=== PATIENT | male | born 1960 | race Caucasian/White ===

== ENCOUNTER → 2021-06-05 09:53 | Outpatient (CLI) | payer OTHER, MEDICAID, SELFPAY ==
[2021-06-05 11:25] LABS: Vitamin B12 > 1000 pg/mL (239-931)
== END ==
PROVIDERS: PCP Physician Assistant; Referring Provider Physician Assistant; Visit Provider Physician Assistant
DX: D51.9 Vitamin B12 deficiency anemia, unspecified (principal)
CPT/HCPCS: 36415; 82607

== ENCOUNTER → 2021-07-03 08:54 | Outpatient (CLI) | payer OTHER, MEDICAID, SELFPAY ==
[2021-07-03 10:20] LABS: Vitamin B12 986 pg/mL (239-931)
== END ==
PROVIDERS: PCP Physician Assistant; Referring Provider Physician Assistant; Visit Provider Physician Assistant
DX: D51.9 Vitamin B12 deficiency anemia, unspecified (principal)
CPT/HCPCS: 36415; 82607

== ENCOUNTER → 2021-09-02 10:31 | Outpatient (CLI) | payer OTHER, MEDICAID, SELFPAY ==
--- NOTE | 2021-09-02 10:33 | DI.RAD.S_ITS ---
PROCEDURE: XR CHEST 2V INDICATIONS: persistent cough x3 wk, slight weakness, eval for pneumonia TECHNIQUE: 2 views of the chest were acquired. COMPARISON: None. FINDINGS: Surgical changes and devices: None. Lungs and pleura: Lungs are clear. No pleural effusions or pneumothorax. Mediastinum: Mediastinal contours are normal. Heart size is normal. Bones and chest wall: No suspicious bony abnormalities. Soft tissues appear unremarkable. IMPRESSION: No acute cardiopulmonary disease. Dictated by: Shaila Cardoso M.D. on 09/02/2021 at 11:18 Approved by: Shaila Cardoso M.D. on 09/02/2021 at 11:18
== END ==
PROVIDERS: PCP Physician Assistant; Referring Provider Student in an Organized Health Care Education/Training Program; Visit Provider Student in an Organized Health Care Education/Training Program
DX: R05.3 Chronic cough (principal)
CPT/HCPCS: 71046

== ENCOUNTER → 2021-09-06 11:04 | Outpatient (CLI) | payer OTHER, MEDICAID, SELFPAY ==
[2021-09-06 14:41] LABS: Vitamin B12 986 pg/mL (239-931)
[2021-09-14 17:17] LABS: Percent Free Testosterone 1.75 % (1.50-4.20); Testosterone Free 11.59 ng/dL (5.00-21.00); Testosterone Total 662.2 ng/dL (264.0-916.0)
== END ==
PROVIDERS: Family Provider Physician Assistant; PCP Physician Assistant; Referring Provider Physician Assistant; Visit Provider Physician Assistant
DX: R53.83 Other fatigue (principal); D51.9 Vitamin B12 deficiency anemia, unspecified
CPT/HCPCS: 36415; 82607; 84402; 84403

== ENCOUNTER → 2021-09-16 08:06 | Outpatient (CLI) | payer OTHER, MEDICAID, SELFPAY ==
[2021-09-16 09:03] LABS: Add Manual Diff / Slide Review NO; Basophils Absolute Auto 100 /uL (0-100); Basophils Percent Auto 1.2 % (0-2); Eosinophils Absolute Auto 400 /uL (0-450); Eosinophils Percent Auto 7.9 % (2-4); Hematocrit 40.8 % (41-53); Hemoglobin 14.3 g/dL (13.5-17.5); Lymphocytes Absolute Auto 1700 /uL (1100-4500); Lymphocytes Percent Auto 31.9 % (25-40); Mean Corpuscular Hemoglobin 31.6 PG (26-34); Mean Corpuscular Volume 90.3 fL (80-100); Monocytes Absolute Auto 600 /uL (0-900); Monocytes Percent Auto 10.8 % (3-14); Neutrophils Absolute Auto 2600 /uL (1500-7000); Neutrophils Percent Auto 48.2 % (50-75); Platelet Count 294 X10^3/uL (150-400); Red Blood Cell Count 4.51 X10^6/uL (4.5-5.9); Red Cell Distribution Width 12.7 % (11.6-14.8); White Blood Cell Count 5.4 X10^3/uL (4.5-11.0)
[2021-09-16 09:33] LABS: Alanine Aminotransferase 19 IU/L (<50); Albumin 4.3 g/dL (3.5-5.0); Albumin Globulin Ratio 1.5 (1.0-2.8); Alkaline Phosphatase 62 U/L (38-126); Aspartate Aminotransferase 24 IU/L (17-59); BUN Creatinine Ratio 26.8 (6-22); Bilirubin Total 0.8 mg/dL (0.2-1.3); Blood Urea Nitrogen 22 mg/dL (9-20); Calcium 9.4 mg/dL (8.4-10.2); Carbon Dioxide 29 mmol/L (22-32); Chloride 103 mmol/L (98-107); Cholesterol 196 mg/dL (140-199); Estimated Glomerular Filt Rate > 60 mL/min (>60); Globulin 2.8 g/dL (1.7-4.1); Glucose 102 mg/dL (80-110); HDL Cholesterol 52 mg/dL (40-60); HEMOLYSIS < 15 (0-50); LDL Cholesterol Calculated 123 mg/dL (<100); Magnesium 2.2 mg/dL (1.6-2.3); Sodium 137 mmol/L (137-145); Total Protein 7.1 g/dL (6.3-8.2); Triglycerides 107 mg/dL (35-150)
[2021-09-16 09:42] LABS: Potassium 5.4 mmol/L (3.4-5.1)
[2021-09-16 10:38] LABS: TSH w/ Reflex to FT4 2.19 uIU/mL (0.47-4.68)
[2021-09-16 10:40] LABS: Folate > 20.0 ng/mL (2.76-20.0); Vitamin B12 914 pg/mL (239-931)
== END ==
PROVIDERS: Family Provider Physician Assistant; PCP Family Medicine; Referring Provider Family Medicine; Visit Provider Family Medicine
DX: D51.9 Vitamin B12 deficiency anemia, unspecified (principal); F41.8 Other specified anxiety disorders; Z13.220 Encounter for screening for lipoid disorders; R53.82 Chronic fatigue, unspecified
CPT/HCPCS: 36415; 80053; 80061; 82607; 82746; 83735; 84443; 85025

== ENCOUNTER 2021-11-21 09:45 | Outpatient (RCR) | payer OTHER, MEDICAID, SELFPAY ==
--- NOTE | 2021-09-05 17:36 | PT.OIE ---
Current Diagnoses Low back pain, unspecified (09/05/21) Visit Care Team Role Provider Type Katy Miller PA-C Attending Provider Non-Staff Family Provider Primary Care Provider Referring Provider Specialty: Medical Address: [address] [place] [address], [id number] Email: Physical Therapy Initial Evaluation PT-OP-A Visit Information Start: 08/30/21 20:11 Freq: Status: Active Protocol: Document 09/05/21 08:09 LRN (Rec: 09/05/21 12:06 LRN [id number]) Out-Patient Physical Therapy Visit Information Visit Information Visit Type Initial Evaluation Visit Start Time 08:15 Visit Stop Time 09:06 Total Visit Minutes 51 Visit Number 1 Evaluation Information Evaluation Date 09/05/21 PT-OP-B Current Condition Start: 08/30/21 20:11 Freq: Status: Active Protocol: Document 09/05/21 08:09 LRN (Rec: 09/05/21 12:06 LRN [id number]) Current Condition History of Current Condition Onset Date Few weeks ago. Current Complaints Pn primarily in L LB>buttock> lateral leg into big toe, little in umbilicus History of Current Condition Frequent flared up episodes of back pain that worsens for ~ 1 week. Currently in a stable place in his back. Decades of history of back pain. Always looking to try and improve. Walk/hike daily but very fragile. If turn too fast can have a lot of problems for a week. Must be careful how he sits, moves, bend over, etc. Gets numbness in the legs and into the feet when hurts self. Hopes to be able to strengthen muscle groups to stabilize core. Laser surgery to remove 2 portions of disc and remove bone spurs in the lumbar spine somewhere in [facility] for lumbar region ~ 6yrs ago and restored ability to walk. Accupuncture helped to relax for the hour, Tramadol was very helpful. Prior Treatments and Tests Has had physical therapy and variable treatments. Just came from [facility] and just had EStim and massage . Like the EStim. After surgery in [facility] had therapy ex's, and ES, massage, heat. Developmental History Developmental History Kids age 27, 23 & two 4 yr olds. Couldn't carry first 2 kids. 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 Treatment Goals Patient/Caregiver Goals Learn how to take care of the body and strengthen the core. Make him more resilient to situations and help him to be able to do more with his 4 yr old. Would love to do gardening. 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 Sometimes must ask for help to lift heavy objects and heavy objects putting away above head. Current Functional Impairments (Reported) Functional Limitations- ADL's Difficulty bending over, must be careful picking up children . Can't run Personal Factors Other Personal Factors That May Effect Has 4 yr old twins. Therapy/Recovery Decade long history of back pain and surgeries. PT-OP-C Subjective Start: 08/30/21 20:11 Freq: Status: Active Protocol: Document 09/05/21 08:09 LRN (Rec: 09/05/21 12:06 LRN [id number]) Patient Questionnaires Oswestry Low Back Index Oswestry Score 24 Oswestry Impairment 20 to 39% Impaired (Score 20- 39) OP-PT Pain Assessment Pain Assessment Grid Paper Pain Assessment Grid Completed Yes Location L LB & LE Pain Location Details L LB>buttock, radiating laterally into LLE into toe & sometimes umbilicus Intensity 8 Scale Used Numeric (0 - 10) Description Radiating Description- Other Pain range: present 2-5, when hurt 4-8. Frequency Constant Pain Aggravating Factors Activity Pain Alleviating Factors Cold,Medication,Exercise, Visual Imagery,Meditation Other Pain Alleviating Factors Walking, anti-inflammatory, meloxicam, ms relaxors not helpful, Tramadol PT-OP-G Mobility & Gait Start: 08/30/21 20:11 Freq: Status: Active Protocol: Document 09/05/21 08:09 LRN (Rec: 09/05/21 12:06 LRN [id number]) OP Gait Assessment Gait Gait Assistance Required: Independent Able to Maintain Weight Bearing Status Yes During Gait Assistive Devices Assistive Device None Comments Gait Comments Trendelenburg lean to the R. PT-OP-J Posture/Palpation/Skin Start: 08/30/21 20:11 Freq: Status: Active Protocol: Document 09/05/21 08:09 LRN (Rec: 09/05/21 12:06 LRN [id number]) Posture Evaluation Position Standing L-Spine Posture Increased Lordosis Shoulder Posture (L) Elevated Pelvis Posture Anteriorly Tilted Comments Posture Comments L leg a little atrophy, L lower paraspinals mild atrophy . L foot slightly ER'd Palpation Assessment Location Low Back Palpation Location Decreased tone at L lower paraspinals. PT-OP-K Range of Motion Start: 08/30/21 20:11 Freq: Status: Active Protocol: Document 09/05/21 08:09 LRN (Rec: 09/05/21 12:06 LRN [id number]) Lumbar Spine Range of Motion Lumbar Spine Active Degrees Testing Position Standing Flexion 80 Extension 5 Rotation Left 10 Rotation Right 10 Lateral Flexion Left 10 Lateral Flexion Right 10 ROM Limitations Pain Comments FB: 80 deg's with 60's hip flexion BB: 5 deg's with 5 deg's hip extension. Increased LLE pain with repetitive forward bend. Hip Goniometric Range of Motion Hip Right Passive Testing Position Supine Straight Leg Raise 85 Internal Rotation 20 External Rotation 30 Left Passive Testing Position Supine Straight Leg Raise 60 Internal Rotation 0 External Rotation 65 PT-OP-L Special Tests Start: 08/30/21 20:11 Freq: Status: Active Protocol: Document 09/05/21 08:09 LRN (Rec: 09/05/21 12:06 LRN [id number]) Special Tests Lumbar Spine Special Tests [place] Test Results + bilaterally Straight Leg Raise Test Results 85 R, 60 L Standing Flexion Test Results + Comments LLB/LLE pain Vertical Spine Loading Test Results - Comments No pain, pt went into extension PT-OP-M Strength Start: 08/30/21 20:11 Freq: Status: Active Protocol: Document 09/05/21 08:09 LRN (Rec: 09/05/21 12:06 LRN [id number]) Trunk Strength Trunk Manual Muscle Testing Core Stabilization Lacks stability with hip flex and AB/AD Hip Strength Hip Manual Muscle Testing Right Flexion (L2) 5 Normal Extension (S1) 4 Good Abduction 5 Normal Adduction 5 Normal External Rotation 5 Normal Internal Rotation 3 Fair Left Flexion (L2) 2+ Poor+ Extension (S1) 3- Fair- Abduction 4+ Good+ Adduction 2 Poor External Rotation 3 Fair Internal Rotation 3+ Fair+ PT-OP-Q Treatments Start: 08/30/21 20:11 Freq: Status: Active Protocol: Document 09/05/21 08:09 LRN (Rec: 09/05/21 12:06 LRN [id number]) Self-Care/Home Management Treatment Education Other Education Discussed results of evaluation, discussed at length goals, and plan of care (POC). Pt agreeable to goals and POC. Activities Self-Care/Home Management Activities Verbal review of some of pt's current home program. PT-OP-T Assessment and Plan Start: 08/30/21 20:11 Freq: Status: Active Protocol: Document 09/05/21 08:09 LRN (Rec: 09/05/21 12:06 LRN [id number]) Physical Therapy Assessment Rehab Potential Rehabilitation Potential Good Evaluation Complexity Number of Personal Factors/Comorbidities 1-2 Number of Body Systems Impaired 4 or More Clinical Presentation at Evaluation Evolving Impairments Impairments Activity Tolerance,Functional Mobility,Gait,Pain,Posture,ROM ,Soft Tissue Mobility,Strength Goals Three Impairment Strength Short Term Goal (STG) Lift a little more weight STG Duration 10/20/21 Sample Weaver Goal (LTG) Improve core strength. LTG Duration 12/06/21 Two Impairment Decreased mobility due to back L hip/LE pain. Impairment Pt requires ~ 1 week of recovery when he flares up his back. Pt has L LB/buttock pain and sometimes LE/foot pain when reaching outward to do activities. Short Term Goal (STG) Improve pt ability to be more resilient to mobility situations (less recovery time when causing a flare up) STG Duration 10/20/21 Sample Weaver Goal (LTG) Pt will be able to have greater tolerance to reaching away from body and therefore able to do more with his 4 yr olds. LTG Duration 12/06/21 One Impairment Lacks appropriage HEP Short Term Goal (STG) Pt educated in Proper body mechanics for daily activities and possibly be able to help with gardening. STG Duration 09/13/21 Group Home Goal (LTG) Pt will be educated in a self care HEP of core/hip mobility and strengthening exercises. 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 The pt is quite limited in trunk and hip mobility as well as strength in his L LE, possibly causing his Trendelenburg type gait. The pt will benefit from skilled physical therapy for pt education, therapeutic ex, manual therapy and gait training. Physical Therapy Plan Frequency and Duration Frequency of Treatment 2x/Week Plan of Care Start Date 09/05/21 Plan of Care End Date 12/06/21 Therapeutic Interventions Therapeutic Interventions Aquatic Therapy,Home Exercise Program,Joint Mobilizations, Manual Therapy,Patient/ Caregiver Education,Self-Care/ Home Management,Soft Tissue Mobilization,Taping, Therapeutic Activities, Therapeutic Exercises Modalities Cold Pack/Ice Massage,Electric Stimulation,Hot Packs, Traction- Mechanical, Ultrasound Next Visit Focus/Plan Next Note Type Treatment Note Next Visit Plan Assess Prone press ups and manual traction. Focus on decreasing soft tissue muscle guarding and pain, improving fascial mobility & improving lumbar/L hip mobility and for hip/core/pelvic stabilization. Pt education will be focused on proper transfers, proper gait, self care and home exercises.
--- NOTE | 2021-09-05 17:36 | PT.OPPOC ---
Physical, Occupational & Speech Therapy At [facility] Current Diagnoses Low back pain, unspecified (09/05/21) Visit Care Team Role Provider Type Katy Miller PA-C Attending Provider Non-Staff Family Provider Primary Care Provider Referring Provider Specialty: Medical Address: [address] [place] [address], [id number] Email: Plan Of Care PT-OP-T Assessment and Plan Start: 08/30/21 20:11 Freq: Status: Active Protocol: Document 09/05/21 08:09 LRN (Rec: 09/05/21 12:06 LRN [id number]) Physical Therapy Assessment Rehab Potential Rehabilitation Potential Good Evaluation Complexity Number of Personal Factors/Comorbidities 1-2 Number of Body Systems Impaired 4 or More Clinical Presentation at Evaluation Evolving Impairments Impairments Activity Tolerance,Functional Mobility,Gait,Pain,Posture,ROM ,Soft Tissue Mobility,Strength Goals Three Impairment Strength Short Term Goal (STG) Lift a little more weight STG Duration 10/20/21 Halfway Goal (LTG) Improve core strength. LTG Duration 12/06/21 Two Impairment Decreased mobility due to back L hip/LE pain. Impairment Pt requires ~ 1 week of recovery when he flares up his back. Pt has L LB/buttock pain and sometimes LE/foot pain when reaching outward to do activities. Short Term Goal (STG) Improve pt ability to be more resilient to mobility situations (less recovery time when causing a flare up) STG Duration 10/20/21 Halfway Goal (LTG) Pt will be able to have greater tolerance to reaching away from body and therefore able to do more with his 4 yr olds. LTG Duration 12/06/21 One Impairment Lacks appropriage HEP Short Term Goal (STG) Pt educated in Proper body mechanics for daily activities and possibly be able to help with gardening. STG Duration 09/13/21 Halfway Goal (LTG) Pt will be educated in a self care HEP of core/hip mobility and strengthening exercises. 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 The pt is quite limited in trunk and hip mobility as well as strength in his L LE, possibly causing his Trendelenburg type gait. The pt will benefit from skilled physical therapy for pt education, therapeutic ex, manual therapy and gait training. Physical Therapy Plan Frequency and Duration Frequency of Treatment 2x/Week Plan of Care Start Date 09/05/21 Plan of Care End Date 12/06/21 Therapeutic Interventions Therapeutic Interventions Aquatic Therapy,Home Exercise Program,Joint Mobilizations, Manual Therapy,Patient/ Caregiver Education,Self-Care/ Home Management,Soft Tissue Mobilization,Taping, Therapeutic Activities, Therapeutic Exercises Modalities Cold Pack/Ice Massage,Electric Stimulation,Hot Packs, Traction- Mechanical, Ultrasound Next Visit Focus/Plan Next Note Type Treatment Note Next Visit Plan Assess Prone press ups and manual traction. Focus on decreasing soft tissue muscle guarding and pain, improving fascial mobility & improving lumbar/L hip mobility and for hip/core/pelvic stabilization. Pt education will be focused on proper transfers, proper gait, self care and home exercises. Plan of Care Dates Plan of Care Start Date 09/05/21 Plan of Care End Date 12/06/21 Electronically Signed by: Vy Valentine, PT 09/06/21 4625 If you are in agreement with this Plan of Care, please return a signed and dated copy. I have reviewed this Plan of Care and certify that the skilled therapy services above are required to meet the patient?s needs. Physician Signature Date Printed Name and Credentials Clinical Instructor Signature Printed Name and Credentials
--- NOTE | 2021-09-09 15:23 | PT.OTN ---
Current Diagnoses Low back pain, unspecified (09/09/21) Physical Therapy Treatment Note PT-OP-A Visit Information Start: 08/30/21 20:11 Freq: Status: Active Protocol: Document 09/09/21 14:36 NBM (Rec: 09/09/21 18:34 NBM [id number]) Out-Patient Physical Therapy Visit Information Visit Information Visit Type Treatment Note Visit Start Time 14:35 Visit Stop Time 15:23 Total Visit Minutes 48 Visit Number 2 Number of ADMINISTRATIVE TECHNICIAN Visits 1 PT-OP-B Current Condition Start: 08/30/21 20:11 Freq: Status: Active Protocol: Document 09/05/21 08:09 LRN (Rec: 09/05/21 12:06 LRN [id number]) Current Condition History of Current Condition Onset Date Few weeks ago. Current Complaints Pn primarily in L LB>buttock> lateral leg into big toe, little in umbilicus History of Current Condition Frequent flared up episodes of back pain that worsens for ~ 1 week. Currently in a stable place in his back. Decades of history of back pain. Always looking to try and improve. Walk/hike daily but very fragile. If turn too fast can have a lot of problems for a week. Must be careful how he sits, moves, bend over, etc. Gets numbness in the legs and into the feet when hurts self. Hopes to be able to strengthen muscle groups to stabilize core. Laser surgery to remove 2 portions of disc and remove bone spurs in the lumbar spine somewhere in [facility] for lumbar region ~ 6yrs ago and restored ability to walk. Accupuncture helped to relax for the hour, Tramadol was very helpful. Prior Treatments and Tests Has had physical therapy and variable treatments. Just came from [facility] and just had EStim and massage . Like the EStim. After surgery in [facility] had therapy ex's, and ES, massage, heat. Developmental History Developmental History Kids age 27, 23 & two 4 yr olds. Couldn't carry first 2 kids. 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 Treatment Goals Patient/Caregiver Goals Learn how to take care of the body and strengthen the core. Make him more resilient to situations and help him to be able to do more with his 4 yr old. Would love to do gardening. 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 Sometimes must ask for help to lift heavy objects and heavy objects putting away above head. Current Functional Impairments (Reported) Functional Limitations- ADL's Difficulty bending over, must be careful picking up children . Can't run Personal Factors Other Personal Factors That May Effect Has 4 yr old twins. Therapy/Recovery Decade long history of back pain and surgeries. PT-OP-C Subjective Start: 08/30/21 20:11 Freq: Status: Active Protocol: Document 09/09/21 14:36 NBM (Rec: 09/09/21 18:34 NBM [id number]) OP-PT Subjective Patient Comments Patient Comments Pt reports his Left-sided low back pain flared up yesterday hiking quickly uphill and he arrives w/ pain and stiffness in his back and L hip. He states the pain is difficult to describe in words or numbers as he has learned to live w/ it for years. He used to have a home stretching program but hasn't since moving in w/ sister. due to space. PT-OP-G Mobility & Gait Start: 08/30/21 20:11 Freq: Status: Active Protocol: Document 09/05/21 08:09 LRN (Rec: 09/05/21 12:06 LRN [id number]) OP Gait Assessment Gait Gait Assistance Required: Independent Able to Maintain Weight Bearing Status Yes During Gait Assistive Devices Assistive Device None Comments Gait Comments Trendelenburg lean to the R. PT-OP-J Posture/Palpation/Skin Start: 08/30/21 20:11 Freq: Status: Active Protocol: Document 09/05/21 08:09 LRN (Rec: 09/05/21 12:06 LRN [id number]) Posture Evaluation Position Standing L-Spine Posture Increased Lordosis Shoulder Posture (L) Elevated Pelvis Posture Anteriorly Tilted Comments Posture Comments L leg a little atrophy, L lower paraspinals mild atrophy . L foot slightly ER'd Palpation Assessment Location Low Back Palpation Location Decreased tone at L lower paraspinals. PT-OP-K Range of Motion Start: 08/30/21 20:11 Freq: Status: Active Protocol: Document 09/05/21 08:09 LRN (Rec: 09/05/21 12:06 LRN [id number]) Lumbar Spine Range of Motion Lumbar Spine Active Degrees Testing Position Standing Flexion 80 Extension 5 Rotation Left 10 Rotation Right 10 Lateral Flexion Left 10 Lateral Flexion Right 10 ROM Limitations Pain Comments FB: 80 deg's with 60's hip flexion BB: 5 deg's with 5 deg's hip extension. Increased LLE pain with repetitive forward bend. Hip Goniometric Range of Motion Hip Right Passive Testing Position Supine Straight Leg Raise 85 Internal Rotation 20 External Rotation 30 Left Passive Testing Position Supine Straight Leg Raise 60 Internal Rotation 0 External Rotation 65 PT-OP-L Special Tests Start: 08/30/21 20:11 Freq: Status: Active Protocol: Document 09/05/21 08:09 LRN (Rec: 09/05/21 12:06 LRN [id number]) Special Tests Lumbar Spine Special Tests [place] Test Results + bilaterally Straight Leg Raise Test Results 85 R, 60 L Standing Flexion Test Results + Comments LLB/LLE pain Vertical Spine Loading Test Results - Comments No pain, pt went into extension PT-OP-M Strength Start: 08/30/21 20:11 Freq: Status: Active Protocol: Document 09/05/21 08:09 LRN (Rec: 09/05/21 12:06 LRN [id number]) Trunk Strength Trunk Manual Muscle Testing Core Stabilization Lacks stability with hip flex and AB/AD Hip Strength Hip Manual Muscle Testing Right Flexion (L2) 5 Normal Extension (S1) 4 Good Abduction 5 Normal Adduction 5 Normal External Rotation 5 Normal Internal Rotation 3 Fair Left Flexion (L2) 2+ Poor+ Extension (S1) 3- Fair- Abduction 4+ Good+ Adduction 2 Poor External Rotation 3 Fair Internal Rotation 3+ Fair+ PT-OP-Q Treatments Start: 08/30/21 20:11 Freq: Status: Active Protocol: Document 09/09/21 14:36 NBM (Rec: 09/09/21 18:34 NBM [id number]) Cardio Equipment Bicycle (Upright) Duration (Minutes) 4 Resistance 5 Seat Position 8 Other dc'd d/t discomfort in L glute - try Seat Position 9 Therapeutic Exercises Supine Exercises LTR Supine Exercise Name Lower trunk rotation Side bilateral Equipment Used Green TBall Reps/Minutes x10 ea IT Band stretch Side bilateral Equipment Used w/ strap Reps/Minutes 2 x 60 ea Calf stretch Supine Exercise Name added to HEP Side bilateral Equipment Used w/strap Reps/Minutes 2 x 60 ea HS Stretch Supine Exercise Name added to HEP Side bilateral Equipment Used w/ strap Reps/Minutes 2 x 60 ea Piriformis Stretch Supine Exercise Name Figure 4 stretch - added to HEP Side bilateral Reps/Minutes 2 x 60 ea Comments long towel instead of hands to avoid thoracic/cervical flexion SKTC Supine Exercise Name added to HEP Side bilateral Reps/Minutes 2 x 60 ea Prone Exercises Press-up Reps/Minutes x3 Comments vc for form and to avoid push- up; dc'd due to LBP discomfort Sidelying Exercises Open Book Stretch Side bilateral Reps/Minutes x10 ea Comments hold in open for a few breaths Manual Therapy Treatment Soft Tissue Mobilization Hip Body Location L Glutes, L Piriformis Mobilization Type Cross-Friction,Rolling, Sustained Pressure,Trigger Point Release Intensity/Depth Moderate Body Position Prone Comments w/pillow support under LE Low Back Body Location L QL Mobilization Type Rolling,Sustained Pressure Intensity/Depth Moderate Body Position Prone Comments w/pillow support under LE Self-Care/Home Management Treatment Education Patient Education Body Mechanics,Home Exercise Program,Pain Management Other Education Discussed lying 90/90 w/ legs on chair to manage LBP. Educated on proper body mechanics with daily activities - HO given. HEP initiated: SKTC, Figure 4, HS, Calf, Open Book - HO given PT-OP-R Modalities Start: 08/30/21 20:11 Freq: Status: Active Protocol: Document 09/09/21 14:36 NBM (Rec: 09/09/21 18:37 [facility] [id number]) Hot Pack/Cold Pack Treatment Cold Pack Location Lumbar and L glute Patient Position Prone Treatment Duration (minutes) 10 Patient Tolerance Good Comments lumbar cold pack PT-OP-T Assessment and Plan Start: 08/30/21 20:11 Freq: Status: Active Protocol: Document 09/09/21 14:36 NBM (Rec: 09/09/21 18:34 [facility] [id number]) Physical Therapy Assessment Goals Three Impairment Strength Short Term Goal (STG) Lift a little more weight STG Duration 10/20/21 Mcfp Goal (LTG) Improve core strength. LTG Duration 12/06/21 Two Impairment Decreased mobility due to back L hip/LE pain. Impairment Pt requires ~ 1 week of recovery when he flares up his back. Pt has L LB/buttock pain and sometimes LE/foot pain when reaching outward to do activities. Short Term Goal (STG) Improve pt ability to be more resilient to mobility situations (less recovery time when causing a flare up) STG Duration 10/20/21 Mcfp Goal (LTG) Pt will be able to have greater tolerance to reaching away from body and therefore able to do more with his 4 yr olds. LTG Duration 12/06/21 One Impairment Lacks appropriage HEP Short Term Goal (STG) Pt educated in Proper body mechanics for daily activities and possibly be able to help with gardening. STG Duration 09/13/21 Line Service Person Goal (LTG) Pt will be educated in a self care HEP of core/hip mobility and strengthening exercises. LTG Duration 12/06/21 Assessment Summary Assessment Pt presents w/ left-sided low back pain flare-up since yesterday w/ associated L hip pain. Treatment focus today on improving fascial mobility and lumbar/L hip mobility - HO given for HEP and performing daily activities w/ improved body mechanics. Pt unable to tolerate upright bicycle due to L glute discomfort or prone press-ups due to low back discomfort. Pt tolerated manual therapy and reported decreased pain end of session. Pt will benefit from continued skilled therapeutic intervention. Physical Therapy Plan Next Visit Focus/Plan Next Note Type Treatment Note Next Visit Plan Review HEP (add IT band stretch). Upright bicycle as tolerated. Reassess Prone press ups. Consider initiation of supine/quadruped core stabilization exercises and QL doorway stretch. Progress POC . POC: Manual traction. Focus on decreasing soft tissue muscle guarding and pain, improving fascial mobility & improving lumbar/L hip mobility and for hip/core/ pelvic stabilization. Pt education will be focused on proper transfers, proper gait, self care and home exercises.
--- NOTE | 2021-09-18 07:29 | PT-OP ANOTE ---
Pt cancelled appt via voicemail and walked in on 09/17 to report to [place] insurance issues, he is working correct and update us if unableto attend next scheduled appt otherwise plans on attending.
--- NOTE | 2021-09-24 08:17 | PT.OTN ---
Current Diagnoses Low back pain, unspecified (09/24/21) Physical Therapy Treatment Note PT-OP-A Visit Information Start: 08/30/21 20:11 Freq: Status: Active Protocol: Document 09/24/21 07:33 SP (Rec: 09/24/21 08:18 SP [id number]) Out-Patient Physical Therapy Visit Information Visit Information Visit Type Treatment Note Visit Start Time 07:33 Visit Stop Time 08:17 Total Visit Minutes 44 Visit Number 4 Number of DANCE HISTORIAN Visits 1 Evaluation Information Evaluation Date 09/05/21 PT-OP-B Current Condition Start: 08/30/21 20:11 Freq: Status: Active Protocol: Document 09/05/21 08:09 LRN (Rec: 09/05/21 12:06 LRN [id number]) Current Condition History of Current Condition Onset Date Few weeks ago. Current Complaints Pn primarily in L LB>buttock> lateral leg into big toe, little in umbilicus History of Current Condition Frequent flared up episodes of back pain that worsens for ~ 1 week. Currently in a stable place in his back. Decades of history of back pain. Always looking to try and improve. Walk/hike daily but very fragile. If turn too fast can have a lot of problems for a week. Must be careful how he sits, moves, bend over, etc. Gets numbness in the legs and into the feet when hurts self. Hopes to be able to strengthen muscle groups to stabilize core. Laser surgery to remove 2 portions of disc and remove bone spurs in the lumbar spine somewhere in [facility] for lumbar region ~ 6yrs ago and restored ability to walk. Accupuncture helped to relax for the hour, Tramadol was very helpful. Prior Treatments and Tests Has had physical therapy and variable treatments. Just came from [facility] and just had EStim and massage . Like the EStim. After surgery in [facility] had therapy ex's, and ES, massage, heat. Developmental History Developmental History Kids age 27, 23 & two 4 yr olds. Couldn't carry first 2 kids. 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 Treatment Goals Patient/Caregiver Goals Learn how to take care of the body and strengthen the core. Make him more resilient to situations and help him to be able to do more with his 4 yr old. Would love to do gardening. 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 Sometimes must ask for help to lift heavy objects and heavy objects putting away above head. Current Functional Impairments (Reported) Functional Limitations- ADL's Difficulty bending over, must be careful picking up children . Can't run Personal Factors Other Personal Factors That May Effect Has 4 yr old twins. Therapy/Recovery Decade long history of back pain and surgeries. 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 PT-OP-G Mobility & Gait Start: 08/30/21 20:11 Freq: Status: Active Protocol: Document 09/05/21 08:09 LRN (Rec: 09/05/21 12:06 LRN [id number]) OP Gait Assessment Gait Gait Assistance Required: Independent Able to Maintain Weight Bearing Status Yes During Gait Assistive Devices Assistive Device None Comments Gait Comments Trendelenburg lean to the R. PT-OP-J Posture/Palpation/Skin Start: 08/30/21 20:11 Freq: Status: Active Protocol: Document 09/05/21 08:09 LRN (Rec: 09/05/21 12:06 LRN [id number]) Posture Evaluation Position Standing L-Spine Posture Increased Lordosis Shoulder Posture (L) Elevated Pelvis Posture Anteriorly Tilted Comments Posture Comments L leg a little atrophy, L lower paraspinals mild atrophy . L foot slightly ER'd Palpation Assessment Location Low Back Palpation Location Decreased tone at L lower paraspinals. PT-OP-K Range of Motion Start: 08/30/21 20:11 Freq: Status: Active Protocol: Document 09/05/21 08:09 LRN (Rec: 09/05/21 12:06 LRN [id number]) Lumbar Spine Range of Motion Lumbar Spine Active Degrees Testing Position Standing Flexion 80 Extension 5 Rotation Left 10 Rotation Right 10 Lateral Flexion Left 10 Lateral Flexion Right 10 ROM Limitations Pain Comments FB: 80 deg's with 60's hip flexion BB: 5 deg's with 5 deg's hip extension. Increased LLE pain with repetitive forward bend. Hip Goniometric Range of Motion Hip Right Passive Testing Position Supine Straight Leg Raise 85 Internal Rotation 20 External Rotation 30 Left Passive Testing Position Supine Straight Leg Raise 60 Internal Rotation 0 External Rotation 65 PT-OP-L Special Tests Start: 08/30/21 20:11 Freq: Status: Active Protocol: Document 09/05/21 08:09 LRN (Rec: 09/05/21 12:06 LRN [id number]) Special Tests Lumbar Spine Special Tests [place] Test Results + bilaterally Straight Leg Raise Test Results 85 R, 60 L Standing Flexion Test Results + Comments LLB/LLE pain Vertical Spine Loading Test Results - Comments No pain, pt went into extension PT-OP-M Strength Start: 08/30/21 20:11 Freq: Status: Active Protocol: Document 09/05/21 08:09 LRN (Rec: 09/05/21 12:06 LRN [id number]) Trunk Strength Trunk Manual Muscle Testing Core Stabilization Lacks stability with hip flex and AB/AD Hip Strength Hip Manual Muscle Testing Right Flexion (L2) 5 Normal Extension (S1) 4 Good Abduction 5 Normal Adduction 5 Normal External Rotation 5 Normal Internal Rotation 3 Fair Left Flexion (L2) 2+ Poor+ Extension (S1) 3- Fair- Abduction 4+ Good+ Adduction 2 Poor External Rotation 3 Fair Internal Rotation 3+ Fair+ PT-OP-Q Treatments Start: 08/30/21 20:11 Freq: Status: Active Protocol: Document 09/24/21 07:33 SP (Rec: 09/24/21 08:18 SP [id number]) Cardio Equipment Bicycle (Upright) Duration (Minutes) 6 Resistance 10 Seat Position 10 Therapeutic Exercises Supine Exercises Iliopsoas stretch Supine Exercise Name HEP reviewed: Iliopsoas stretch Side bilateral Reps/Minutes 60 x 2 each LTR Supine Exercise Name HEP reviewed : Lower trunk rotation Side bilateral Equipment Used Green TBall Reps/Minutes x10 ea HS Stretch Supine Exercise Name HEP REviewed: Hamstring/LE neural stretch Side bilateral Equipment Used w/ strap Reps/Minutes 2 x 60 ea Sitting Exercises self STMs Sitting Exercise Name rolling pin: quad, HS, calf, ITB; ball wall: gluts, ES Comments added to HEP with good feedback response Other Exercises Quadruped Other Exercise Name cat camel, UE/LE Ext- added HEP Side bilateral Reps/Minutes 5 reps Comments g Manual Therapy Treatment Soft Tissue Mobilization iliopsoas Body Location L>R Mobilization Type Sustained Pressure Intensity/Depth Moderate Body Position Hooklying Comments Manual with breath Self-Care/Home Management Treatment Education Patient Education Home Exercise Program,Posture Other Education Initiated self STMs ball wall, rolling pin, quadruped UE/ LE ext, cat camel. PT-OP-R Modalities Start: 08/30/21 20:11 Freq: Status: Active Protocol: Document 09/09/21 14:36 NBM (Rec: 09/09/21 18:37 NBM [id number]) Hot Pack/Cold Pack Treatment Cold Pack Location Lumbar and L glute Patient Position Prone Treatment Duration (minutes) 10 Patient Tolerance Good Comments lumbar cold pack PT-OP-T Assessment and Plan Start: 08/30/21 20:11 Freq: Status: Active Protocol: Document 09/24/21 07:33 SP (Rec: 09/24/21 08:18 SP [id number]) Physical Therapy Assessment Goals Three Impairment Strength Short Term Goal (STG) Lift a little more weight STG Duration 10/20/21 Correction Goal (LTG) Improve core strength. LTG Duration 12/06/21 Two Impairment Decreased mobility due to back L hip/LE pain. Impairment Pt requires ~ 1 week of recovery when he flares up his back. Pt has L LB/buttock pain and sometimes LE/foot pain when reaching outward to do activities. Short Term Goal (STG) Improve pt ability to be more resilient to mobility situations (less recovery time when causing a flare up) STG Duration 10/20/21 Correction Goal (LTG) Pt will be able to have greater tolerance to reaching away from body and therefore able to do more with his 4 yr olds. LTG Duration 12/06/21 One Impairment Lacks appropriage HEP Short Term Goal (STG) Pt educated in Proper body mechanics for daily activities and possibly be able to help with gardening. STG Duration 09/13/21 (09/13/21: MET GOAL) Water Plumber Goal (LTG) Pt will be educated in a self care HEP of core/hip mobility and strengthening exercises. (09/13/21: HEP: hip mobility ex's) 09/24/21: Initiated self STMs ball wall, rolling pin, quadruped UE/ LE ext, cat camel. LTG Duration 12/06/21 (09/24/21: Progressed ) Assessment Summary Assessment Pt responded well to manual over iliopsoas, noted releasing into LB and RLE, has never felt before. Instruduced self STMs LE w/ rolling pin and racquetball on wall to LB, glut region for decrease tightness with good feedback response. Intiated cat camel, limited end range/ encouraged increase ROM, core UE/ LE ext with cues for neutral pelvis and only lift range can stabilize and space between BLEs for increase hip abd fac [id number]. Physical Therapy Plan Frequency and Duration Frequency of Treatment 2x/Week Plan of Care Start Date 09/05/21 Plan of Care End Date 12/06/21 Therapeutic Interventions Therapeutic Interventions Aquatic Therapy,Home Exercise Program,Joint Mobilizations, Manual Therapy,Patient/ Caregiver Education,Self-Care/ Home Management,Soft Tissue Mobilization,Taping, Therapeutic Activities, Therapeutic Exercises Modalities Cold Pack/Ice Massage,Electric Stimulation,Hot Packs, Traction- Mechanical, Ultrasound Next Visit Focus/Plan Next Note Type Treatment Note Next Visit Plan Review HEP added bird dog/self stms, Next: add IT band stretch, bug, doorway ql stretch. Pt education on proper gait, self care and home exercises. Start core strengthening. Progress POC. POC: Manual traction. Focus on decreasing soft tissue muscle guarding and pain, improving fascial mobility & improving lumbar/L hip mobility and for hip/core/ pelvic stabilization.
--- NOTE | 2021-09-27 09:45 | PT.OTN ---
Current Diagnoses Low back pain, unspecified (09/27/21) Physical Therapy Treatment Note PT-OP-A Visit Information Start: 08/30/21 20:11 Freq: Status: Active Protocol: Document 09/27/21 09:00 SP (Rec: 09/27/21 09:48 SP [id number]) Out-Patient Physical Therapy Visit Information Visit Information Visit Type Treatment Note Visit Start Time 09:00 Visit Stop Time 09:45 Total Visit Minutes 45 Visit Number 5 Number of CLAY MINE CUTTING MACHINE OPERATOR Visits 2 Evaluation Information Evaluation Date 09/05/21 PT-OP-B Current Condition Start: 08/30/21 20:11 Freq: Status: Active Protocol: Document 09/05/21 08:09 LRN (Rec: 09/05/21 12:06 LRN [id number]) Current Condition History of Current Condition Onset Date Few weeks ago. Current Complaints Pn primarily in L LB>buttock> lateral leg into big toe, little in umbilicus History of Current Condition Frequent flared up episodes of back pain that worsens for ~ 1 week. Currently in a stable place in his back. Decades of history of back pain. Always looking to try and improve. Walk/hike daily but very fragile. If turn too fast can have a lot of problems for a week. Must be careful how he sits, moves, bend over, etc. Gets numbness in the legs and into the feet when hurts self. Hopes to be able to strengthen muscle groups to stabilize core. Laser surgery to remove 2 portions of disc and remove bone spurs in the lumbar spine somewhere in [facility] for lumbar region ~ 6yrs ago and restored ability to walk. Accupuncture helped to relax for the hour, Tramadol was very helpful. Prior Treatments and Tests Has had physical therapy and variable treatments. Just came from [facility] and just had EStim and massage . Like the EStim. After surgery in [facility] had therapy ex's, and ES, massage, heat. Developmental History Developmental History Kids age 27, 23 & two 4 yr olds. Couldn't carry first 2 kids. 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 Treatment Goals Patient/Caregiver Goals Learn how to take care of the body and strengthen the core. Make him more resilient to situations and help him to be able to do more with his 4 yr old. Would love to do gardening. 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 Sometimes must ask for help to lift heavy objects and heavy objects putting away above head. Current Functional Impairments (Reported) Functional Limitations- ADL's Difficulty bending over, must be careful picking up children . Can't run Personal Factors Other Personal Factors That May Effect Has 4 yr old twins. Therapy/Recovery Decade long history of back pain and surgeries. PT-OP-C Subjective Start: 08/30/21 20:11 Freq: Status: Active Protocol: Document 09/27/21 09:00 SP (Rec: 09/27/21 09:48 SP [id number]) OP-PT Subjective Patient Comments Patient Comments Pt reports pretty good after last tx, LB not aggrevated upon arrival always there just stiffness today. I hike daily, 9 miles on , 5 miles Thu, 3 miles Th, no pack . PT-OP-G Mobility & Gait Start: 08/30/21 20:11 Freq: Status: Active Protocol: Document 09/05/21 08:09 LRN (Rec: 09/05/21 12:06 LRN [id number]) OP Gait Assessment Gait Gait Assistance Required: Independent Able to Maintain Weight Bearing Status Yes During Gait Assistive Devices Assistive Device None Comments Gait Comments Trendelenburg lean to the R. PT-OP-J Posture/Palpation/Skin Start: 08/30/21 20:11 Freq: Status: Active Protocol: Document 09/05/21 08:09 LRN (Rec: 09/05/21 12:06 LRN [id number]) Posture Evaluation Position Standing L-Spine Posture Increased Lordosis Shoulder Posture (L) Elevated Pelvis Posture Anteriorly Tilted Comments Posture Comments L leg a little atrophy, L lower paraspinals mild atrophy . L foot slightly ER'd Palpation Assessment Location Low Back Palpation Location Decreased tone at L lower paraspinals. PT-OP-K Range of Motion Start: 08/30/21 20:11 Freq: Status: Active Protocol: Document 09/05/21 08:09 LRN (Rec: 09/05/21 12:06 LRN [id number]) Lumbar Spine Range of Motion Lumbar Spine Active Degrees Testing Position Standing Flexion 80 Extension 5 Rotation Left 10 Rotation Right 10 Lateral Flexion Left 10 Lateral Flexion Right 10 ROM Limitations Pain Comments FB: 80 deg's with 60's hip flexion BB: 5 deg's with 5 deg's hip extension. Increased LLE pain with repetitive forward bend. Hip Goniometric Range of Motion Hip Right Passive Testing Position Supine Straight Leg Raise 85 Internal Rotation 20 External Rotation 30 Left Passive Testing Position Supine Straight Leg Raise 60 Internal Rotation 0 External Rotation 65 PT-OP-L Special Tests Start: 08/30/21 20:11 Freq: Status: Active Protocol: Document 09/05/21 08:09 LRN (Rec: 09/05/21 12:06 LRN [id number]) Special Tests Lumbar Spine Special Tests [place] Test Results + bilaterally Straight Leg Raise Test Results 85 R, 60 L Standing Flexion Test Results + Comments LLB/LLE pain Vertical Spine Loading Test Results - Comments No pain, pt went into extension PT-OP-M Strength Start: 08/30/21 20:11 Freq: Status: Active Protocol: Document 09/05/21 08:09 LRN (Rec: 09/05/21 12:06 LRN [id number]) Trunk Strength Trunk Manual Muscle Testing Core Stabilization Lacks stability with hip flex and AB/AD Hip Strength Hip Manual Muscle Testing Right Flexion (L2) 5 Normal Extension (S1) 4 Good Abduction 5 Normal Adduction 5 Normal External Rotation 5 Normal Internal Rotation 3 Fair Left Flexion (L2) 2+ Poor+ Extension (S1) 3- Fair- Abduction 4+ Good+ Adduction 2 Poor External Rotation 3 Fair Internal Rotation 3+ Fair+ PT-OP-Q Treatments Start: 08/30/21 20:11 Freq: Status: Active Protocol: Document 09/27/21 09:00 SP (Rec: 09/27/21 09:48 SP [id number]) Cardio Equipment Bicycle (Upright) Duration (Minutes) 6 Resistance 10 Seat Position 10 Other 83PRMs, 3.12 miles Gym Equipment Therapeutic Ball pelvic tilts Exercise Details f/b/ lateral Ball Size/Color 65cm Body Position Sitting Reps/Duration 4 min Comments cued chest lift, forward posturing over pelvis, challenging L lateral WB into ball with reported weakness ( next tx 75cm tball) FF, HABD ROM/Stretch Ball Size/Color 65cm Body Position Supine Reps/Duration 4 min Comments cued bridge neutral pelvis core fac stability w/ FF and pec stretch HABD ROM Therapeutic Exercises Supine Exercises HS Stretch Supine Exercise Name HEP REviewed: Hamstring/LE neural stretch Side bilateral Equipment Used w/ strap Reps/Minutes 2 x 60 ea Standing Exercises D2 flexion Standing Exercise Name Trial in PT Side bilateral Resistance 4.5 # black med ball Reps/Minutes x10 each direction Comments cued posturing and wt close to body and full into ext w/ rotation chops Standing Exercise Name Trialed in PT Side bilateral Resistance TB #3 Reps/Minutes x15 each side Comments cued for set up and proper form: full ext into rotate opp knee flexion Other Exercises 1/2 knee hip flexor stretch Other Exercise Name trial in PT Side left Equipment Used contact table, pillow under L knee Reps/Minutes 20s x2 Comments cued neutral pelvis, lean forward into R front LE- ant hip stretch Manual Therapy Treatment Soft Tissue Mobilization iliopsoas Body Location L Mobilization Type Sustained Pressure Intensity/Depth Moderate Body Position Hooklying Comments Manual with breath, good LB releases reported Hip Body Location L Glutes, L Piriformis Mobilization Type Cross-Friction,Rolling, Sustained Pressure,Trigger Point Release Intensity/Depth Moderate Body Position Prone Comments w/pillow support under LE Low Back Body Location L QL Mobilization Type Rolling,Sustained Pressure Intensity/Depth Moderate Body Position Prone Comments w/pillow support under LE PT-OP-R Modalities Start: 08/30/21 20:11 Freq: Status: Active Protocol: Document 09/09/21 14:36 NBM (Rec: 09/09/21 18:37 NBM [id number]) Hot Pack/Cold Pack Treatment Cold Pack Location Lumbar and L glute Patient Position Prone Treatment Duration (minutes) 10 Patient Tolerance Good Comments lumbar cold pack PT-OP-T Assessment and Plan Start: 08/30/21 20:11 Freq: Status: Active Protocol: Document 09/27/21 09:00 SP (Rec: 09/27/21 09:48 SP [id number]) Physical Therapy Assessment Goals Three Impairment Strength Short Term Goal (STG) Lift a little more weight STG Duration 10/20/21 Collar Stay Fuser Tender Goal (LTG) Improve core strength. LTG Duration 12/06/21 Two Impairment Decreased mobility due to back L hip/LE pain. Impairment Pt requires ~ 1 week of recovery when he flares up his back. Pt has L LB/buttock pain and sometimes LE/foot pain when reaching outward to do activities. Short Term Goal (STG) Improve pt ability to be more resilient to mobility situations (less recovery time when causing a flare up) STG Duration 10/20/21 Collar Stay Fuser Tender Goal (LTG) Pt will be able to have greater tolerance to reaching away from body and therefore able to do more with his 4 yr olds. LTG Duration 12/06/21 One Impairment Lacks appropriage HEP Short Term Goal (STG) Pt educated in Proper body mechanics for daily activities and possibly be able to help with gardening. STG Duration 09/13/21 (09/13/21: MET GOAL) Collar Stay Fuser Tender Goal (LTG) Pt will be educated in a self care HEP of core/hip mobility and strengthening exercises. (09/13/21: HEP: hip mobility ex's) 09/24/21: Initiated self STMs ball wall, rolling pin, quadruped UE/ LE ext, cat camel. LTG Duration 12/06/21 (09/24/21: Progressed ) Assessment Summary Assessment Pt responded well to manual, mario psoas. End tx shown 1/2 kneel hip flexor stretch ( recheck next tx). Pt wanted to progress more active standing . Intiated chops with mod cuing for trunk alignment, challenged and caused irritation LB and improved post manual psoas release. Physical Therapy Plan Frequency and Duration Frequency of Treatment 2x/Week Plan of Care Start Date 09/05/21 Plan of Care End Date 12/06/21 Therapeutic Interventions Therapeutic Interventions Aquatic Therapy,Home Exercise Program,Joint Mobilizations, Manual Therapy,Patient/ Caregiver Education,Self-Care/ Home Management,Soft Tissue Mobilization,Taping, Therapeutic Activities, Therapeutic Exercises Modalities Cold Pack/Ice Massage,Electric Stimulation,Hot Packs, Traction- Mechanical, Ultrasound Next Visit Focus/Plan Next Note Type Treatment Note Next Visit Plan Review HEP added bird dog/self stms, Next: next tx modify med ball trunk rotation/ TB and STS with resistance, functional strengthening, add IT band stretch, bug, doorway ql stretch. Pt education on proper gait, self care and home exercises. Start core strengthening. Progress POC. POC: Manual traction. Focus on decreasing soft tissue muscle guarding and pain, improving fascial mobility & improving lumbar/L hip mobility and for hip/core/ pelvic stabilization.
--- NOTE | 2021-10-02 09:45 | PT.OTN ---
Current Diagnoses Low back pain, unspecified (10/02/21) Physical Therapy Treatment Note PT-OP-A Visit Information Start: 08/30/21 20:11 Freq: Status: Active Protocol: Document 10/02/21 09:04 SP (Rec: 10/02/21 09:53 SP [id number]) Out-Patient Physical Therapy Visit Information Visit Information Visit Type Treatment Note Visit Start Time 09:04 Visit Stop Time 09:45 Total Visit Minutes 41 Visit Number 6 Number of CAT SCAN TECHNOLOGIST Visits 3 Evaluation Information Evaluation Date 09/05/21 PT-OP-B Current Condition Start: 08/30/21 20:11 Freq: Status: Active Protocol: Document 09/05/21 08:09 LRN (Rec: 09/05/21 12:06 LRN [id number]) Current Condition History of Current Condition Onset Date Few weeks ago. Current Complaints Pn primarily in L LB>buttock> lateral leg into big toe, little in umbilicus History of Current Condition Frequent flared up episodes of back pain that worsens for ~ 1 week. Currently in a stable place in his back. Decades of history of back pain. Always looking to try and improve. Walk/hike daily but very fragile. If turn too fast can have a lot of problems for a week. Must be careful how he sits, moves, bend over, etc. Gets numbness in the legs and into the feet when hurts self. Hopes to be able to strengthen muscle groups to stabilize core. Laser surgery to remove 2 portions of disc and remove bone spurs in the lumbar spine somewhere in [facility] for lumbar region ~ 6yrs ago and restored ability to walk. Accupuncture helped to relax for the hour, Tramadol was very helpful. Prior Treatments and Tests Has had physical therapy and variable treatments. Just came from [facility] and just had EStim and massage . Like the EStim. After surgery in [facility] had therapy ex's, and ES, massage, heat. Developmental History Developmental History Kids age 27, 23 & two 4 yr olds. Couldn't carry first 2 kids. 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 Treatment Goals Patient/Caregiver Goals Learn how to take care of the body and strengthen the core. Make him more resilient to situations and help him to be able to do more with his 4 yr old. Would love to do gardening. 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 Sometimes must ask for help to lift heavy objects and heavy objects putting away above head. Current Functional Impairments (Reported) Functional Limitations- ADL's Difficulty bending over, must be careful picking up children . Can't run Personal Factors Other Personal Factors That May Effect Has 4 yr old twins. Therapy/Recovery Decade long history of back pain and surgeries. PT-OP-C Subjective Start: 08/30/21 20:11 Freq: Status: Active Protocol: Document 10/02/21 09:04 SP (Rec: 10/02/21 09:53 SP [id number]) OP-PT Subjective Patient Comments Patient Comments Pt reports did some play with kids, used their scooters standing on 1 LE and with single leg propel exacerbated anterior L hip. Also lifting them up on playground equipment (4y/o twins) and does irritate back. PT-OP-G Mobility & Gait Start: 08/30/21 20:11 Freq: Status: Active Protocol: Document 09/05/21 08:09 LRN (Rec: 09/05/21 12:06 LRN [id number]) OP Gait Assessment Gait Gait Assistance Required: Independent Able to Maintain Weight Bearing Status Yes During Gait Assistive Devices Assistive Device None Comments Gait Comments Trendelenburg lean to the R. PT-OP-J Posture/Palpation/Skin Start: 08/30/21 20:11 Freq: Status: Active Protocol: Document 09/05/21 08:09 LRN (Rec: 09/05/21 12:06 LRN [id number]) Posture Evaluation Position Standing L-Spine Posture Increased Lordosis Shoulder Posture (L) Elevated Pelvis Posture Anteriorly Tilted Comments Posture Comments L leg a little atrophy, L lower paraspinals mild atrophy . L foot slightly ER'd Palpation Assessment Location Low Back Palpation Location Decreased tone at L lower paraspinals. PT-OP-K Range of Motion Start: 08/30/21 20:11 Freq: Status: Active Protocol: Document 09/05/21 08:09 LRN (Rec: 09/05/21 12:06 LRN [id number]) Lumbar Spine Range of Motion Lumbar Spine Active Degrees Testing Position Standing Flexion 80 Extension 5 Rotation Left 10 Rotation Right 10 Lateral Flexion Left 10 Lateral Flexion Right 10 ROM Limitations Pain Comments FB: 80 deg's with 60's hip flexion BB: 5 deg's with 5 deg's hip extension. Increased LLE pain with repetitive forward bend. Hip Goniometric Range of Motion Hip Right Passive Testing Position Supine Straight Leg Raise 85 Internal Rotation 20 External Rotation 30 Left Passive Testing Position Supine Straight Leg Raise 60 Internal Rotation 0 External Rotation 65 PT-OP-L Special Tests Start: 08/30/21 20:11 Freq: Status: Active Protocol: Document 09/05/21 08:09 LRN (Rec: 09/05/21 12:06 LRN [id number]) Special Tests Lumbar Spine Special Tests [place] Test Results + bilaterally Straight Leg Raise Test Results 85 R, 60 L Standing Flexion Test Results + Comments LLB/LLE pain Vertical Spine Loading Test Results - Comments No pain, pt went into extension PT-OP-M Strength Start: 08/30/21 20:11 Freq: Status: Active Protocol: Document 09/05/21 08:09 LRN (Rec: 09/05/21 12:06 LRN [id number]) Trunk Strength Trunk Manual Muscle Testing Core Stabilization Lacks stability with hip flex and AB/AD Hip Strength Hip Manual Muscle Testing Right Flexion (L2) 5 Normal Extension (S1) 4 Good Abduction 5 Normal Adduction 5 Normal External Rotation 5 Normal Internal Rotation 3 Fair Left Flexion (L2) 2+ Poor+ Extension (S1) 3- Fair- Abduction 4+ Good+ Adduction 2 Poor External Rotation 3 Fair Internal Rotation 3+ Fair+ PT-OP-Q Treatments Start: 08/30/21 20:11 Freq: Status: Active Protocol: Document 10/02/21 09:04 SP (Rec: 10/02/21 09:53 SP [id number]) Therapeutic Exercises Supine Exercises HS Stretch Supine Exercise Name HEP REviewed: Hamstring/LE neural stretch Side bilateral Equipment Used w/ strap Reps/Minutes 2 x 60 ea Piriformis Stretch Supine Exercise Name Figure 4 stretch - added to HEP Side bilateral Reps/Minutes 2 x 60 ea Comments long towel instead of hands to avoid thoracic/cervical flexion Standing Exercises downward dog Standing Exercise Name added toHEP: HS and calf stretch Reps/Minutes 30 x2 Comments good feedback to toe raises Standing Exercise Name added to HEP Equipment Used back to wall Comments active calf stretch/ ROM LS rotation stretch Standing Exercise Name reviewed rotation Side bilateral Reps/Minutes 5 reps x15 sec hold Comments good form painfree and for use ontrials when back tightens up trunk wt shift rotation Standing Exercise Name LS rotation w/ wt shift for mechanics lifting boxes moving Resistance 10# in basket then med ball Equipment Used added to HEP Reps/Minutes 2x5 Comments lifting off floor and turn to place, Gym med ball chops Standing Exercise Name added to HEP Side bilateral Resistance 10 # med ball Reps/Minutes x5 each side Comments cued for set up and proper form: full ext into rotate opp knee flexion Other Exercises 1/2 knee hip flexor stretch Other Exercise Name recheck next tx Side left Equipment Used contact table, pillow under L knee Reps/Minutes 20s x2 Comments cued neutral pelvis, lean forward into R front LE- ant hip stretch Quadruped Other Exercise Name cat camel, UE/LE Ext- added HEP Side bilateral Reps/Minutes 5 reps Comments g Self-Care/Home Management Treatment Education Patient Education Body Mechanics,Home Exercise Program,Posture Other Education Ed Mechanics lifting 10# in box off floor assimulate moving, picking up kids, gardening. added toe raises, down dog stretch- posterior chain stretching, med ball LS rotation PT-OP-R Modalities Start: 08/30/21 20:11 Freq: Status: Active Protocol: Document 09/09/21 14:36 NBM (Rec: 09/09/21 18:37 NBM [id number]) Hot Pack/Cold Pack Treatment Cold Pack Location Lumbar and L glute Patient Position Prone Treatment Duration (minutes) 10 Patient Tolerance Good Comments lumbar cold pack PT-OP-T Assessment and Plan Start: 08/30/21 20:11 Freq: Status: Active Protocol: Document 10/02/21 09:04 SP (Rec: 10/02/21 09:53 SP [id number]) Physical Therapy Assessment Goals Three Impairment Strength Short Term Goal (STG) Lift a little more weight STG Duration 10/20/21 Assisted Goal (LTG) Improve core strength. LTG Duration 12/06/21 Two Impairment Decreased mobility due to back L hip/LE pain. Impairment Pt requires ~ 1 week of recovery when he flares up his back. Pt has L LB/buttock pain and sometimes LE/foot pain when reaching outward to do activities. Short Term Goal (STG) Improve pt ability to be more resilient to mobility situations (less recovery time when causing a flare up) 10/02/21: progressing: states getting more resilent with recovery, better self aware of core fac to support LBP. STG Duration 10/20/21 progressin10/02/21 Assisted Goal (LTG) Pt will be able to have greater tolerance to reaching away from body and therefore able to do more with his 4 yr olds. 10/02/21: progressing: getting better is focused on positioning pulling out water hose and reaching in car to give core support. LTG Duration 12/06/21 progressin10/02/21 One Impairment Lacks appropriage HEP Short Term Goal (STG) Pt educated in Proper body mechanics for daily activities and possibly be able to help with gardening. STG Duration 09/13/21 (09/13/21: MET GOAL) Assisted Goal (LTG) Pt will be educated in a self care HEP of core/hip mobility and strengthening exercises. (09/13/21: HEP: hip mobility ex's) 09/24/21: Initiated self STMs ball wall, rolling pin, quadruped UE/ LE ext, cat camel. 10/02/21: added downward dog, toe raises back to wall, LS rotation. LTG Duration 12/06/21 (10/02/21: Progressed) Assessment Summary Assessment Pt rseponded well to manual, stretching anterior and posterior chain and core functional strengthening to improve functional mobility. He reports does well but sometimes does something and takes time to come back from. IMproved chops and LS rotation this tx with core stability/ flexibility with just weakness in UEs with end range OH. 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 Physical Therapy Plan Frequency and Duration Frequency of Treatment 2x/Week Plan of Care Start Date 09/05/21 Plan of Care End Date 12/06/21 Therapeutic Interventions Therapeutic Interventions Aquatic Therapy,Home Exercise Program,Joint Mobilizations, Manual Therapy,Patient/ Caregiver Education,Self-Care/ Home Management,Soft Tissue Mobilization,Taping, Therapeutic Activities, Therapeutic Exercises Modalities Cold Pack/Ice Massage,Electric Stimulation,Hot Packs, Traction- Mechanical, Ultrasound Next Visit Focus/Plan Next Note Type Treatment Note Next Visit Plan Review down dog, DF strengthening, hip flexor stretching with functional core and L hip strengthenging. Next: next tx add bug, doorway ITB and QL stretch. Pt education on proper gait, self care and home exercises. Start core strengthening. Progress POC. POC: Manual traction. Focus on decreasing soft tissue muscle guarding and pain, improving fascial mobility & improving lumbar/L hip mobility and for hip/core/ pelvic stabilization.
--- NOTE | 2021-10-08 09:00 | PT.OTN ---
Current Diagnoses Low back pain, unspecified (10/08/21) Physical Therapy Treatment Note PT-OP-A Visit Information Start: 08/30/21 20:11 Freq: Status: Active Protocol: Document 10/08/21 08:19 SP (Rec: 10/08/21 09:04 SP [id number]) Out-Patient Physical Therapy Visit Information Visit Information Visit Type Treatment Note Visit Start Time 08:19 Visit Stop Time 09:00 Total Visit Minutes 41 Visit Number 7 Number of BRAIN SURGEON Visits 4 Evaluation Information Evaluation Date 09/05/21 PT-OP-B Current Condition Start: 08/30/21 20:11 Freq: Status: Active Protocol: Document 09/05/21 08:09 LRN (Rec: 09/05/21 12:06 LRN [id number]) Current Condition History of Current Condition Onset Date Few weeks ago. Current Complaints Pn primarily in L LB>buttock> lateral leg into big toe, little in umbilicus History of Current Condition Frequent flared up episodes of back pain that worsens for ~ 1 week. Currently in a stable place in his back. Decades of history of back pain. Always looking to try and improve. Walk/hike daily but very fragile. If turn too fast can have a lot of problems for a week. Must be careful how he sits, moves, bend over, etc. Gets numbness in the legs and into the feet when hurts self. Hopes to be able to strengthen muscle groups to stabilize core. Laser surgery to remove 2 portions of disc and remove bone spurs in the lumbar spine somewhere in [facility] for lumbar region ~ 6yrs ago and restored ability to walk. Accupuncture helped to relax for the hour, Tramadol was very helpful. Prior Treatments and Tests Has had physical therapy and variable treatments. Just came from [facility] and just had EStim and massage . Like the EStim. After surgery in [facility] had therapy ex's, and ES, massage, heat. Developmental History Developmental History Kids age 27, 23 & two 4 yr olds. Couldn't carry first 2 kids. 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 Treatment Goals Patient/Caregiver Goals Learn how to take care of the body and strengthen the core. Make him more resilient to situations and help him to be able to do more with his 4 yr old. Would love to do gardening. 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 Sometimes must ask for help to lift heavy objects and heavy objects putting away above head. Current Functional Impairments (Reported) Functional Limitations- ADL's Difficulty bending over, must be careful picking up children . Can't run Personal Factors Other Personal Factors That May Effect Has 4 yr old twins. Therapy/Recovery Decade long history of back pain and surgeries. PT-OP-C Subjective Start: 08/30/21 20:11 Freq: Status: Active Protocol: Document 10/08/21 08:19 SP (Rec: 10/08/21 09:04 SP [id number]) OP-PT Subjective Patient Comments Patient Comments Pt stated hiking daily low end trails about 3 miles about 1. 25 hrs. Compliant with HEP with what his younger kids will allow him without jumping on him due to in transition space moving. Was at older son 't wedding recently wearing tuxedo shoes and stood about 8 hrs, was painful in LB/ stiffness and couldn't dance, wasn't as bad as anticipated though. PT-OP-G Mobility & Gait Start: 08/30/21 20:11 Freq: Status: Active Protocol: Document 09/05/21 08:09 LRN (Rec: 09/05/21 12:06 LRN [id number]) OP Gait Assessment Gait Gait Assistance Required: Independent Able to Maintain Weight Bearing Status Yes During Gait Assistive Devices Assistive Device None Comments Gait Comments Trendelenburg lean to the R. PT-OP-J Posture/Palpation/Skin Start: 08/30/21 20:11 Freq: Status: Active Protocol: Document 09/05/21 08:09 LRN (Rec: 09/05/21 12:06 LRN [id number]) Posture Evaluation Position Standing L-Spine Posture Increased Lordosis Shoulder Posture (L) Elevated Pelvis Posture Anteriorly Tilted Comments Posture Comments L leg a little atrophy, L lower paraspinals mild atrophy . L foot slightly ER'd Palpation Assessment Location Low Back Palpation Location Decreased tone at L lower paraspinals. PT-OP-K Range of Motion Start: 08/30/21 20:11 Freq: Status: Active Protocol: Document 09/05/21 08:09 LRN (Rec: 09/05/21 12:06 LRN [id number]) Lumbar Spine Range of Motion Lumbar Spine Active Degrees Testing Position Standing Flexion 80 Extension 5 Rotation Left 10 Rotation Right 10 Lateral Flexion Left 10 Lateral Flexion Right 10 ROM Limitations Pain Comments FB: 80 deg's with 60's hip flexion BB: 5 deg's with 5 deg's hip extension. Increased LLE pain with repetitive forward bend. Hip Goniometric Range of Motion Hip Right Passive Testing Position Supine Straight Leg Raise 85 Internal Rotation 20 External Rotation 30 Left Passive Testing Position Supine Straight Leg Raise 60 Internal Rotation 0 External Rotation 65 PT-OP-L Special Tests Start: 08/30/21 20:11 Freq: Status: Active Protocol: Document 09/05/21 08:09 LRN (Rec: 09/05/21 12:06 LRN [id number]) Special Tests Lumbar Spine Special Tests [place] Test Results + bilaterally Straight Leg Raise Test Results 85 R, 60 L Standing Flexion Test Results + Comments LLB/LLE pain Vertical Spine Loading Test Results - Comments No pain, pt went into extension PT-OP-M Strength Start: 08/30/21 20:11 Freq: Status: Active Protocol: Document 09/05/21 08:09 LRN (Rec: 09/05/21 12:06 LRN [id number]) Trunk Strength Trunk Manual Muscle Testing Core Stabilization Lacks stability with hip flex and AB/AD Hip Strength Hip Manual Muscle Testing Right Flexion (L2) 5 Normal Extension (S1) 4 Good Abduction 5 Normal Adduction 5 Normal External Rotation 5 Normal Internal Rotation 3 Fair Left Flexion (L2) 2+ Poor+ Extension (S1) 3- Fair- Abduction 4+ Good+ Adduction 2 Poor External Rotation 3 Fair Internal Rotation 3+ Fair+ PT-OP-Q Treatments Start: 08/30/21 20:11 Freq: Status: Active Protocol: Document 10/08/21 08:19 SP (Rec: 10/08/21 09:04 SP [id number]) Cardio Equipment Bicycle (Upright) Duration (Minutes) 6 Resistance 10 Seat Position 6 Other 86 PRMs, 3.09miles Therapeutic Exercises Supine Exercises LTR Supine Exercise Name HEP reviewed : Lower trunk rotation Side bilateral Equipment Used Green TBall Reps/Minutes x10 ea HS Stretch Supine Exercise Name HEP REviewed: Hamstring/LE neural stretch Side bilateral Resistance pillow under head Equipment Used grasp behind thigh Reps/Minutes 2 x 60 ea Piriformis Stretch Supine Exercise Name - reviewed HEP Side bilateral Reps/Minutes 2 x 60 ea Comments long towel instead of hands to avoid thoracic/cervical flexion SKTC Supine Exercise Name reviewed HEP Side bilateral Equipment Used pillow under head Reps/Minutes 2 x 60 ea Prone Exercises Press-up Reps/Minutes x3 Comments cued TA awareness, tolerant range for anterior trunk stretch Sidelying Exercises Open Book Stretch Sidelying Exercise Name Open book stretch Side bilateral Reps/Minutes x10 ea Comments hold in open for a few breaths Sitting Exercises self STMs Sitting Exercise Name HS, calf, glut, TS ext w/ foam roller; rolling Side bilateral Resistance foam roller and rolling pin Comments good performance post therapist demonstration Standing Exercises downward dog Standing Exercise Name reviewed HEP: HS and calf stretch Reps/Minutes 30 x2 Comments challenging today Other Exercises 1/2 knee hip flexor stretch Other Exercise Name hep reviewed Side left Equipment Used contact table, pillow under L knee Reps/Minutes 20s x2 Comments good feedback stretch- deminished L upper glut pain intially felt Quadruped Other Exercise Name cat camel, UE/LE Ext- reviewed HEP Side bilateral Reps/Minutes 5 reps Comments slow progress ROM tolerant stab Manual Therapy Treatment Soft Tissue Mobilization iliopsoas Body Location L Mobilization Type Sustained Pressure Intensity/Depth Moderate Body Position Hooklying Comments Manual with breath, good LB releases reported PT-OP-R Modalities Start: 08/30/21 20:11 Freq: Status: Active Protocol: Document 09/09/21 14:36 NBM (Rec: 09/09/21 18:37 NBM [id number]) Hot Pack/Cold Pack Treatment Cold Pack Location Lumbar and L glute Patient Position Prone Treatment Duration (minutes) 10 Patient Tolerance Good Comments lumbar cold pack PT-OP-T Assessment and Plan Start: 08/30/21 20:11 Freq: Status: Active Protocol: Document 10/08/21 08:19 SP (Rec: 10/08/21 09:04 SP [id number]) Physical Therapy Assessment Goals Three Impairment Strength Short Term Goal (STG) Lift a little more weight STG Duration 10/20/21 Paper Coating Supervisor Goal (LTG) Improve core strength. LTG Duration 12/06/21 Two Impairment Decreased mobility due to back L hip/LE pain. Impairment Pt requires ~ 1 week of recovery when he flares up his back. Pt has L LB/buttock pain and sometimes LE/foot pain when reaching outward to do activities. Short Term Goal (STG) Improve pt ability to be more resilient to mobility situations (less recovery time when causing a flare up) 10/02/21: progressing: states getting more resilent with recovery, better self aware of core fac to support LBP. STG Duration 10/20/21 progressin10/02/21 Paper Coating Supervisor Goal (LTG) Pt will be able to have greater tolerance to reaching away from body and therefore able to do more with his 4 yr olds. 10/02/21: progressing: getting better is focused on positioning pulling out water hose and reaching in car to give core support. LTG Duration 12/06/21 progressin10/02/21 One Impairment Lacks appropriage HEP Short Term Goal (STG) Pt educated in Proper body mechanics for daily activities and possibly be able to help with gardening. STG Duration 09/13/21 (09/13/21: MET GOAL) Penitentiary Goal (LTG) Pt will be educated in a self care HEP of core/hip mobility and strengthening exercises. (09/13/21: HEP: hip mobility ex's) 09/24/21: Initiated self STMs ball wall, rolling pin, quadruped UE/ LE ext, cat camel. 10/02/21: added downward dog, toe raises back to wall, LS rotation. LTG Duration 12/06/21 (10/02/21: Progressed) Assessment Summary Assessment Pt improved hip flexor mobility into trunk extension and lumbar tension reported when arrived post manual, stretching and initiated foam and rolling stick for self STM options. I feel more open now and able to stand more upright. Physical Therapy Plan Frequency and Duration Frequency of Treatment 2x/Week Plan of Care Start Date 09/05/21 Plan of Care End Date 12/06/21 Therapeutic Interventions Therapeutic Interventions Aquatic Therapy,Home Exercise Program,Joint Mobilizations, Manual Therapy,Patient/ Caregiver Education,Self-Care/ Home Management,Soft Tissue Mobilization,Taping, Therapeutic Activities, Therapeutic Exercises Modalities Cold Pack/Ice Massage,Electric Stimulation,Hot Packs, Traction- Mechanical, Ultrasound Next Visit Focus/Plan Next Note Type Treatment Note Next Visit Plan Review down dog, DF strengthening, hip flexor stretching with functional core and L hip strengthenging. Next: next tx add bug, doorway ITB and QL stretch. Pt education on proper gait, self care and home exercises. Start core strengthening. Progress POC. POC: Manual traction. Focus on decreasing soft tissue muscle guarding and pain, improving fascial mobility & improving lumbar/L hip mobility and for hip/core/ pelvic stabilization.
--- NOTE | 2021-10-14 15:31 | PT.OTN ---
Current Diagnoses Low back pain, unspecified (10/14/21) Physical Therapy Treatment Note PT-OP-A Visit Information Start: 08/30/21 20:11 Freq: Status: Active Protocol: Document 10/14/21 14:37 LRN (Rec: 10/14/21 15:20 LRN [id number]) Out-Patient Physical Therapy Visit Information Visit Information Visit Type Treatment Note Visit Start Time 14:37 Visit Stop Time 15:19 Total Visit Minutes 42 Visit Number 8 Evaluation Information Evaluation Date 09/05/21 PT-OP-B Current Condition Start: 08/30/21 20:11 Freq: Status: Active Protocol: Document 09/05/21 08:09 LRN (Rec: 09/05/21 12:06 LRN [id number]) Current Condition History of Current Condition Onset Date Few weeks ago. Current Complaints Pn primarily in L LB>buttock> lateral leg into big toe, little in umbilicus History of Current Condition Frequent flared up episodes of back pain that worsens for ~ 1 week. Currently in a stable place in his back. Decades of history of back pain. Always looking to try and improve. Walk/hike daily but very fragile. If turn too fast can have a lot of problems for a week. Must be careful how he sits, moves, bend over, etc. Gets numbness in the legs and into the feet when hurts self. Hopes to be able to strengthen muscle groups to stabilize core. Laser surgery to remove 2 portions of disc and remove bone spurs in the lumbar spine somewhere in [facility] for lumbar region ~ 6yrs ago and restored ability to walk. Accupuncture helped to relax for the hour, Tramadol was very helpful. Prior Treatments and Tests Has had physical therapy and variable treatments. Just came from [place] and just had EStim and massage . Like the EStim. After surgery in [facility] had therapy ex's, and ES, massage, heat. Developmental History Developmental History Kids age 27, 23 & two 4 yr olds. Couldn't carry first 2 kids. 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 Treatment Goals Patient/Caregiver Goals Learn how to take care of the body and strengthen the core. Make him more resilient to situations and help him to be able to do more with his 4 yr old. Would love to do gardening. 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 Sometimes must ask for help to lift heavy objects and heavy objects putting away above head. Current Functional Impairments (Reported) Functional Limitations- ADL's Difficulty bending over, must be careful picking up children . Can't run Personal Factors Other Personal Factors That May Effect Has 4 yr old twins. Therapy/Recovery Decade long history of back pain and surgeries. PT-OP-C Subjective Start: 08/30/21 20:11 Freq: Status: Active Protocol: Document 10/14/21 14:37 LRN (Rec: 10/14/21 15:20 LRN [id number]) OP-PT Subjective Patient Comments Patient Comments Went to son's wedding and stood in dress shoes ~8hrs and drove roundtrip 5 hrs, both equally bad. Doing well, must be careful lifting heavy boxes, usually has to remove 1 /2 box. States his activity level and endurance is good. Just strength is a problem. States able to walk up to [place] and back and tries not to put too much pressure on L leg. Was trying to teach kids to ride a bike and found he couldn't do it. States he starting to increase trunk mobility and needs strengthening. Pain/Tight L SIJ/Hip/LB. PT-OP-G Mobility & Gait Start: 08/30/21 20:11 Freq: Status: Active Protocol: Document 09/05/21 08:09 LRN (Rec: 09/05/21 12:06 LRN [id number]) OP Gait Assessment Gait Gait Assistance Required: Independent Able to Maintain Weight Bearing Status Yes During Gait Assistive Devices Assistive Device None Comments Gait Comments Trendelenburg lean to the R. PT-OP-J Posture/Palpation/Skin Start: 08/30/21 20:11 Freq: Status: Active Protocol: Document 09/05/21 08:09 LRN (Rec: 09/05/21 12:06 LRN [id number]) Posture Evaluation Position Standing L-Spine Posture Increased Lordosis Shoulder Posture (L) Elevated Pelvis Posture Anteriorly Tilted Comments Posture Comments L leg a little atrophy, L lower paraspinals mild atrophy . L foot slightly ER'd Palpation Assessment Location Low Back Palpation Location Decreased tone at L lower paraspinals. PT-OP-K Range of Motion Start: 08/30/21 20:11 Freq: Status: Active Protocol: Document 09/05/21 08:09 LRN (Rec: 09/05/21 12:06 LRN [id number]) Lumbar Spine Range of Motion Lumbar Spine Active Degrees Testing Position Standing Flexion 80 Extension 5 Rotation Left 10 Rotation Right 10 Lateral Flexion Left 10 Lateral Flexion Right 10 ROM Limitations Pain Comments FB: 80 deg's with 60's hip flexion BB: 5 deg's with 5 deg's hip extension. Increased LLE pain with repetitive forward bend. Hip Goniometric Range of Motion Hip Right Passive Testing Position Supine Straight Leg Raise 85 Internal Rotation 20 External Rotation 30 Left Passive Testing Position Supine Straight Leg Raise 60 Internal Rotation 0 External Rotation 65 PT-OP-L Special Tests Start: 08/30/21 20:11 Freq: Status: Active Protocol: Document 09/05/21 08:09 LRN (Rec: 09/05/21 12:06 LRN [id number]) Special Tests Lumbar Spine Special Tests [place] Test Results + bilaterally Straight Leg Raise Test Results 85 R, 60 L Standing Flexion Test Results + Comments LLB/LLE pain Vertical Spine Loading Test Results - Comments No pain, pt went into extension PT-OP-M Strength Start: 08/30/21 20:11 Freq: Status: Active Protocol: Document 09/05/21 08:09 LRN (Rec: 09/05/21 12:06 LRN [id number]) Trunk Strength Trunk Manual Muscle Testing Core Stabilization Lacks stability with hip flex and AB/AD Hip Strength Hip Manual Muscle Testing Right Flexion (L2) 5 Normal Extension (S1) 4 Good Abduction 5 Normal Adduction 5 Normal External Rotation 5 Normal Internal Rotation 3 Fair Left Flexion (L2) 2+ Poor+ Extension (S1) 3- Fair- Abduction 4+ Good+ Adduction 2 Poor External Rotation 3 Fair Internal Rotation 3+ Fair+ PT-OP-Q Treatments Start: 08/30/21 20:11 Freq: Status: Active Protocol: Document 10/14/21 14:37 LRN (Rec: 10/14/21 15:20 LRN [id number]) Cardio Equipment Bicycle (Upright) Duration (Minutes) 6 Resistance 4>6 Seat Position 10 Other 88>90 rpm Therapeutic Exercises Supine Exercises Bug Supine Exercise Name Bug: Arms towards ceiling: lift opp knee/drop opp hand Side bilateral Reps/Minutes 5x LTR Supine Exercise Name Lower trunk rotation - HEP Side bilateral Equipment Used Green TBall Reps/Minutes x10 ea Comments Cuing to not shift feet and equally stretch. HS Stretch Supine Exercise Name Hamstring/LE neural stretch - HEP Side bilateral Resistance pillow under head Equipment Used grasp behind thigh Reps/Minutes 2 x 60 ea Piriformis Stretch Supine Exercise Name Piriformis - HEP Side bilateral Reps/Minutes 2 x 60 ea Comments long towel instead of hands to avoid thoracic/cervical flexion SKTC Supine Exercise Name SKTC - HEP Side bilateral Equipment Used pillow under head Reps/Minutes 2 x 60 ea Sidelying Exercises Open Book Stretch Sidelying Exercise Name Open book stretch Side bilateral Reps/Minutes x10 ea Comments Cuing to not shift feet and equally stretch. Standing Exercises downward dog Standing Exercise Name reviewed HEP: HS and calf stretch Reps/Minutes 10 x5 Comments Much cuing needed for proper positioning; pt not able to hold 30 toe raises Standing Exercise Name Toe raises (DF) Equipment Used back to wall Reps/Minutes 10SH x 8 Comments active calf stretch/ ROM Other Exercises 1/2 knee hip flexor stretch Other Exercise Name 1/2 knee hip flexor stretch Side bilateral Equipment Used contact table, pillow under L knee Reps/Minutes 20s x2 Comments good feedback stretch- diminished L upper glut pain initially felt Quadruped Other Exercise Name cat camel, UE/LE Ext - HEP Side bilateral Reps/Minutes 10SH x 5 reps Comments slow progress ROM tolerant stab PT-OP-R Modalities Start: 08/30/21 20:11 Freq: Status: Active Protocol: Document 09/09/21 14:36 NBM (Rec: 09/09/21 18:37 NB [id number]) Hot Pack/Cold Pack Treatment Cold Pack Location Lumbar and L glute Patient Position Prone Treatment Duration (minutes) 10 Patient Tolerance Good Comments lumbar cold pack PT-OP-T Assessment and Plan Start: 08/30/21 20:11 Freq: Status: Active Protocol: Document 10/14/21 14:37 LRN (Rec: 10/14/21 15:20 LRN [id number]) Physical Therapy Assessment Goals Three Impairment Strength Short Term Goal (STG) Lift a little more weight STG Duration 10/20/21 Custodial Goal (LTG) Improve core strength. LTG Duration 12/06/21 Two Impairment Decreased mobility due to back L hip/LE pain. Impairment Pt requires ~ 1 week of recovery when he flares up his back. Pt has L LB/buttock pain and sometimes LE/foot pain when reaching outward to do activities. Short Term Goal (STG) Improve pt ability to be more resilient to mobility situations (less recovery time when causing a flare up) 10/02/21: progressing: states getting more resilent with recovery, better self aware of core fac to support LBP. STG Duration 10/20/21 progressin10/02/21 Custodial Goal (LTG) Pt will be able to have greater tolerance to reaching away from body and therefore able to do more with his 4 yr olds. 10/02/21: progressing: getting better is focused on positioning pulling out water hose and reaching in car to give core support. LTG Duration 12/06/21 progressin10/02/21 One Impairment Lacks appropriage HEP Short Term Goal (STG) Pt educated in Proper body mechanics for daily activities and possibly be able to help with gardening. STG Duration 09/13/21 (09/13/21: MET GOAL) Custodial Goal (LTG) Pt will be educated in a self care HEP of core/hip mobility and strengthening exercises. (09/13/21: HEP: hip mobility ex's) 09/24/21: Initiated self STMs ball wall, rolling pin, quadruped UE/ LE ext, cat camel. 10/02/21: added downward dog, toe raises back to wall, LS rotation. LTG Duration 12/06/21 (10/02/21: Progressed) Assessment Summary Assessment Pt shows fair stability with 4pt arm/opp leg lifts; he has increased rotation sway. Pt needed review of Down Dog and ankle DF strengthening. Fair tolerance to added treatment of core strengthening of Bug exercise. Physical Therapy Plan Frequency and Duration Frequency of Treatment 2x/Week Plan of Care Start Date 09/05/21 Plan of Care End Date 12/06/21 Next Visit Focus/Plan Next Note Type Treatment Note Next Visit Plan Re-review downward dog & DF strengthening, Continue hip flexor stretching with functional core and L hip strengthening. Next: Progress stab for bug ex for HEP; Next tx add doorway ITB and QL and manual Iliopsoas stretch. Pt education on proper gait, self care and home exercises. Progress core strengthening. Manual traction. POC: Focus on core/pelvic/hip stabilization and improve L hip mobility & fascial mobility lumbar/L hip. As needed, decrease soft tissue muscle guarding and pain.
--- NOTE | 2021-10-17 13:00 | PT.OTN ---
Current Diagnoses Low back pain, unspecified (10/17/21) Physical Therapy Treatment Note PT-OP-A Visit Information Start: 08/30/21 20:11 Freq: Status: Active Protocol: Document 10/17/21 12:18 SP (Rec: 10/17/21 13:01 SP [id number]) Out-Patient Physical Therapy Visit Information Visit Information Visit Type Treatment Note Visit Start Time 12:18 Visit Stop Time 13:00 Total Visit Minutes 42 Visit Number 9 Number of SEWER CONNECTOR Visits 1 PT-OP-B Current Condition Start: 08/30/21 20:11 Freq: Status: Active Protocol: Document 09/05/21 08:09 LRN (Rec: 09/05/21 12:06 LRN [id number]) Current Condition History of Current Condition Onset Date Few weeks ago. Current Complaints Pn primarily in L LB>buttock> lateral leg into big toe, little in umbilicus History of Current Condition Frequent flared up episodes of back pain that worsens for ~ 1 week. Currently in a stable place in his back. Decades of history of back pain. Always looking to try and improve. Walk/hike daily but very fragile. If turn too fast can have a lot of problems for a week. Must be careful how he sits, moves, bend over, etc. Gets numbness in the legs and into the feet when hurts self. Hopes to be able to strengthen muscle groups to stabilize core. Laser surgery to remove 2 portions of disc and remove bone spurs in the lumbar spine somewhere in [facility] for lumbar region ~ 6yrs ago and restored ability to walk. Accupuncture helped to relax for the hour, Tramadol was very helpful. Prior Treatments and Tests Has had physical therapy and variable treatments. Just came from [facility] and just had EStim and massage . Like the EStim. After surgery in [facility] had therapy ex's, and ES, massage, heat. Developmental History Developmental History Kids age 27, 23 & two 4 yr olds. Couldn't carry first 2 kids. 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 Treatment Goals Patient/Caregiver Goals Learn how to take care of the body and strengthen the core. Make him more resilient to situations and help him to be able to do more with his 4 yr old. Would love to do gardening. 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 Sometimes must ask for help to lift heavy objects and heavy objects putting away above head. Current Functional Impairments (Reported) Functional Limitations- ADL's Difficulty bending over, must be careful picking up children . Can't run Personal Factors Other Personal Factors That May Effect Has 4 yr old twins. Therapy/Recovery Decade long history of back pain and surgeries. PT-OP-C Subjective Start: 08/30/21 20:11 Freq: Status: Active Protocol: Document 10/17/21 12:18 SP (Rec: 10/17/21 13:01 SP [id number]) OP-PT Subjective Patient Comments Patient Comments Pt stated biked for 45 min and 1 hr hiking. He stated tried some of his sisters exercises she's doing and wondering if squats caused his R hip pain that extended down ITB never experienced but after did above activity and felt better . He stated his endurance is good and notices his HR is lower and not needing work as hard. PT-OP-G Mobility & Gait Start: 08/30/21 20:11 Freq: Status: Active Protocol: Document 09/05/21 08:09 LRN (Rec: 09/05/21 12:06 LRN [id number]) OP Gait Assessment Gait Gait Assistance Required: Independent Able to Maintain Weight Bearing Status Yes During Gait Assistive Devices Assistive Device None Comments Gait Comments Trendelenburg lean to the R. PT-OP-J Posture/Palpation/Skin Start: 08/30/21 20:11 Freq: Status: Active Protocol: Document 09/05/21 08:09 LRN (Rec: 09/05/21 12:06 LRN [id number]) Posture Evaluation Position Standing L-Spine Posture Increased Lordosis Shoulder Posture (L) Elevated Pelvis Posture Anteriorly Tilted Comments Posture Comments L leg a little atrophy, L lower paraspinals mild atrophy . L foot slightly ER'd Palpation Assessment Location Low Back Palpation Location Decreased tone at L lower paraspinals. PT-OP-K Range of Motion Start: 08/30/21 20:11 Freq: Status: Active Protocol: Document 09/05/21 08:09 LRN (Rec: 09/05/21 12:06 LRN [id number]) Lumbar Spine Range of Motion Lumbar Spine Active Degrees Testing Position Standing Flexion 80 Extension 5 Rotation Left 10 Rotation Right 10 Lateral Flexion Left 10 Lateral Flexion Right 10 ROM Limitations Pain Comments FB: 80 deg's with 60's hip flexion BB: 5 deg's with 5 deg's hip extension. Increased LLE pain with repetitive forward bend. Hip Goniometric Range of Motion Hip Right Passive Testing Position Supine Straight Leg Raise 85 Internal Rotation 20 External Rotation 30 Left Passive Testing Position Supine Straight Leg Raise 60 Internal Rotation 0 External Rotation 65 PT-OP-L Special Tests Start: 08/30/21 20:11 Freq: Status: Active Protocol: Document 09/05/21 08:09 LRN (Rec: 09/05/21 12:06 LRN [id number]) Special Tests Lumbar Spine Special Tests [place] Test Results + bilaterally Straight Leg Raise Test Results 85 R, 60 L Standing Flexion Test Results + Comments LLB/LLE pain Vertical Spine Loading Test Results - Comments No pain, pt went into extension PT-OP-M Strength Start: 08/30/21 20:11 Freq: Status: Active Protocol: Document 09/05/21 08:09 LRN (Rec: 09/05/21 12:06 LRN [id number]) Trunk Strength Trunk Manual Muscle Testing Core Stabilization Lacks stability with hip flex and AB/AD Hip Strength Hip Manual Muscle Testing Right Flexion (L2) 5 Normal Extension (S1) 4 Good Abduction 5 Normal Adduction 5 Normal External Rotation 5 Normal Internal Rotation 3 Fair Left Flexion (L2) 2+ Poor+ Extension (S1) 3- Fair- Abduction 4+ Good+ Adduction 2 Poor External Rotation 3 Fair Internal Rotation 3+ Fair+ PT-OP-Q Treatments Start: 08/30/21 20:11 Freq: Status: Active Protocol: Document 10/17/21 12:18 SP (Rec: 10/17/21 13:01 SP [id number]) Cardio Equipment Bicycle (Upright) Duration (Minutes) 7 Resistance 6 Seat Position 10 Other 90 rpm, 3.80 miles Therapeutic Exercises Supine Exercises Bug Supine Exercise Name Bug: UE/ LE ext Side bilateral Reps/Minutes 3x5 reps Comments cued slow pacing and tolerant range ext to allow no LB/ hip recruitment LTR Supine Exercise Name Lower trunk rotation - HEP Side bilateral Equipment Used Green TBall Reps/Minutes x10 ea Comments Cuing to not shift feet and equally stretch. Piriformis Stretch Supine Exercise Name Piriformis - HEP Side bilateral Reps/Minutes 2 x 60 ea Comments long towel instead of hands to avoid thoracic/cervical flexion Prone Exercises Plank Prone Exercise Name elbows off feet, reviewed self HEP started back up Resistance * Try orange ball under pelvis next tx. Reps/Minutes not timed, approx 20s Comments cued glut and PPT fac to allow pelvis support elevated alignment Standing Exercises downward dog Standing Exercise Name reviewed HEP: posterior chain flexibility: HS/calf Reps/Minutes 10 x5 Comments much cuing, discussed elevate buttocks to allow HS stretch, tight calf toe raises Standing Exercise Name Toe raises (DF)- back to wall and facing Equipment Used back to wall Reps/Minutes 10SH x 8 Comments active calf stretch/ ROM trunk wt shift rotation Standing Exercise Name reviewed rotation- concentric/ eccentric stretch Resistance cable 10# Equipment Used reviewed for gym application Reps/Minutes 2x5 Comments good feedback response Other Exercises child's pose Other Exercise Name viewed self stretch Reps/Minutes 30 stretch Comments good form, limited sitting onto heels demosrtrated. 1/2 knee hip flexor stretch Other Exercise Name 1/2 knee hip flexor stretch: same UE reach OH Side bilateral Equipment Used blue mat and step stool handle contact Reps/Minutes 20s x2 Comments good feedback stretch- diminished L upper glut pain initially felt Quadruped Other Exercise Name cat camel> UE/LE Ext - HEP Side bilateral Reps/Minutes 10SH x 5 reps Comments slow progress ROM tolerant stab w/ core fac Manual Therapy Treatment Soft Tissue Mobilization iliopsoas Body Location L Mobilization Type Sustained Pressure Intensity/Depth Moderate Body Position Hooklying Comments Manual with breath, good LB releases reported PT-OP-R Modalities Start: 08/30/21 20:11 Freq: Status: Active Protocol: Document 09/09/21 14:36 NBM (Rec: 09/09/21 18:37 NB [id number]) Hot Pack/Cold Pack Treatment Cold Pack Location Lumbar and L glute Patient Position Prone Treatment Duration (minutes) 10 Patient Tolerance Good Comments lumbar cold pack PT-OP-T Assessment and Plan Start: 08/30/21 20:11 Freq: Status: Active Protocol: Document 10/17/21 12:18 SP (Rec: 10/17/21 13:01 SP [id number]) Physical Therapy Assessment Goals Three Impairment Strength Short Term Goal (STG) Lift a little more weight STG Duration 10/20/21 Shelter Goal (LTG) Improve core strength. LTG Duration 10/21/22 Two Impairment Decreased mobility due to back L hip/LE pain. Impairment Pt requires ~ 1 week of recovery when he flares up his back. Pt has L LB/buttock pain and sometimes LE/foot pain when reaching outward to do activities. Short Term Goal (STG) Improve pt ability to be more resilient to mobility situations (less recovery time when causing a flare up) 10/02/21: progressing: states getting more resilent with recovery, better self aware of core fac to support LBP. STG Duration 10/20/21 progressin10/02/21 Shelter Goal (LTG) Pt will be able to have greater tolerance to reaching away from body and therefore able to do more with his 4 yr olds. 10/02/21: progressing: getting better is focused on positioning pulling out water hose and reaching in car to give core support. LTG Duration 12/06/21 progressin10/02/21 One Impairment Lacks appropriage HEP Short Term Goal (STG) Pt educated in Proper body mechanics for daily activities and possibly be able to help with gardening. STG Duration 09/13/21 (09/13/21: MET GOAL) Luster Repairer Goal (LTG) Pt will be educated in a self care HEP of core/hip mobility and strengthening exercises. (09/13/21: HEP: hip mobility ex's) 09/24/21: Initiated self STMs ball wall, rolling pin, quadruped UE/ LE ext, cat camel. 10/02/21: added downward dog, toe raises back to wall, LS rotation. LTG Duration 12/06/21 (10/02/21: Progressed) Assessment Summary Assessment Pt good feedback response to manual, decreases LB and hip pain/tension. Improved fair stability bird dog. Cues for trunk alignment during plank to allow spinal /TA support not over facilitation pain in LB. Pt responds well to activity hiking/biking for loosening up LB/ lateral LE. COmpliant with stretching. Physical Therapy Plan Frequency and Duration Frequency of Treatment 2x/Week Plan of Care Start Date 09/05/21 Plan of Care End Date 12/06/21 Therapeutic Interventions Therapeutic Interventions Aquatic Therapy,Home Exercise Program,Joint Mobilizations, Manual Therapy,Patient/ Caregiver Education,Self-Care/ Home Management,Soft Tissue Mobilization,Taping, Therapeutic Activities, Therapeutic Exercises Modalities Cold Pack/Ice Massage,Electric Stimulation,Hot Packs, Traction- Mechanical, Ultrasound Next Visit Focus/Plan Next Note Type Treatment Note Next Visit Plan Re-review downward dog & DF strengthening, Continue hip flexor stretching with functional core and L hip strengthening. Next: Next tx add doorway ITB and QL and manual Iliopsoas stretch. Pt education on proper gait, self care and home exercises. Progress core strengthening. Manual traction. POC: Focus on core/pelvic/hip stabilization and improve L hip mobility & fascial mobility lumbar/L hip. As needed, decrease soft tissue muscle guarding and pain.
--- NOTE | 2021-10-22 09:00 | PT.OTN ---
Current Diagnoses Low back pain, unspecified (10/22/21) Physical Therapy Treatment Note PT-OP-A Visit Information Start: 08/30/21 20:11 Freq: Status: Active Protocol: Document 10/22/21 08:16 SP (Rec: 10/22/21 09:04 SP [id number]) Out-Patient Physical Therapy Visit Information Visit Information Visit Type Treatment Note Visit Start Time 08:16 Visit Stop Time 09:00 Total Visit Minutes 44 Visit Number 10 Number of MANAGER BRAND Visits 2 Evaluation Information Evaluation Date 09/05/21 PT-OP-B Current Condition Start: 08/30/21 20:11 Freq: Status: Active Protocol: Document 09/05/21 08:09 LRN (Rec: 09/05/21 12:06 LRN [id number]) Current Condition History of Current Condition Onset Date Few weeks ago. Current Complaints Pn primarily in L LB>buttock> lateral leg into big toe, little in umbilicus History of Current Condition Frequent flared up episodes of back pain that worsens for ~ 1 week. Currently in a stable place in his back. Decades of history of back pain. Always looking to try and improve. Walk/hike daily but very fragile. If turn too fast can have a lot of problems for a week. Must be careful how he sits, moves, bend over, etc. Gets numbness in the legs and into the feet when hurts self. Hopes to be able to strengthen muscle groups to stabilize core. Laser surgery to remove 2 portions of disc and remove bone spurs in the lumbar spine somewhere in [facility] for lumbar region ~ 6yrs ago and restored ability to walk. Accupuncture helped to relax for the hour, Tramadol was very helpful. Prior Treatments and Tests Has had physical therapy and variable treatments. Just came from [facility] and just had EStim and massage . Like the EStim. After surgery in [facility] had therapy ex's, and ES, massage, heat. Developmental History Developmental History Kids age 27, 23 & two 4 yr olds. Couldn't carry first 2 kids. 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 Treatment Goals Patient/Caregiver Goals Learn how to take care of the body and strengthen the core. Make him more resilient to situations and help him to be able to do more with his 4 yr old. Would love to do gardening. 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 Sometimes must ask for help to lift heavy objects and heavy objects putting away above head. Current Functional Impairments (Reported) Functional Limitations- ADL's Difficulty bending over, must be careful picking up children . Can't run Personal Factors Other Personal Factors That May Effect Has 4 yr old twins. Therapy/Recovery Decade long history of back pain and surgeries. PT-OP-C Subjective Start: 08/30/21 20:11 Freq: Status: Active Protocol: Document 10/22/21 08:16 SP (Rec: 10/22/21 09:04 SP [id number]) OP-PT Subjective Patient Comments Patient Comments Pt reported busy with family in town this past weekend compliant with HEP, doing his hikes daily without issues. But Sat night sat in chair with trunk rotation about 1 hr talking to guests and again has pain, still has to position chairs to face people for more comfortable back support, states best if stands . Is still hard to reach bent over with arms stretched out help kids in car/ pick something off floor when still stand outside car. PT-OP-G Mobility & Gait Start: 08/30/21 20:11 Freq: Status: Active Protocol: Document 09/05/21 08:09 LRN (Rec: 09/05/21 12:06 LRN [id number]) OP Gait Assessment Gait Gait Assistance Required: Independent Able to Maintain Weight Bearing Status Yes During Gait Assistive Devices Assistive Device None Comments Gait Comments Trendelenburg lean to the R. PT-OP-J Posture/Palpation/Skin Start: 08/30/21 20:11 Freq: Status: Active Protocol: Document 09/05/21 08:09 LRN (Rec: 09/05/21 12:06 LRN [id number]) Posture Evaluation Position Standing L-Spine Posture Increased Lordosis Shoulder Posture (L) Elevated Pelvis Posture Anteriorly Tilted Comments Posture Comments L leg a little atrophy, L lower paraspinals mild atrophy . L foot slightly ER'd Palpation Assessment Location Low Back Palpation Location Decreased tone at L lower paraspinals. PT-OP-K Range of Motion Start: 08/30/21 20:11 Freq: Status: Active Protocol: Document 09/05/21 08:09 LRN (Rec: 09/05/21 12:06 LRN [id number]) Lumbar Spine Range of Motion Lumbar Spine Active Degrees Testing Position Standing Flexion 80 Extension 5 Rotation Left 10 Rotation Right 10 Lateral Flexion Left 10 Lateral Flexion Right 10 ROM Limitations Pain Comments FB: 80 deg's with 60's hip flexion BB: 5 deg's with 5 deg's hip extension. Increased LLE pain with repetitive forward bend. Hip Goniometric Range of Motion Hip Right Passive Testing Position Supine Straight Leg Raise 85 Internal Rotation 20 External Rotation 30 Left Passive Testing Position Supine Straight Leg Raise 60 Internal Rotation 0 External Rotation 65 PT-OP-L Special Tests Start: 08/30/21 20:11 Freq: Status: Active Protocol: Document 09/05/21 08:09 LRN (Rec: 09/05/21 12:06 LRN [id number]) Special Tests Lumbar Spine Special Tests [place] Test Results + bilaterally Straight Leg Raise Test Results 85 R, 60 L Standing Flexion Test Results + Comments LLB/LLE pain Vertical Spine Loading Test Results - Comments No pain, pt went into extension PT-OP-M Strength Start: 08/30/21 20:11 Freq: Status: Active Protocol: Document 09/05/21 08:09 LRN (Rec: 09/05/21 12:06 LRN [id number]) Trunk Strength Trunk Manual Muscle Testing Core Stabilization Lacks stability with hip flex and AB/AD Hip Strength Hip Manual Muscle Testing Right Flexion (L2) 5 Normal Extension (S1) 4 Good Abduction 5 Normal Adduction 5 Normal External Rotation 5 Normal Internal Rotation 3 Fair Left Flexion (L2) 2+ Poor+ Extension (S1) 3- Fair- Abduction 4+ Good+ Adduction 2 Poor External Rotation 3 Fair Internal Rotation 3+ Fair+ PT-OP-Q Treatments Start: 08/30/21 20:11 Freq: Status: Active Protocol: Document 10/22/21 08:16 SP (Rec: 10/22/21 09:04 SP [id number]) Cardio Equipment Bicycle (Upright) Duration (Minutes) 7 Resistance 7 Seat Position 10 Other 81-90 rpm, 4.10 miles Gym Equipment Therapeutic Ball prone LS ext Exercise Details Ts, Is, Ys- (try in future tx) . Ball Size/Color 65cm Body Position Prone bridge Ball Size/Color 55cm Body Position supine on table, lower legs over tball Reps/Duration 5 sec hold x10 Comments cued neutral LS, knee extension soft position, post chain fac with good core response, diminished hip flexor recruitment initial felt. Therapeutic Exercises Supine Exercises Bug Supine Exercise Name Bug: UE/ LE ext Side bilateral Reps/Minutes 3x5 reps Comments cued slow pacing and tolerant range ext to allow no LB/ hip recruitment LTR Supine Exercise Name Lower trunk rotation - HEP Side bilateral Equipment Used Green TBall Reps/Minutes x10 ea Comments Cuing to not shift feet and equally stretch. Piriformis Stretch Supine Exercise Name Piriformis - HEP Side bilateral Reps/Minutes 2 x 60 ea Comments long towel instead of hands to avoid thoracic/cervical flexion Manual Therapy Treatment Soft Tissue Mobilization iliopsoas Body Location L>R Mobilization Type Sustained Pressure,Trigger Point Release Intensity/Depth Moderate Body Position Hooklying Comments Manual with breath, good LB releases reported Hip Body Location L>R Glut Med, L>R Piriformis Mobilization Type Sustained Pressure,Trigger Point Release Intensity/Depth Moderate Body Position Sidelying Comments good feedback releases PT-OP-R Modalities Start: 08/30/21 20:11 Freq: Status: Active Protocol: Document 09/09/21 14:36 NBM (Rec: 09/09/21 18:37 NBM [id number]) Hot Pack/Cold Pack Treatment Cold Pack Location Lumbar and L glute Patient Position Prone Treatment Duration (minutes) 10 Patient Tolerance Good Comments lumbar cold pack PT-OP-T Assessment and Plan Start: 08/30/21 20:11 Freq: Status: Active Protocol: Document 10/22/21 08:16 SP (Rec: 10/22/21 09:04 SP [id number]) Physical Therapy Assessment Goals Three Impairment Strength Short Term Goal (STG) Lift a little more weight STG Duration 10/20/21 Sorting And Folding Supervisor Goal (LTG) Improve core strength. LTG Duration 12/06/21 Two Impairment Decreased mobility due to back L hip/LE pain. Impairment Pt requires ~ 1 week of recovery when he flares up his back. Pt has L LB/buttock pain and sometimes LE/foot pain when reaching outward to do activities. Short Term Goal (STG) Improve pt ability to be more resilient to mobility situations (less recovery time when causing a flare up) 10/02/21: progressing: states getting more resilent with recovery, better self aware of core fac to support LBP. 10/22/21: having pain when sit talking to someone in rotation , doesn't go a day without pain. Pain rotation giving cast iron pot to someone. STG Duration 10/20/21 progressin10/22/21 Correction Goal (LTG) Pt will be able to have greater tolerance to reaching away from body and therefore able to do more with his 4 yr olds. 10/02/21: progressing: getting better is focused on positioning pulling out water hose and reaching in car to give core support. 10/22/21: can lift/carry kids 45 -50# but only if close to body but reaching to buckle them in or pick something off floor does me in. LTG Duration 12/06/21 progressin10/22/21 One Impairment Lacks appropriage HEP Short Term Goal (STG) Pt educated in Proper body mechanics for daily activities and possibly be able to help with gardening. STG Duration 09/13/21 (09/13/21: MET GOAL) Sorting And Folding Supervisor Goal (LTG) Pt will be educated in a self care HEP of core/hip mobility and strengthening exercises. (09/13/21: HEP: hip mobility ex's) 09/24/21: Initiated self STMs ball wall, rolling pin, quadruped UE/ LE ext, cat camel. 10/02/21: added downward dog, toe raises back to wall, LS rotation. 10/14/21/reviewed 10/22/21: added bug, core trunk rotation wt ball. LTG Duration 12/06/21 (10/22/21: Progressed) Assessment Summary Assessment Pt improved LB and hip flexibility after manual iliopsoas, glut med, piriformis reported more mobility once in standing. Pt had good core fac with initiated core bridge and knee extension cued correction deminished hip flexor recruitment. Pt stated doing well with core rotation HEP at gym and stretching. Still limited in back pain with stationary sitting > standing and reaching away from body weighted and AROM in trunk flexed position to allow transfer/ hand off items and helps kids in back seat from standing outside car. Physical Therapy Plan Frequency and Duration Frequency of Treatment 2x/Week Plan of Care Start Date 09/05/21 Plan of Care End Date 12/06/21 Therapeutic Interventions Therapeutic Interventions Aquatic Therapy,Home Exercise Program,Joint Mobilizations, Manual Therapy,Patient/ Caregiver Education,Self-Care/ Home Management,Soft Tissue Mobilization,Taping, Therapeutic Activities, Therapeutic Exercises Modalities Cold Pack/Ice Massage,Electric Stimulation,Hot Packs, Traction- Mechanical, Ultrasound Next Visit Focus/Plan Next Note Type Treatment Note Next Visit Plan NExt tx: body mechanics car, lifting, add core press outs, review gym resisted rotation w / TA. Continue hip flexor stretching with functional core and L hip strengthening. Next tx add doorway ITB and QL and manual Iliopsoas stretch. Pt education on proper gait, self care and home exercises. Progress core strengthening . Manual traction. POC: Focus on core/pelvic/hip stabilization and improve L hip mobility & fascial mobility lumbar/L hip. As needed, decrease soft tissue muscle guarding and pain.
--- NOTE | 2021-10-29 09:00 | PT.OTN ---
Current Diagnoses Low back pain, unspecified (10/29/21) Physical Therapy Treatment Note PT-OP-A Visit Information Start: 08/30/21 20:11 Freq: Status: Active Protocol: Document 10/29/21 08:17 SP (Rec: 10/29/21 09:03 SP [id number]) Out-Patient Physical Therapy Visit Information Visit Information Visit Type Treatment Note Visit Start Time 08:17 Visit Stop Time 09:00 Total Visit Minutes 43 Visit Number 11 Number of SENIOR PRODUCT DEVELOPMENT SCIENTIST Visits 3 Evaluation Information Evaluation Date 09/05/21 PT-OP-B Current Condition Start: 08/30/21 20:11 Freq: Status: Active Protocol: Document 09/05/21 08:09 LRN (Rec: 09/05/21 12:06 LRN [id number]) Current Condition History of Current Condition Onset Date Few weeks ago. Current Complaints Pn primarily in L LB>buttock> lateral leg into big toe, little in umbilicus History of Current Condition Frequent flared up episodes of back pain that worsens for ~ 1 week. Currently in a stable place in his back. Decades of history of back pain. Always looking to try and improve. Walk/hike daily but very fragile. If turn too fast can have a lot of problems for a week. Must be careful how he sits, moves, bend over, etc. Gets numbness in the legs and into the feet when hurts self. Hopes to be able to strengthen muscle groups to stabilize core. Laser surgery to remove 2 portions of disc and remove bone spurs in the lumbar spine somewhere in [facility] for lumbar region ~ 6yrs ago and restored ability to walk. Accupuncture helped to relax for the hour, Tramadol was very helpful. Prior Treatments and Tests Has had physical therapy and variable treatments. Just came from [facility] and just had EStim and massage . Like the EStim. After surgery in [facility] had therapy ex's, and ES, massage, heat. Developmental History Developmental History Kids age 27, 23 & two 4 yr olds. Couldn't carry first 2 kids. 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 Treatment Goals Patient/Caregiver Goals Learn how to take care of the body and strengthen the core. Make him more resilient to situations and help him to be able to do more with his 4 yr old. Would love to do gardening. 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 Sometimes must ask for help to lift heavy objects and heavy objects putting away above head. Current Functional Impairments (Reported) Functional Limitations- ADL's Difficulty bending over, must be careful picking up children . Can't run Personal Factors Other Personal Factors That May Effect Has 4 yr old twins. Therapy/Recovery Decade long history of back pain and surgeries. PT-OP-C Subjective Start: 08/30/21 20:11 Freq: Status: Active Protocol: Document 10/29/21 08:17 SP (Rec: 10/29/21 09:03 SP [id number]) OP-PT Subjective Patient Comments Patient Comments Pt stated is able to moss picker daughter weighing about 46 #s and ableto carry her longer distances before back starts to hurt. His son climbs on him and when carrying him son leans back and causes discomfort in back still. He over the past week started incorporating some of fitness center exercises: planks, plus and back sore upon arrival. PT-OP-G Mobility & Gait Start: 08/30/21 20:11 Freq: Status: Active Protocol: Document 09/05/21 08:09 LRN (Rec: 09/05/21 12:06 LRN [id number]) OP Gait Assessment Gait Gait Assistance Required: Independent Able to Maintain Weight Bearing Status Yes During Gait Assistive Devices Assistive Device None Comments Gait Comments Trendelenburg lean to the R. PT-OP-J Posture/Palpation/Skin Start: 08/30/21 20:11 Freq: Status: Active Protocol: Document 09/05/21 08:09 LRN (Rec: 09/05/21 12:06 LRN [id number]) Posture Evaluation Position Standing L-Spine Posture Increased Lordosis Shoulder Posture (L) Elevated Pelvis Posture Anteriorly Tilted Comments Posture Comments L leg a little atrophy, L lower paraspinals mild atrophy . L foot slightly ER'd Palpation Assessment Location Low Back Palpation Location Decreased tone at L lower paraspinals. PT-OP-K Range of Motion Start: 08/30/21 20:11 Freq: Status: Active Protocol: Document 09/05/21 08:09 LRN (Rec: 09/05/21 12:06 LRN [id number]) Lumbar Spine Range of Motion Lumbar Spine Active Degrees Testing Position Standing Flexion 80 Extension 5 Rotation Left 10 Rotation Right 10 Lateral Flexion Left 10 Lateral Flexion Right 10 ROM Limitations Pain Comments FB: 80 deg's with 60's hip flexion BB: 5 deg's with 5 deg's hip extension. Increased LLE pain with repetitive forward bend. Hip Goniometric Range of Motion Hip Right Passive Testing Position Supine Straight Leg Raise 85 Internal Rotation 20 External Rotation 30 Left Passive Testing Position Supine Straight Leg Raise 60 Internal Rotation 0 External Rotation 65 PT-OP-L Special Tests Start: 08/30/21 20:11 Freq: Status: Active Protocol: Document 09/05/21 08:09 LRN (Rec: 09/05/21 12:06 LRN [id number]) Special Tests Lumbar Spine Special Tests [place] Test Results + bilaterally Straight Leg Raise Test Results 85 R, 60 L Standing Flexion Test Results + Comments LLB/LLE pain Vertical Spine Loading Test Results - Comments No pain, pt went into extension PT-OP-M Strength Start: 08/30/21 20:11 Freq: Status: Active Protocol: Document 09/05/21 08:09 LRN (Rec: 09/05/21 12:06 LRN [id number]) Trunk Strength Trunk Manual Muscle Testing Core Stabilization Lacks stability with hip flex and AB/AD Hip Strength Hip Manual Muscle Testing Right Flexion (L2) 5 Normal Extension (S1) 4 Good Abduction 5 Normal Adduction 5 Normal External Rotation 5 Normal Internal Rotation 3 Fair Left Flexion (L2) 2+ Poor+ Extension (S1) 3- Fair- Abduction 4+ Good+ Adduction 2 Poor External Rotation 3 Fair Internal Rotation 3+ Fair+ PT-OP-Q Treatments Start: 08/30/21 20:11 Freq: Status: Active Protocol: Document 10/29/21 08:17 SP (Rec: 10/29/21 09:03 SP [id number]) Cardio Equipment Bicycle (Upright) Duration (Minutes) 7 Resistance 7 Seat Position 10 Other 81-90 rpm, 4.10 miles Therapeutic Exercises Supine Exercises LTR Supine Exercise Name Lower trunk rotation long leg over opp straight leg stretch Side bilateral Equipment Used changed to long leg, arms out to side T Reps/Minutes 30 x3 Comments good low back and bicep stretching Prone Exercises scorpion LS rotation stretch Prone Exercise Name added to HEP: LE knee flexion/ LS Rot over opp straight leg Side bilateral Reps/Minutes 20s x3 Comments good feedback stretch: ES, QL, pec Tball Prone Exercise Name IN PT: no ball at home: trialed for future HEP Ts, Ys Side bilateral Resistance AROM Equipment Used feet into wall, 65cm Tball Reps/Minutes 2x5 reps each direction, rest between sets Comments cued knee extended, glut squeeze- good core fac/ anterior chain stretch Sitting Exercises self STMs Sitting Exercise Name added ball on wall: glut/ piriformis Side left Reps/Minutes 3 min Comments good feedback massage response Standing Exercises D2 flexion Standing Exercise Name improved performance Side bilateral Resistance 10# silver med ball Reps/Minutes x10 each direction Comments cued posturing and wt close to body and full into ext w/ rotation Other Exercises cable squat rows Other Exercise Name trailed for gym Resistance #20 Reps/Minutes x8 reps Comments cued hip hinge Self-Care/Home Management Treatment Education Patient Education Body Mechanics,Home Exercise Program,Posture Other Education added prone scorpion, supine LTR long leg lever, Trunk rotation: standing triangle vs windmill rotation stretches PT-OP-R Modalities Start: 08/30/21 20:11 Freq: Status: Active Protocol: Document 09/09/21 14:36 NBM (Rec: 09/09/21 18:37 NBM [id number]) Hot Pack/Cold Pack Treatment Cold Pack Location Lumbar and L glute Patient Position Prone Treatment Duration (minutes) 10 Patient Tolerance Good Comments lumbar cold pack PT-OP-T Assessment and Plan Start: 08/30/21 20:11 Freq: Status: Active Protocol: Document 10/29/21 08:17 SP (Rec: 10/29/21 09:03 SP [id number]) Physical Therapy Assessment Goals Three Impairment Strength Short Term Goal (STG) Lift a little more weight STG Duration 10/20/21 Mechanical Drawing Teacher Goal (LTG) Improve core strength. LTG Duration 12/06/21 Two Impairment Decreased mobility due to back L hip/LE pain. Impairment Pt requires ~ 1 week of recovery when he flares up his back. Pt has L LB/buttock pain and sometimes LE/foot pain when reaching outward to do activities. Short Term Goal (STG) Improve pt ability to be more resilient to mobility situations (less recovery time when causing a flare up) 10/02/21: progressing: states getting more resilent with recovery, better self aware of core fac to support LBP. 10/22/21: having pain when sit talking to someone in rotation , doesn't go a day without pain. Pain rotation giving cast iron pot to someone. STG Duration 10/20/21 progressin10/22/21 Custodial Goal (LTG) Pt will be able to have greater tolerance to reaching away from body and therefore able to do more with his 4 yr olds. 10/02/21: progressing: getting better is focused on positioning pulling out water hose and reaching in car to give core support. 10/22/21: can lift/carry kids 45 -50# but only if close to body but reaching to buckle them in or pick something off floor does me in. LTG Duration 12/06/21 progressin10/22/21 One Impairment Lacks appropriage HEP Short Term Goal (STG) Pt educated in Proper body mechanics for daily activities and possibly be able to help with gardening. STG Duration 09/13/21 (09/13/21: MET GOAL) Custodial Goal (LTG) Pt will be educated in a self care HEP of core/hip mobility and strengthening exercises. (09/13/21: HEP: hip mobility ex's) 09/24/21: Initiated self STMs ball wall, rolling pin, quadruped UE/ LE ext, cat camel. 10/02/21: added downward dog, toe raises back to wall, LS rotation. 10/14/21/reviewed 10/22/21: added bug, core trunk rotation wt ball. LTG Duration 12/06/21 (10/22/21: Progressed) Assessment Summary Assessment Pt responded well to LS rotation AROM and stretching this tx prone/supine/ standing , increased hip and anterior chain stretch into extension, cued TA as needed for no ES recruitment. Physical Therapy Plan Frequency and Duration Frequency of Treatment 2x/Week Plan of Care Start Date 09/05/21 Plan of Care End Date 12/06/21 Therapeutic Interventions Therapeutic Interventions Aquatic Therapy,Home Exercise Program,Joint Mobilizations, Manual Therapy,Patient/ Caregiver Education,Self-Care/ Home Management,Soft Tissue Mobilization,Taping, Therapeutic Activities, Therapeutic Exercises Modalities Cold Pack/Ice Massage,Electric Stimulation,Hot Packs, Traction- Mechanical, Ultrasound Next Visit Focus/Plan Next Note Type Treatment Note Next Visit Plan NExt tx: body mechanics car, lifting, update goals, recheck scorpion/ LTR stretches. Continue hip flexor stretching with functional core and L hip strengthening. Next tx add doorway ITB and QL and manual Iliopsoas stretch. Pt education on proper gait, self care and home exercises. Progress core strengthening. Manual traction. POC: Focus on core/pelvic/hip stabilization and improve L hip mobility & fascial mobility lumbar/L hip. As needed, decrease soft tissue muscle guarding and pain.
--- NOTE | 2021-11-01 09:05 | PT.OTN ---
Current Diagnoses Low back pain, unspecified (11/01/21) Physical Therapy Treatment Note PT-OP-A Visit Information Start: 08/30/21 20:11 Freq: Status: Active Protocol: Document 11/01/21 08:20 SP (Rec: 11/01/21 09:07 SP [id number]) Out-Patient Physical Therapy Visit Information Visit Information Visit Type Treatment Note Visit Note PN due, 13th visit, unable get into see PT/ only BUSINESS DEVELOPMENT MANAGER availability. Visit Start Time 08:20 Visit Stop Time 09:05 Total Visit Minutes 45 Visit Number 12 Number of BUSINESS DEVELOPMENT MANAGER Visits 4 Evaluation Information Evaluation Date 09/05/21 PT-OP-B Current Condition Start: 08/30/21 20:11 Freq: Status: Active Protocol: Document 09/05/21 08:09 LRN (Rec: 09/05/21 12:06 LRN [id number]) Current Condition History of Current Condition Onset Date Few weeks ago. Current Complaints Pn primarily in L LB>buttock> lateral leg into big toe, little in umbilicus History of Current Condition Frequent flared up episodes of back pain that worsens for ~ 1 week. Currently in a stable place in his back. Decades of history of back pain. Always looking to try and improve. Walk/hike daily but very fragile. If turn too fast can have a lot of problems for a week. Must be careful how he sits, moves, bend over, etc. Gets numbness in the legs and into the feet when hurts self. Hopes to be able to strengthen muscle groups to stabilize core. Laser surgery to remove 2 portions of disc and remove bone spurs in the lumbar spine somewhere in [facility] for lumbar region ~ 6yrs ago and restored ability to walk. Accupuncture helped to relax for the hour, Tramadol was very helpful. Prior Treatments and Tests Has had physical therapy and variable treatments. Just came from [place] and just had EStim and massage . Like the EStim. After surgery in [facility] had therapy ex's, and ES, massage, heat. Developmental History Developmental History Kids age 27, 23 & two 4 yr olds. Couldn't carry first 2 kids. 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 Treatment Goals Patient/Caregiver Goals Learn how to take care of the body and strengthen the core. Make him more resilient to situations and help him to be able to do more with his 4 yr old. Would love to do gardening. 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 Sometimes must ask for help to lift heavy objects and heavy objects putting away above head. Current Functional Impairments (Reported) Functional Limitations- ADL's Difficulty bending over, must be careful picking up children . Can't run Personal Factors Other Personal Factors That May Effect Has 4 yr old twins. Therapy/Recovery Decade long history of back pain and surgeries. PT-OP-C Subjective Start: 08/30/21 20:11 Freq: Status: Active Protocol: Document 11/01/21 08:20 SP (Rec: 11/01/21 09:07 SP [id number]) OP-PT Subjective Patient Comments Patient Comments Pt reported has to be so careful and focus on proper form/ alignment at gym especially with weights to support back so doesn't hurt self. He has been doing 2 workout/activities per day: hiking in [place] HR 140s and biking/aerobic notices doing so well that notices his heart rate is pretty good in 90s with effort. Feels hiking steep getting easier. PT-OP-G Mobility & Gait Start: 08/30/21 20:11 Freq: Status: Active Protocol: Document 09/05/21 08:09 LRN (Rec: 09/05/21 12:06 LRN [id number]) OP Gait Assessment Gait Gait Assistance Required: Independent Able to Maintain Weight Bearing Status Yes During Gait Assistive Devices Assistive Device None Comments Gait Comments Trendelenburg lean to the R. PT-OP-J Posture/Palpation/Skin Start: 08/30/21 20:11 Freq: Status: Active Protocol: Document 09/05/21 08:09 LRN (Rec: 09/05/21 12:06 LRN [id number]) Posture Evaluation Position Standing L-Spine Posture Increased Lordosis Shoulder Posture (L) Elevated Pelvis Posture Anteriorly Tilted Comments Posture Comments L leg a little atrophy, L lower paraspinals mild atrophy . L foot slightly ER'd Palpation Assessment Location Low Back Palpation Location Decreased tone at L lower paraspinals. PT-OP-K Range of Motion Start: 08/30/21 20:11 Freq: Status: Active Protocol: Document 09/05/21 08:09 LRN (Rec: 09/05/21 12:06 LRN [id number]) Lumbar Spine Range of Motion Lumbar Spine Active Degrees Testing Position Standing Flexion 80 Extension 5 Rotation Left 10 Rotation Right 10 Lateral Flexion Left 10 Lateral Flexion Right 10 ROM Limitations Pain Comments FB: 80 deg's with 60's hip flexion BB: 5 deg's with 5 deg's hip extension. Increased LLE pain with repetitive forward bend. Hip Goniometric Range of Motion Hip Right Passive Testing Position Supine Straight Leg Raise 85 Internal Rotation 20 External Rotation 30 Left Passive Testing Position Supine Straight Leg Raise 60 Internal Rotation 0 External Rotation 65 PT-OP-L Special Tests Start: 08/30/21 20:11 Freq: Status: Active Protocol: Document 09/05/21 08:09 LRN (Rec: 09/05/21 12:06 LRN [id number]) Special Tests Lumbar Spine Special Tests [place] Test Results + bilaterally Straight Leg Raise Test Results 85 R, 60 L Standing Flexion Test Results + Comments LLB/LLE pain Vertical Spine Loading Test Results - Comments No pain, pt went into extension PT-OP-M Strength Start: 08/30/21 20:11 Freq: Status: Active Protocol: Document 09/05/21 08:09 LRN (Rec: 09/05/21 12:06 LRN [id number]) Trunk Strength Trunk Manual Muscle Testing Core Stabilization Lacks stability with hip flex and AB/AD Hip Strength Hip Manual Muscle Testing Right Flexion (L2) 5 Normal Extension (S1) 4 Good Abduction 5 Normal Adduction 5 Normal External Rotation 5 Normal Internal Rotation 3 Fair Left Flexion (L2) 2+ Poor+ Extension (S1) 3- Fair- Abduction 4+ Good+ Adduction 2 Poor External Rotation 3 Fair Internal Rotation 3+ Fair+ PT-OP-Q Treatments Start: 08/30/21 20:11 Freq: Status: Active Protocol: Document 11/01/21 08:20 SP (Rec: 11/01/21 09:07 SP [id number]) Cardio Equipment Bicycle (Upright) Duration (Minutes) 6 Resistance 6 Seat Position 9 Other 3.5 miles, 93RPMs Therapeutic Exercises Supine Exercises Fig 4 stretch Supine Exercise Name added to HEP Side bilateral Comments limited more L than R, improved post manual Bug Supine Exercise Name Bug: UE/ LE ext Side bilateral Resistance AROM>#2 DB BUE/#2 leg wt BLEs (felt more strain L post hip/ SI) Reps/Minutes x10 AROM ok core/ tiring, x8 reps 2# small range weighted Comments cued slow pacing and tolerant range ext to allow no LB/ hip recruitment LTR Supine Exercise Name Lower trunk rotation long leg over opp straight leg stretch Side bilateral Equipment Used changed to long leg, arms out to side T Reps/Minutes 30 x3 Comments cued try keep shlds toward floor- more flex to R then L HS Stretch Supine Exercise Name Hamstring/LE neural stretch - HEP Side bilateral Resistance pillow under head Equipment Used grasp behind thigh Reps/Minutes 2 x 60 ea SKTC Supine Exercise Name SKTC w/ AP - HEP Side bilateral Equipment Used pillow under head Reps/Minutes 2 x 60 ea Manual Therapy Treatment Soft Tissue Mobilization iliopsoas Body Location L Mobilization Type Sustained Pressure,Trigger Point Release Intensity/Depth Moderate Body Position Hooklying Comments Manual with breath, good hip and LB releases reported Hip Body Location L>R Glut Med and Piriformis Mobilization Type Strumming,Sustained Pressure, Trigger Point Release Intensity/Depth Moderate Body Position Prone Comments prone STMs then contract relax B hip IR/ ER: good feedback releases and increase ROM, very limited L IR> ER, R IR/> ER, improved fig 4 ER post manual (didn't measure). Self-Care/Home Management Treatment Education Patient Education Home Exercise Program,Posture Other Education added fig 4. PT-OP-R Modalities Start: 08/30/21 20:11 Freq: Status: Active Protocol: Document 09/09/21 14:36 NBM (Rec: 09/09/21 18:37 NBM [id number]) Hot Pack/Cold Pack Treatment Cold Pack Location Lumbar and L glute Patient Position Prone Treatment Duration (minutes) 10 Patient Tolerance Good Comments lumbar cold pack PT-OP-T Assessment and Plan Start: 08/30/21 20:11 Freq: Status: Active Protocol: Document 11/01/21 08:20 SP (Rec: 11/01/21 09:07 SP [id number]) Physical Therapy Assessment Goals Three Impairment Strength Short Term Goal (STG) Lift a little more weight 11/01/21: progressing ability to lift 10-15# ball with rotations standing and added UEs 10# curls, 3# DB ABD self HEP. STG Duration 10/20/21 progressin11/01/21 Penitentiary Goal (LTG) Improve core strength. 11/01/21: progressing: is compliant with core HEP, able to lift daughter and son with less back discomfort. Noted hiking up inclines getting easier. But feels still need be cautious with reaching out away from body and gym exercises proper alignement due to R SI/ LB will tell him vulnerable. LTG Duration 12/06/21 progressing 11/01/21 Two Impairment Decreased mobility due to back L hip/LE pain. Impairment Pt requires ~ 1 week of recovery when he flares up his back. Pt has L LB/buttock pain and sometimes LE/foot pain when reaching outward to do activities. Short Term Goal (STG) Improve pt ability to be more resilient to mobility situations (less recovery time when causing a flare up) 10/02/21: progressing: states getting more resilent with recovery, better self aware of core fac to support LBP. 10/22/21: having pain when sit talking to someone in rotation , doesn't go a day without pain. Pain rotation giving cast iron pot to someone. STG Duration 10/20/21 progressin10/22/21 Licensed Acupuncturist Goal (LTG) Pt will be able to have greater tolerance to reaching away from body and therefore able to do more with his 4 yr olds. 10/02/21: progressing: getting better is focused on positioning pulling out water hose and reaching in car to give core support. 10/22/21: can lift/carry kids 45 -50# but only if close to body but reaching to buckle them in or pick something off floor does me in. LTG Duration 12/06/21 progressin10/22/21 One Impairment Lacks appropriage HEP Short Term Goal (STG) Pt educated in Proper body mechanics for daily activities and possibly be able to help with gardening. STG Duration 09/13/21 (09/13/21: MET GOAL) Licensed Acupuncturist Goal (LTG) Pt will be educated in a self care HEP of core/hip mobility and strengthening exercises. (09/13/21: HEP: hip mobility ex's) 09/24/21: Initiated self STMs ball wall, rolling pin, quadruped UE/ LE ext, cat camel. 10/02/21: added downward dog, toe raises back to wall, LS rotation. 10/14/21/reviewed 10/22/21: added bug, core trunk rotation wt ball. 10/29/21: added LTR long leg, prone scorpion LS rotation. 11/01/21: added Fig 4 LTG Duration 12/06/21 (11/01/21: Progressed) Assessment Summary Assessment Pt stated making slow progression gains in strength and increase activity level but still getting post L hip/ SI pain region that goes into LB and aware cautious wt/ reach out activity. Limited L> R IR>ER hip ROM that causes pain into L SI and LB. Improved ROM ER and IR with report suprised less pain with this ROM but still there. Physical Therapy Plan Frequency and Duration Frequency of Treatment 2x/Week Plan of Care Start Date 09/05/21 Plan of Care End Date 12/06/21 Therapeutic Interventions Therapeutic Interventions Aquatic Therapy,Home Exercise Program,Joint Mobilizations, Manual Therapy,Patient/ Caregiver Education,Self-Care/ Home Management,Soft Tissue Mobilization,Taping, Therapeutic Activities, Therapeutic Exercises Modalities Cold Pack/Ice Massage,Electric Stimulation,Hot Packs, Traction- Mechanical, Ultrasound Next Visit Focus/Plan Next Note Type Progress Note Next Visit Plan NExt tx: check hip IR/ ER ROM, manual contract relax assist releases, recheck body mechanics car, gym lifting. Continue hip flexor stretching with functional core and L hip strengthening. Next tx add doorway ITB and QL, continue manual Iliopsoas, add IR/ ER hip rotation stretches. Pt education on proper gait, self care and home exercises. Progress core strengthening. Manual traction. POC: Focus on core/pelvic/hip stabilization and improve L hip mobility & fascial mobility lumbar/L hip. As needed, decrease soft tissue muscle guarding and pain.
--- NOTE | 2021-11-04 15:06 | PT.OTN ---
Current Diagnoses Low back pain, unspecified (11/04/21) Physical Therapy Treatment Note PT-OP-A Visit Information Start: 08/30/21 20:11 Freq: Status: Active Protocol: Document 11/04/21 12:45 LRN (Rec: 11/04/21 14:38 LRN [id number]) Out-Patient Physical Therapy Visit Information Visit Information Visit Type Progress Note Visit Start Time 12:45 Visit Stop Time 14:36 Total Visit Minutes 51 Visit Number 13 Evaluation Information Evaluation Date 09/05/21 PT-OP-B Current Condition Start: 08/30/21 20:11 Freq: Status: Active Protocol: Document 09/05/21 08:09 LRN (Rec: 09/05/21 12:06 LRN [id number]) Current Condition History of Current Condition Onset Date Few weeks ago. Current Complaints Pn primarily in L LB>buttock> lateral leg into big toe, little in umbilicus History of Current Condition Frequent flared up episodes of back pain that worsens for ~ 1 week. Currently in a stable place in his back. Decades of history of back pain. Always looking to try and improve. Walk/hike daily but very fragile. If turn too fast can have a lot of problems for a week. Must be careful how he sits, moves, bend over, etc. Gets numbness in the legs and into the feet when hurts self. Hopes to be able to strengthen muscle groups to stabilize core. Laser surgery to remove 2 portions of disc and remove bone spurs in the lumbar spine somewhere in [facility] for lumbar region ~ 6yrs ago and restored ability to walk. Accupuncture helped to relax for the hour, Tramadol was very helpful. Prior Treatments and Tests Has had physical therapy and variable treatments. Just came from [place] and just had EStim and massage . Like the EStim. After surgery in [facility] had therapy ex's, and ES, massage, heat. Developmental History Developmental History Kids age 27, 23 & two 4 yr olds. Couldn't carry first 2 kids. 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 Treatment Goals Patient/Caregiver Goals Learn how to take care of the body and strengthen the core. Make him more resilient to situations and help him to be able to do more with his 4 yr old. Would love to do gardening. 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 Sometimes must ask for help to lift heavy objects and heavy objects putting away above head. Current Functional Impairments (Reported) Functional Limitations- ADL's Difficulty bending over, must be careful picking up children . Can't run Personal Factors Other Personal Factors That May Effect Has 4 yr old twins. Therapy/Recovery Decade long history of back pain and surgeries. PT-OP-C Subjective Start: 08/30/21 20:11 Freq: Status: Active Protocol: Document 11/04/21 12:45 LRN (Rec: 11/04/21 14:38 LRN [id number]) OP-PT Subjective Patient Comments Patient Comments Able to do a little more. Feels ROM better. Noticed carrying kids can do it longer and more easily. Opened his sister's garage that he has avoided and was able to do it without feeling he was endangered (normally felt in danger and would have to quit) . Doing light wgt balls and barbells with elbows in and can now do a plank. Feeling more stable and can do more with upper body. Feeling more resilent. Heaviest lift is 15# at gym doing small motions . Hand barbells are 10# each side for simple curls. Swinging arms out to side is 3 #. Kids weight 45-50#. PT-OP-G Mobility & Gait Start: 08/30/21 20:11 Freq: Status: Active Protocol: Document 09/05/21 08:09 LRN (Rec: 09/05/21 12:06 LRN [id number]) OP Gait Assessment Gait Gait Assistance Required: Independent Able to Maintain Weight Bearing Status Yes During Gait Assistive Devices Assistive Device None Comments Gait Comments Trendelenburg lean to the R. PT-OP-J Posture/Palpation/Skin Start: 08/30/21 20:11 Freq: Status: Active Protocol: Document 09/05/21 08:09 LRN (Rec: 09/05/21 12:06 LRN [id number]) Posture Evaluation Position Standing L-Spine Posture Increased Lordosis Shoulder Posture (L) Elevated Pelvis Posture Anteriorly Tilted Comments Posture Comments L leg a little atrophy, L lower paraspinals mild atrophy . L foot slightly ER'd Palpation Assessment Location Low Back Palpation Location Decreased tone at L lower paraspinals. PT-OP-K Range of Motion Start: 08/30/21 20:11 Freq: Status: Active Protocol: Document 11/04/21 12:45 LRN (Rec: 11/04/21 14:38 LRN [id number]) Hip Goniometric Range of Motion Hip Right Passive Hip ROM WFL No Testing Position Supine Straight Leg Raise 85 Internal Rotation 20 External Rotation 55 Left Passive Hip ROM WFL No Testing Position Supine Straight Leg Raise 65 External Rotation 65 Comments IR is -10 deg's PT-OP-L Special Tests Start: 08/30/21 20:11 Freq: Status: Active Protocol: Document 09/05/21 08:09 LRN (Rec: 09/05/21 12:06 LRN [id number]) Special Tests Lumbar Spine Special Tests [place] Test Results + bilaterally Straight Leg Raise Test Results 85 R, 60 L Standing Flexion Test Results + Comments LLB/LLE pain Vertical Spine Loading Test Results - Comments No pain, pt went into extension PT-OP-M Strength Start: 08/30/21 20:11 Freq: Status: Active Protocol: Document 11/04/21 12:45 LRN (Rec: 11/04/21 14:38 LRN [id number]) Hip Strength Hip Manual Muscle Testing Right Flexion (L2) 5 Normal Extension (S1) 3+ Fair+ Abduction 5 Normal Adduction 5 Normal External Rotation 5 Normal Internal Rotation 5 Normal Left Flexion (L2) 3 Fair Extension (S1) 3 Fair Abduction 5 Normal Adduction 3+ Fair+ External Rotation 3 Fair Internal Rotation 5 Normal PT-OP-Q Treatments Start: 08/30/21 20:11 Freq: Status: Active Protocol: Document 11/04/21 12:45 LRN (Rec: 11/04/21 14:38 LRN [id number]) Cardio Equipment Bicycle (Upright) Duration (Minutes) 7 Resistance 6 Seat Position 9 Other 4.3 miles, 87 RPMs Therapeutic Exercises Supine Exercises SLR Supine Exercise Name SLR Comments Hip flex and trunk flex strength measured. Fig 4 stretch Supine Exercise Name Fig 4 (added to HEP) Side bilateral Reps/Minutes 2x L, 1x R Comments limited more L than R, improved post manual. Hip ER ROM taken LTR Supine Exercise Name Lower trunk rotation long leg over opp straight leg stretch Side bilateral Equipment Used changed to long leg, arms out to side T Reps/Minutes 30 x3 Comments cued try keep shlds toward floor- more flex to R then L Piriformis Stretch Supine Exercise Name Piriformis - HEP Side bilateral Reps/Minutes 2 x 60 ea Comments Used hands to pull knee up to chest, hip IR ROM taken Prone Exercises Hip Ext Prone Exercise Name Hip Ext Side bilateral Reps/Minutes 10x Comments MMT taken. L weaker than R. scorpion LS rotation stretch Prone Exercise Name added to HEP: LE knee flexion/ LS Rot over opp straight leg Side bilateral Reps/Minutes 20s x1 Comments good feedback stretch: ES, QL, pec Plank Prone Exercise Name elbows/feet, reviewed self HEP started back up Reps/Minutes 57 Comments cued glut and PPT fac to allow pelvis support elevated alignment Sidelying Exercises Hip AB/AD Sidelying Exercise Name Hip AB/AD Side bilateral Reps/Minutes 1x each Comments MMT taken Sitting Exercises Hip ER Sitting Exercise Name Hip ER active strengthening - ankle over knee Side left Reps/Minutes 10x Comments MMT taken Hip IR Sitting Exercise Name Hip IR AROM/stretch Comments MMT taken Hip flex strengthening Sitting Exercise Name L lift & march Reps/Minutes 3' Comments Cuing for trunk control & L hip staying in neutral. MMT Hip flex taken Hip ER strengthening Sitting Exercise Name Crossing ankle over knee with good posture, with & w/o assist Side left Reps/Minutes 10x Comments Pt poor awareness of core stability w/movement of ex, needing cuing. MMT Other Exercises child's pose Other Exercise Name viewed self stretch Reps/Minutes 30 stretch Comments good form, limited sitting onto heels demosrtrated. 1/2 knee hip flexor stretch Other Exercise Name 1/2 knee hip flexor stretch: same UE reach OH Side bilateral Equipment Used blue mat and step stool handle contact Reps/Minutes 20s x2 Comments good feedback stretch- diminished L upper glut pain initially felt Quadruped Other Exercise Name Opposite UE/LE Ext lifts - HEP Side bilateral Reps/Minutes 10SH x 5 reps Comments slow progress ROM tolerant stab w/ core fac PT-OP-R Modalities Start: 08/30/21 20:11 Freq: Status: Active Protocol: Document 09/09/21 14:36 [facility] (Rec: 09/09/21 18:37 [facility] [id number]) Hot Pack/Cold Pack Treatment Cold Pack Location Lumbar and L glute Patient Position Prone Treatment Duration (minutes) 10 Patient Tolerance Good Comments lumbar cold pack PT-OP-T Assessment and Plan Start: 08/30/21 20:11 Freq: Status: Active Protocol: Document 11/04/21 12:45 LRN (Rec: 11/04/21 14:38 LRN [id number]) Physical Therapy Assessment Rehab Potential Rehabilitation Potential Good Evaluation Complexity Number of Personal Factors/Comorbidities 1-2 Number of Body Systems Impaired 4 or More Clinical Presentation at Evaluation Evolving Impairments Impairments Activity Tolerance,Functional Mobility,Gait,Pain,Posture,ROM ,Soft Tissue Mobility,Strength Goals Three Impairment Strength Short Term Goal (STG) Lift a little more weight 11/01/21: progressing ability to lift 10-15# ball with rotations standing and added UEs 10# curls, 3# DB ABD self HEP. STG Duration 11/19/21 progressin11/01/21 [facility] Goal (LTG) Improve core strength. 11/01/21: progressing: is compliant with core HEP, able to lift daughter and son with less back discomfort. Noted hiking up inclines getting easier. But feels still need be cautious with reaching out away from body and gym exercises proper alignement due to R SI/ LB will tell him vulnerable. LTG Duration 12/06/21 progressing 11/01/21 Two Impairment Decreased mobility due to back L hip/LE pain. Impairment Pt requires ~ 1 week of recovery when he flares up his back. Pt has L LB/buttock pain and sometimes LE/foot pain when reaching outward to do activities. Short Term Goal (STG) Improve pt ability to be more resilient to mobility situations (recovery time < 24 hrs with a flare up). 10/02/21: progressing: states getting more resilent with recovery, better self aware of core fac to support LBP. 10/22/21: having pain when sit talking to someone in rotation , doesn't go a day without pain. Pain rotation giving cast iron pot to someone. STG Duration progressin10/22/21 [facility] Goal (LTG) Pt will be able to have greater tolerance to reaching away from body and therefore able to do more with his 4 yr olds. 10/02/21: progressing: getting better is focused on positioning pulling out water hose and reaching in car to give core support. 10/22/21: can lift/carry kids 45 -50# but only if close to body but reaching to buckle them in or pick something off floor does me in. 11/04/21: Can buckle kids if moving properly and not staying in the position too long. 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 LTG Duration 12/06/21 11/04/21: Partially met goal One Impairment Lacks appropriage HEP Short Term Goal (STG) Pt educated in Proper body mechanics for daily activities and possibly be able to help with gardening. STG Duration 09/13/21 (09/13/21: MET GOAL) Heeler Machine Goal (LTG) Pt will be educated in a self care HEP of core/hip mobility and strengthening exercises. (09/13/21: HEP: hip mobility ex's) 09/24/21: Initiated self STMs ball wall, rolling pin, quadruped UE/ LE ext, cat camel. 10/02/21: added downward dog, toe raises back to wall, LS rotation. 10/14/21/reviewed 10/22/21: added bug, core trunk rotation wt ball. 10/29/21: added LTR long leg, prone scorpion LS rotation. 11/01/21: added Fig 4 LTG Duration 12/06/21 (11/01/21: Progressed) Progress Towards Goals Progress Comments LTG #3 Partially met (can pick light objects off the floor and can buckle kids if holding body properly and if not staying in the position for very long). Assessment Summary Assessment Pt has made good progress overall. He is now able to lift his kids by their feet if they hug him closely. When he experiences a flare up he is able to recover in >24 hrs, rather than 1 week. Pt's L hip ER mobiity appears more restricted with ex stretch, but measures more mobile than right side, possibly due to substitution of movement with his L/S. He is much stronger in his core and can now do a plank with greater confidence for 57 secs and is able to maintain core stability with SLR. The pt continues to have flare ups and is not able to linger in a bent forward position when helping his kids buckle their seat belts. He is very restricted in L hip IR and is decreased in L hip and core (lateral, posterior and rotation) strength. He is just starting a return to gym ex's; therefore it is recommended that the pt continue skilled physical therapy to progress him in achieving greater core control , improve hip/trunk mobility and improve function of reaching, bending and lifting prior to discharge from therapy. Physical Therapy Plan Frequency and Duration Frequency of Treatment 2x/Week Plan of Care Start Date 09/05/21 Plan of Care End Date 12/06/21 Therapeutic Interventions Therapeutic Interventions Home Exercise Program,Joint Mobilizations,Manual Therapy, Patient/Caregiver Education, Self-Care/Home Management,Soft Tissue Mobilization,Taping, Therapeutic Activities, Therapeutic Exercises Modalities Cold Pack/Ice Massage,Electric Stimulation,Hot Packs, Traction- Mechanical, Ultrasound Next Visit Focus/Plan Next Note Type Treatment Note Next Visit Plan Next tx: Review scorpion stretch for proper motion. Manual contract relax assist releases (L hip IR, ER, hamstring), recheck body mechanics car, gym lifting. Continue hip flexor stretching with functional core and L hip strengthening. Next tx add doorway ITB and QL, continue manual Iliopsoas, add IR/ ER hip rotation stretches and strengthening for LLE. Pt education on proper gait, self care and home exercises. Progress core strengthening. Manual traction as needed. POC: Focus on core/pelvic/hip stabilization and improve L hip mobility & fascial mobility lumbar/L hip. As needed, decrease soft tissue muscle guarding and pain.
--- NOTE | 2021-11-08 16:53 | PT.OTN ---
Current Diagnoses Low back pain, unspecified (11/08/21) Physical Therapy Treatment Note PT-OP-A Visit Information Start: 08/30/21 20:11 Freq: Status: Active Protocol: Document 11/08/21 13:01 LRN (Rec: 11/08/21 13:51 LRN [id number]) Out-Patient Physical Therapy Visit Information Visit Information Visit Type Treatment Note Visit Note Pt used bathroom at start. Visit Start Time 13:03 Visit Stop Time 13:49 Total Visit Minutes 46 Visit Number 14 Evaluation Information Evaluation Date 09/05/21 PT-OP-B Current Condition Start: 08/30/21 20:11 Freq: Status: Active Protocol: Document 09/05/21 08:09 LRN (Rec: 09/05/21 12:06 LRN [id number]) Current Condition History of Current Condition Onset Date Few weeks ago. Current Complaints Pn primarily in L LB>buttock> lateral leg into big toe, little in umbilicus History of Current Condition Frequent flared up episodes of back pain that worsens for ~ 1 week. Currently in a stable place in his back. Decades of history of back pain. Always looking to try and improve. Walk/hike daily but very fragile. If turn too fast can have a lot of problems for a week. Must be careful how he sits, moves, bend over, etc. Gets numbness in the legs and into the feet when hurts self. Hopes to be able to strengthen muscle groups to stabilize core. Laser surgery to remove 2 portions of disc and remove bone spurs in the lumbar spine somewhere in [facility] for lumbar region ~ 6yrs ago and restored ability to walk. Accupuncture helped to relax for the hour, Tramadol was very helpful. Prior Treatments and Tests Has had physical therapy and variable treatments. Just came from [place] and just had EStim and massage . Like the EStim. After surgery in [facility] had therapy ex's, and ES, massage, heat. Developmental History Developmental History Kids age 27, 23 & two 4 yr olds. Couldn't carry first 2 kids. 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 Treatment Goals Patient/Caregiver Goals Learn how to take care of the body and strengthen the core. Make him more resilient to situations and help him to be able to do more with his 4 yr old. Would love to do gardening. 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 Sometimes must ask for help to lift heavy objects and heavy objects putting away above head. Current Functional Impairments (Reported) Functional Limitations- ADL's Difficulty bending over, must be careful picking up children . Can't run Personal Factors Other Personal Factors That May Effect Has 4 yr old twins. Therapy/Recovery Decade long history of back pain and surgeries. PT-OP-C Subjective Start: 08/30/21 20:11 Freq: Status: Active Protocol: Document 11/08/21 13:01 LRN (Rec: 11/08/21 13:51 LRN [id number]) OP-PT Subjective Patient Comments Patient Comments L deep hip stretch. Didn't make it to the gym today. Had a bad incident with his back, kind of tweeked his back. Was lifting his son and yesterday he layed partly reclined while waiting for his daughter to be seen for an ear infection. [place] the [place] 3[place]5 miles to help his back out. In process of moving into a new home in . [place] good after last session . PT-OP-G Mobility & Gait Start: 08/30/21 20:11 Freq: Status: Active Protocol: Document 09/05/21 08:09 LRN (Rec: 09/05/21 12:06 LRN [id number]) OP Gait Assessment Gait Gait Assistance Required: Independent Able to Maintain Weight Bearing Status Yes During Gait Assistive Devices Assistive Device None Comments Gait Comments Trendelenburg lean to the R. PT-OP-J Posture/Palpation/Skin Start: 08/30/21 20:11 Freq: Status: Active Protocol: Document 09/05/21 08:09 LRN (Rec: 09/05/21 12:06 LRN [id number]) Posture Evaluation Position Standing L-Spine Posture Increased Lordosis Shoulder Posture (L) Elevated Pelvis Posture Anteriorly Tilted Comments Posture Comments L leg a little atrophy, L lower paraspinals mild atrophy . L foot slightly ER'd Palpation Assessment Location Low Back Palpation Location Decreased tone at L lower paraspinals. PT-OP-K Range of Motion Start: 08/30/21 20:11 Freq: Status: Active Protocol: Document 11/04/21 12:45 LRN (Rec: 11/04/21 14:38 LRN [id number]) Hip Goniometric Range of Motion Hip Right Passive Hip ROM WFL No Testing Position Supine Straight Leg Raise 85 Internal Rotation 20 External Rotation 55 Left Passive Hip ROM WFL No Testing Position Supine Straight Leg Raise 65 External Rotation 65 Comments IR is -10 deg's PT-OP-L Special Tests Start: 08/30/21 20:11 Freq: Status: Active Protocol: Document 09/05/21 08:09 LRN (Rec: 09/05/21 12:06 LRN [id number]) Special Tests Lumbar Spine Special Tests [place] Test Results + bilaterally Straight Leg Raise Test Results 85 R, 60 L Standing Flexion Test Results + Comments LLB/LLE pain Vertical Spine Loading Test Results - Comments No pain, pt went into extension PT-OP-M Strength Start: 08/30/21 20:11 Freq: Status: Active Protocol: Document 11/04/21 12:45 LRN (Rec: 11/04/21 14:38 LRN [id number]) Hip Strength Hip Manual Muscle Testing Right Flexion (L2) 5 Normal Extension (S1) 3+ Fair+ Abduction 5 Normal Adduction 5 Normal External Rotation 5 Normal Internal Rotation 5 Normal Left Flexion (L2) 3 Fair Extension (S1) 3 Fair Abduction 5 Normal Adduction 3+ Fair+ External Rotation 3 Fair Internal Rotation 5 Normal PT-OP-Q Treatments Start: 08/30/21 20:11 Freq: Status: Active Protocol: Document 11/08/21 13:01 LRN (Rec: 11/08/21 13:51 LRN [id number]) Cardio Equipment Bicycle (Upright) Duration (Minutes) 8 Resistance 6 Seat Position 9 Therapeutic Exercises Supine Exercises Bridging Supine Exercise Name Bridging Reps/Minutes 15x Fig 4 stretch Supine Exercise Name Fig 4 (added to HEP) Side bilateral Reps/Minutes 2x L, 1x R Comments limited more L than R, improved post manual. Hip ER ROM taken Bug Supine Exercise Name Bug: UE/ LE ext, same side & opp side. Side bilateral Resistance AROM>#2 DB BUE/#2 leg wt BLEs (felt more strain L post hip/ SI) Reps/Minutes x10 AROM ok core/ tiring, x8 reps 2# small range weighted Comments cued slow pacing and tolerant range ext to allow no LB/ hip recruitment LTR Supine Exercise Name Lower trunk rotation long leg over opp straight leg stretch Side bilateral Equipment Used Long legged, arms out to side T Reps/Minutes 30 x3 Comments cued try keep shlds toward floor- more flex to R then L HS Stretch Supine Exercise Name Hamstring/LE neural stretch - HEP Side bilateral Resistance pillow under head Equipment Used grasp behind thigh Reps/Minutes 2 x 60 ea Piriformis Stretch Supine Exercise Name Piriformis - HEP Side bilateral Reps/Minutes 2 x 60 ea Comments Used hands to pull knee up to chest, hip IR ROM taken SKTC Supine Exercise Name SKTC w/ AP - HEP Side bilateral Equipment Used pillow under head Reps/Minutes 2 x 60 ea Prone Exercises scorpion LS rotation stretch Prone Exercise Name DC'd from HEP/Rx Plank Prone Exercise Name elbows/feet, reviewed self HEP started back up Reps/Minutes 93 (33) Comments cued glut and PPT fac to allow pelvis support elevated alignment Sidelying Exercises Hip AB/AD Sidelying Exercise Name Hip AB/AD Side bilateral Reps/Minutes 1x each Comments MMT taken Other Exercises Quadruped Other Exercise Name Opposite UE/LE Ext lifts - HEP Side bilateral Reps/Minutes 10SH x 5 reps Comments slow progress ROM tolerant stab w/ core fac Manual Therapy Treatment Soft Tissue Mobilization iliopsoas Body Location Bilateral Mobilization Type Sustained Pressure,Trigger Point Release Intensity/Depth Moderate Body Position Hooklying Comments Manual with breath, good hip and LB releases reported PT-OP-R Modalities Start: 08/30/21 20:11 Freq: Status: Active Protocol: Document 09/09/21 14:36 NB (Rec: 09/09/21 18:37 [facility] [id number]) Hot Pack/Cold Pack Treatment Cold Pack Location Lumbar and L glute Patient Position Prone Treatment Duration (minutes) 10 Patient Tolerance Good Comments lumbar cold pack PT-OP-T Assessment and Plan Start: 08/30/21 20:11 Freq: Status: Active Protocol: Document 11/08/21 13:01 LRN (Rec: 11/08/21 13:51 LRN [id number]) Physical Therapy Assessment Goals Three Impairment Strength Short Term Goal (STG) Lift a little more weight 11/01/21: progressing ability to lift 10-15# ball with rotations standing and added UEs 10# curls, 3# DB ABD self HEP. STG Duration 11/19/21 progressin11/01/21 Detention Goal (LTG) Improve core strength. 11/01/21: progressing: is compliant with core HEP, able to lift daughter and son with less back discomfort. Noted hiking up inclines getting easier. But feels still need be cautious with reaching out away from body and gym exercises proper alignement due to R SI/ LB will tell him vulnerable. LTG Duration 12/06/21 progressing 11/01/21 Two Impairment Decreased mobility due to back L hip/LE pain. Impairment Pt requires ~ 1 week of recovery when he flares up his back. Pt has L LB/buttock pain and sometimes LE/foot pain when reaching outward to do activities. Short Term Goal (STG) Improve pt ability to be more resilient to mobility situations (recovery time < 24 hrs with a flare up). 10/02/21: progressing: states getting more resilent with recovery, better self aware of core fac to support LBP. 10/22/21: having pain when sit talking to someone in rotation , doesn't go a day without pain. Pain rotation giving cast iron pot to someone. STG Duration progressin10/22/21 Pocket Maker Goal (LTG) Pt will be able to have greater tolerance to reaching away from body and therefore able to do more with his 4 yr olds. 10/02/21: progressing: getting better is focused on positioning pulling out water hose and reaching in car to give core support. 10/22/21: can lift/carry kids 45 -50# but only if close to body but reaching to buckle them in or pick something off floor does me in. 11/04/21: Can buckle kids if moving properly and not staying in the position too long. Can package pick up light items off the floor). LTG Duration 12/06/21 11/04/21: Partially met goal One Impairment Lacks appropriage HEP Short Term Goal (STG) Pt educated in Proper body mechanics for daily activities and possibly be able to help with gardening. STG Duration 09/13/21 (09/13/21: MET GOAL) Detention Goal (LTG) Pt will be educated in a self care HEP of core/hip mobility and strengthening exercises. (09/13/21: HEP: hip mobility ex's) 09/24/21: Initiated self STMs ball wall, rolling pin, quadruped UE/ LE ext, cat camel. 10/02/21: added downward dog, toe raises back to wall, LS rotation. 10/14/21/reviewed 10/22/21: added bug, core trunk rotation wt ball. 10/29/21: added LTR long leg, prone scorpion LS rotation. 11/01/21: added Fig 4 LTG Duration 12/06/21 (11/01/21: Progressed) Assessment Summary Assessment Pt finds scorpion stretch to be on edge of causing LBP; therefore will DC from pt's HEP. L iliopsoas release was more difficult than R side. Pt felt much better after therapy with ability to move hips in [place] (in standing) without pain complaints. Pt rebounding more quickly from LB tweeks. Physical Therapy Plan Frequency and Duration Frequency of Treatment 2x/Week Plan of Care Start Date 09/05/21 Plan of Care End Date 12/06/21 Next Visit Focus/Plan Next Note Type Treatment Note Next Visit Plan Check progress towards goals. Next tx: Manual contract relax assist releases (L hip IR, ER, hamstring) and add doorway ITB and QL stretch. Recheck body mechanics car, & gym lifting. Continue hip flexor stretching with functional core, and L hip strengthening. Continue manual Iliopsoas release, add IR/ ER hip rotation stretches and strengthening for LLE. Pt education on proper gait, self care and home exercises. Progress core strengthening. Manual lumbar traction as needed. POC: Focus on core/pelvic/hip stabilization and improve L hip mobility & fascial mobility lumbar/L hip. As needed, decrease soft tissue muscle guarding and pain.
--- NOTE | 2021-11-11 17:17 | PT.OTN ---
Current Diagnoses Low back pain, unspecified (11/11/21) Physical Therapy Treatment Note PT-OP-A Visit Information Start: 08/30/21 20:11 Freq: Status: Active Protocol: Document 11/11/21 10:34 LRN (Rec: 11/11/21 11:20 LRN [id number]) Out-Patient Physical Therapy Visit Information Visit Information Visit Type Treatment Note Visit Start Time 10:35 Visit Stop Time 11:17 Total Visit Minutes 42 Visit Number 15 Evaluation Information Evaluation Date 09/05/21 PT-OP-B Current Condition Start: 08/30/21 20:11 Freq: Status: Active Protocol: Document 09/05/21 08:09 LRN (Rec: 09/05/21 12:06 LRN [id number]) Current Condition History of Current Condition Onset Date Few weeks ago. Current Complaints Pn primarily in L LB>buttock> lateral leg into big toe, little in umbilicus History of Current Condition Frequent flared up episodes of back pain that worsens for ~ 1 week. Currently in a stable place in his back. Decades of history of back pain. Always looking to try and improve. Walk/hike daily but very fragile. If turn too fast can have a lot of problems for a week. Must be careful how he sits, moves, bend over, etc. Gets numbness in the legs and into the feet when hurts self. Hopes to be able to strengthen muscle groups to stabilize core. Laser surgery to remove 2 portions of disc and remove bone spurs in the lumbar spine somewhere in [facility] for lumbar region ~ 6yrs ago and restored ability to walk. Accupuncture helped to relax for the hour, Tramadol was very helpful. Prior Treatments and Tests Has had physical therapy and variable treatments. Just came from [place] and just had EStim and massage . Like the EStim. After surgery in [facility] had therapy ex's, and ES, massage, heat. Developmental History Developmental History Kids age 27, 23 & two 4 yr olds. Couldn't carry first 2 kids. 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 Treatment Goals Patient/Caregiver Goals Learn how to take care of the body and strengthen the core. Make him more resilient to situations and help him to be able to do more with his 4 yr old. Would love to do gardening. 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 Sometimes must ask for help to lift heavy objects and heavy objects putting away above head. Current Functional Impairments (Reported) Functional Limitations- ADL's Difficulty bending over, must be careful picking up children . Can't run Personal Factors Other Personal Factors That May Effect Has 4 yr old twins. Therapy/Recovery Decade long history of back pain and surgeries. PT-OP-C Subjective Start: 08/30/21 20:11 Freq: Status: Active Protocol: Document 11/11/21 10:34 LRN (Rec: 11/11/21 11:20 LRN [id number]) OP-PT Subjective Patient Comments Patient Comments States he felt good after therapy, but went somewhere ( same day or day later) and getting out of the car had agonizing pain in the L hip when rotating to get out of the car. Has been tight in L gluteals and low back. Today pain in L hip/LB and down lateral leg to the foot, is 4/ 10. Continues to feel stronger in upper body. Feels he did a lot this weekend, did a little more with upper body because he is moving. Did 30' on the TM today at gym. Yesterday his 4 yo son was on a climbing apparatus and he jumped into his arms w/o incident, so he is feeling he is getting much stronger. PT-OP-G Mobility & Gait Start: 08/30/21 20:11 Freq: Status: Active Protocol: Document 09/05/21 08:09 LRN (Rec: 09/05/21 12:06 LRN [id number]) OP Gait Assessment Gait Gait Assistance Required: Independent Able to Maintain Weight Bearing Status Yes During Gait Assistive Devices Assistive Device None Comments Gait Comments Trendelenburg lean to the R. PT-OP-J Posture/Palpation/Skin Start: 08/30/21 20:11 Freq: Status: Active Protocol: Document 09/05/21 08:09 LRN (Rec: 09/05/21 12:06 LRN [id number]) Posture Evaluation Position Standing L-Spine Posture Increased Lordosis Shoulder Posture (L) Elevated Pelvis Posture Anteriorly Tilted Comments Posture Comments L leg a little atrophy, L lower paraspinals mild atrophy . L foot slightly ER'd Palpation Assessment Location Low Back Palpation Location Decreased tone at L lower paraspinals. PT-OP-K Range of Motion Start: 08/30/21 20:11 Freq: Status: Active Protocol: Document 11/04/21 12:45 LRN (Rec: 11/04/21 14:38 LRN [id number]) Hip Goniometric Range of Motion Hip Right Passive Hip ROM WFL No Testing Position Supine Straight Leg Raise 85 Internal Rotation 20 External Rotation 55 Left Passive Hip ROM WFL No Testing Position Supine Straight Leg Raise 65 External Rotation 65 Comments IR is -10 deg's PT-OP-L Special Tests Start: 08/30/21 20:11 Freq: Status: Active Protocol: Document 09/05/21 08:09 LRN (Rec: 09/05/21 12:06 LRN [id number]) Special Tests Lumbar Spine Special Tests [place] Test Results + bilaterally Straight Leg Raise Test Results 85 R, 60 L Standing Flexion Test Results + Comments LLB/LLE pain Vertical Spine Loading Test Results - Comments No pain, pt went into extension PT-OP-M Strength Start: 08/30/21 20:11 Freq: Status: Active Protocol: Document 11/04/21 12:45 LRN (Rec: 11/04/21 14:38 LRN [id number]) Hip Strength Hip Manual Muscle Testing Right Flexion (L2) 5 Normal Extension (S1) 3+ Fair+ Abduction 5 Normal Adduction 5 Normal External Rotation 5 Normal Internal Rotation 5 Normal Left Flexion (L2) 3 Fair Extension (S1) 3 Fair Abduction 5 Normal Adduction 3+ Fair+ External Rotation 3 Fair Internal Rotation 5 Normal PT-OP-Q Treatments Start: 08/30/21 20:11 Freq: Status: Active Protocol: Document 11/11/21 10:34 LRN (Rec: 11/11/21 11:20 LRN [id number]) Cardio Equipment Bicycle (Upright) Duration (Minutes) 9 Resistance 6 Seat Position 9 Other 5.2 miles, 90 RPMs Therapeutic Exercises Supine Exercises Bridging Supine Exercise Name Bridging Reps/Minutes 15x Fig 4 stretch Supine Exercise Name Fig 4 (added to HEP) Side bilateral Reps/Minutes 2x L, 1x R, 60 Holds Comments limited more L than R, improved post manual. Hip ER ROM taken Bug Supine Exercise Name Bug: UE/ LE ext, same side & opp side. Side bilateral Resistance AROM>#2 DB BUE/#2 leg wt BLEs (felt more strain L post hip/ SI) Reps/Minutes x10 AROM ok core/ tiring, x8 reps 2# small range weighted Comments cued slow pacing and tolerant range ext to allow no LB/ hip recruitment Prone Exercises Hip Ext Prone Exercise Name Hip Ext Side bilateral Reps/Minutes 10x Comments MMT taken. L weaker than R. Plank Prone Exercise Name elbows/feet, reviewed self HEP started back up Reps/Minutes 93 (1'33) Comments cued glut and PPT fac to allow pelvis support elevated alignment Standing Exercises ITBand/QL stretch Standing Exercise Name IT Band/QL stretch Side bilateral Reps/Minutes 3' Comments Extra time to determine max tolerated stretch. Other Exercises child's pose Other Exercise Name viewed self stretch Reps/Minutes 30 stretch Comments good form, limited sitting onto heels demosrtrated. 1/2 knee hip flexor stretch Other Exercise Name 1/2 knee hip flexor stretch: same UE reach OH Side bilateral Equipment Used blue mat and step stool handle contact Reps/Minutes 10 & 30 SH x2 Comments good feedback stretch Quadruped Other Exercise Name Opposite UE/LE Ext lifts - HEP Side bilateral Reps/Minutes 10SH x 5 reps Comments slow progress ROM tolerant stab w/ core fac Manual Therapy Treatment Manual Traction Low Back Details Manual LB traction Body Position Hooklying Reps/Duration 10SH x 10 Comments Decrease in L lateral LE pain. Reminent of tingling in feet , no pain in LLE and hip, slight tension in LB. PT-OP-R Modalities Start: 08/30/21 20:11 Freq: Status: Active Protocol: Document 09/09/21 14:36 NBM (Rec: 09/09/21 18:37 NB [id number]) Hot Pack/Cold Pack Treatment Cold Pack Location Lumbar and L glute Patient Position Prone Treatment Duration (minutes) 10 Patient Tolerance Good Comments lumbar cold pack PT-OP-T Assessment and Plan Start: 08/30/21 20:11 Freq: Status: Active Protocol: Document 11/11/21 10:34 LRN (Rec: 11/11/21 11:20 LRN [id number]) Physical Therapy Assessment Goals Three Impairment Strength Short Term Goal (STG) Lift a little more weight 11/01/21: progressing ability to lift 10-15# ball with rotations standing and added UEs 10# curls, 3# DB ABD self HEP. STG Duration 11/19/21 progressin11/01/21 Snf Goal (LTG) Improve core strength. 11/01/21: progressing: is compliant with core HEP, able to lift daughter and son with less back discomfort. Noted hiking up inclines getting easier. But feels still need be cautious with reaching out away from body and gym exercises proper alignement due to R SI/ LB will tell him vulnerable. LTG Duration 12/06/21 progressing 11/01/21 Two Impairment Decreased mobility due to back L hip/LE pain. Impairment Pt requires ~ 1 week of recovery when he flares up his back. Pt has L LB/buttock pain and sometimes LE/foot pain when reaching outward to do activities. Short Term Goal (STG) Improve pt ability to be more resilient to mobility situations (recovery time < 24 hrs with a flare up). 10/02/21: progressing: states getting more resilent with recovery, better self aware of core fac to support LBP. 10/22/21: having pain when sit talking to someone in rotation , doesn't go a day without pain. Pain rotation giving cast iron pot to someone. STG Duration progressin10/22/21 Snf Goal (LTG) Pt will be able to have greater tolerance to reaching away from body and therefore able to do more with his 4 yr olds. 10/02/21: progressing: getting better is focused on positioning pulling out water hose and reaching in car to give core support. 10/22/21: can lift/carry kids 45 -50# but only if close to body but reaching to buckle them in or pick something off floor does me in. 11/04/21: Can buckle kids if moving properly and not staying in the position too long. Can car pick up driver light items off the floor). LTG Duration 12/06/21 11/04/21: Partially met goal One Impairment Lacks appropriage HEP Short Term Goal (STG) Pt educated in Proper body mechanics for daily activities and possibly be able to help with gardening. STG Duration 09/13/21 (09/13/21: MET GOAL) Swimming Pool Maintenance Supervisor Goal (LTG) Pt will be educated in a self care HEP of core/hip mobility and strengthening exercises. (09/13/21: HEP: hip mobility ex's) 8/9/22: Initiated self STMs ball wall, rolling pin, quadruped UE/ LE ext, cat camel. 10/02/21: added downward dog, toe raises back to wall, LS rotation. 10/14/21/reviewed 10/22/21: added bug, core trunk rotation wt ball. 10/29/21: added LTR long leg, prone scorpion LS rotation. 11/01/21: added Fig 4 LTG Duration 12/06/21 (11/01/21: Progressed) Assessment Summary Assessment Held assessmen to goals due to flare up. Pt had + response to manual lumbar traction. Pt needed cuing to move more slowly with bug due to complaints of popping with movement of legs. Held contract/relax stretching due to increase in L hip/LB pain. Physical Therapy Plan Frequency and Duration Frequency of Treatment 2x/Week Plan of Care Start Date 09/05/21 Plan of Care End Date 12/06/21 Next Visit Focus/Plan Next Note Type Treatment Note Next Visit Plan Check progress towards goals. Next tx: Manual contract relax assist releases (L hip IR, ER, hamstring) and review/ issue doorway ITB and QL stretch. Recheck body mechanics car, & gym lifting. Continue hip flexor stretching with functional core, and L hip strengthening. Continue manual Iliopsoas release. Add IR/ ER hip rotation stretches and strengthening for LLE. Pt education on proper gait, self care and home exercises. Progress core strengthening. Manual lumbar traction as needed. POC: Focus on core/pelvic/hip stabilization and improve L hip mobility & fascial mobility lumbar/L hip. As needed, decrease soft tissue muscle guarding and pain.
--- NOTE | 2021-11-15 09:45 | PT.OTN ---
Current Diagnoses Low back pain, unspecified (11/15/21) Physical Therapy Treatment Note PT-OP-A Visit Information Start: 08/30/21 20:11 Freq: Status: Active Protocol: Document 11/15/21 09:04 SP (Rec: 11/15/21 09:49 SP [id number]) Out-Patient Physical Therapy Visit Information Visit Information Visit Type Treatment Note Visit Note Pulse 90-94 bpm Visit Start Time 09:04 Visit Stop Time 09:45 Total Visit Minutes 41 Visit Number 16 Number of [employer] Visits 1 Evaluation Information Evaluation Date 09/05/21 PT-OP-B Current Condition Start: 08/30/21 20:11 Freq: Status: Active Protocol: Document 09/05/21 08:09 LRN (Rec: 09/05/21 12:06 LRN [id number]) Current Condition History of Current Condition Onset Date Few weeks ago. Current Complaints Pn primarily in L LB>buttock> lateral leg into big toe, little in umbilicus History of Current Condition Frequent flared up episodes of back pain that worsens for ~ 1 week. Currently in a stable place in his back. Decades of history of back pain. Always looking to try and improve. Walk/hike daily but very fragile. If turn too fast can have a lot of problems for a week. Must be careful how he sits, moves, bend over, etc. Gets numbness in the legs and into the feet when hurts self. Hopes to be able to strengthen muscle groups to stabilize core. Laser surgery to remove 2 portions of disc and remove bone spurs in the lumbar spine somewhere in [facility] for lumbar region ~ 6yrs ago and restored ability to walk. Accupuncture helped to relax for the hour, Tramadol was very helpful. Prior Treatments and Tests Has had physical therapy and variable treatments. Just came from [place] and just had EStim and massage . Like the EStim. After surgery in [facility] had therapy ex's, and ES, massage, heat. Developmental History Developmental History Kids age 27, 23 & two 4 yr olds. Couldn't carry first 2 kids. 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 Treatment Goals Patient/Caregiver Goals Learn how to take care of the body and strengthen the core. Make him more resilient to situations and help him to be able to do more with his 4 yr old. Would love to do gardening. 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 Sometimes must ask for help to lift heavy objects and heavy objects putting away above head. Current Functional Impairments (Reported) Functional Limitations- ADL's Difficulty bending over, must be careful picking up children . Can't run Personal Factors Other Personal Factors That May Effect Has 4 yr old twins. Therapy/Recovery Decade long history of back pain and surgeries. PT-OP-C Subjective Start: 08/30/21 20:11 Freq: Status: Active Protocol: Document 11/15/21 09:04 SP (Rec: 11/15/21 09:49 SP [id number]) OP-PT Subjective Patient Comments Patient Comments Pt stated has been lifting but not heavy and bending over emptying boxes. Was able to do rotation 15# med ball and plank increase time without pain so seeing improvements in strength. Pt reports few tx ago when worked on hip IR/ER was pretty uncomfortable and had hard time getting out of car, suprised how limited is in L hip IR>ER and wonder if contributes to hip/back pain. PT-OP-G Mobility & Gait Start: 08/30/21 20:11 Freq: Status: Active Protocol: Document 09/05/21 08:09 LRN (Rec: 09/05/21 12:06 LRN [id number]) OP Gait Assessment Gait Gait Assistance Required: Independent Able to Maintain Weight Bearing Status Yes During Gait Assistive Devices Assistive Device None Comments Gait Comments Trendelenburg lean to the R. PT-OP-J Posture/Palpation/Skin Start: 08/30/21 20:11 Freq: Status: Active Protocol: Document 09/05/21 08:09 LRN (Rec: 09/05/21 12:06 LRN [id number]) Posture Evaluation Position Standing L-Spine Posture Increased Lordosis Shoulder Posture (L) Elevated Pelvis Posture Anteriorly Tilted Comments Posture Comments L leg a little atrophy, L lower paraspinals mild atrophy . L foot slightly ER'd Palpation Assessment Location Low Back Palpation Location Decreased tone at L lower paraspinals. PT-OP-K Range of Motion Start: 08/30/21 20:11 Freq: Status: Active Protocol: Document 11/04/21 12:45 LRN (Rec: 11/04/21 14:38 LRN [id number]) Hip Goniometric Range of Motion Hip Right Passive Hip ROM WFL No Testing Position Supine Straight Leg Raise 85 Internal Rotation 20 External Rotation 55 Left Passive Hip ROM WFL No Testing Position Supine Straight Leg Raise 65 External Rotation 65 Comments IR is -10 deg's PT-OP-L Special Tests Start: 08/30/21 20:11 Freq: Status: Active Protocol: Document 09/05/21 08:09 LRN (Rec: 09/05/21 12:06 LRN [id number]) Special Tests Lumbar Spine Special Tests [place] Test Results + bilaterally Straight Leg Raise Test Results 85 R, 60 L Standing Flexion Test Results + Comments LLB/LLE pain Vertical Spine Loading Test Results - Comments No pain, pt went into extension PT-OP-M Strength Start: 08/30/21 20:11 Freq: Status: Active Protocol: Document 11/04/21 12:45 LRN (Rec: 11/04/21 14:38 LRN [id number]) Hip Strength Hip Manual Muscle Testing Right Flexion (L2) 5 Normal Extension (S1) 3+ Fair+ Abduction 5 Normal Adduction 5 Normal External Rotation 5 Normal Internal Rotation 5 Normal Left Flexion (L2) 3 Fair Extension (S1) 3 Fair Abduction 5 Normal Adduction 3+ Fair+ External Rotation 3 Fair Internal Rotation 5 Normal PT-OP-Q Treatments Start: 08/30/21 20:11 Freq: Status: Active Protocol: Document 11/15/21 09:04 SP (Rec: 11/15/21 09:49 SP [id number]) Cardio Equipment Bicycle (Upright) Duration (Minutes) 9 Resistance 6 Seat Position 9 Other 5.20 miles, 90 RPMs Therapeutic Exercises Supine Exercises Fig 4 stretch Supine Exercise Name Fig 4 (reviewed HEP) Side bilateral Reps/Minutes B 60 Holds Comments limited more L than R, improved post manual Bug Supine Exercise Name Bug: UE/ LE ext, same side & opp side.- DC loud audible R hip pop Side bilateral Resistance AROM>#2 DB BUE/#2 leg wt BLEs (felt more strain L post hip/ SI) Reps/Minutes x10 AROM ok core/ tiring, x8 reps 2# small range weighted Comments cued slow pacing and tolerant range ext to allow no LB/ hip recruitment Sitting Exercises QL stretch Sitting Exercise Name added to HEP Side bilateral Resistance L>R Standing Exercises lunge trunk rotation Standing Exercise Name trialed walk lunge w/trunk rotation OH reach but L knee pained so stopped Reps/Minutes x3 reps Comments Cued limit L knee flexion, stopped after 3 reps due to knee and L SI pain squat press outs Standing Exercise Name trialed for funtional strengthening ROM Resistance B 3.5 # wt ball vs 6# DB x1 held in BUE Reps/Minutes x20 reps Comments cued hip hinge hover chair Manual Therapy Treatment Soft Tissue Mobilization iliopsoas Body Location Bilateral Mobilization Type Sustained Pressure,Trigger Point Release Intensity/Depth Moderate Body Position Hooklying Comments Manual with breath, good hip and LB releases reported Hip Body Location L hip IR/ ER contract relax Mobilization Type Strumming,Sustained Pressure, Trigger Point Release Intensity/Depth Moderate Body Position Prone Comments prone STMs then contract relax B hip IR/ ER: good feedback releases and increase ROM, very limited L IR> ER, improved fig 4 ER post manual (didn't measure). PT-OP-R Modalities Start: 08/30/21 20:11 Freq: Status: Active Protocol: Document 09/09/21 14:36 NBM (Rec: 09/09/21 18:37 NBM [id number]) Hot Pack/Cold Pack Treatment Cold Pack Location Lumbar and L glute Patient Position Prone Treatment Duration (minutes) 10 Patient Tolerance Good Comments lumbar cold pack PT-OP-T Assessment and Plan Start: 08/30/21 20:11 Freq: Status: Active Protocol: Document 11/15/21 09:04 SP (Rec: 11/15/21 09:49 SP [id number]) Physical Therapy Assessment Goals Three Impairment Strength Short Term Goal (STG) Lift a little more weight 11/01/21: progressing ability to lift 10-15# ball with rotations standing and added UEs 10# curls, 3# DB ABD self HEP. STG Duration 11/19/21 progressin11/01/21 Senior Care Goal (LTG) Improve core strength. 11/01/21: progressing: is compliant with core HEP, able to lift daughter and son with less back discomfort. Noted hiking up inclines getting easier. But feels still need be cautious with reaching out away from body and gym exercises proper alignement due to R SI/ LB will tell him vulnerable. LTG Duration 12/06/21 progressing 11/01/21 Two Impairment Decreased mobility due to back L hip/LE pain. Impairment Pt requires ~ 1 week of recovery when he flares up his back. Pt has L LB/buttock pain and sometimes LE/foot pain when reaching outward to do activities. Short Term Goal (STG) Improve pt ability to be more resilient to mobility situations (recovery time < 24 hrs with a flare up). 10/02/21: progressing: states getting more resilent with recovery, better self aware of core fac to support LBP. 10/22/21: having pain when sit talking to someone in rotation , doesn't go a day without pain. Pain rotation giving cast iron pot to someone. STG Duration progressin10/22/21 Hospital Attendant Goal (LTG) Pt will be able to have greater tolerance to reaching away from body and therefore able to do more with his 4 yr olds. 10/02/21: progressing: getting better is focused on positioning pulling out water hose and reaching in car to give core support. 10/22/21: can lift/carry kids 45 -50# but only if close to body but reaching to buckle them in or pick something off floor does me in. 11/04/21: Can buckle kids if moving properly and not staying in the position too long. Can cook pickled meat light items off the floor). LTG Duration 12/06/21 11/04/21: Partially met goal One Impairment Lacks appropriage HEP Short Term Goal (STG) Pt educated in Proper body mechanics for daily activities and possibly be able to help with gardening. STG Duration 09/13/21 (09/13/21: MET GOAL) Senior Care Goal (LTG) Pt will be educated in a self care HEP of core/hip mobility and strengthening exercises. (09/13/21: HEP: hip mobility ex's) 09/24/21: Initiated self STMs ball wall, rolling pin, quadruped UE/ LE ext, cat camel. 10/02/21: added downward dog, toe raises back to wall, LS rotation. 10/14/21/reviewed 10/22/21: added bug, core trunk rotation wt ball. 10/29/21: added LTR long leg, prone scorpion LS rotation. 11/01/21: added Fig 4 LTG Duration 12/06/21 (11/01/21: Progressed) Assessment Summary Assessment Pt responded well to manual iliopsoas, reduced LB tension. That really helps release my back tension. Pt responded well to squat modified OH press to assimulate picking up child through functional strengthening core/ hip. Physical Therapy Plan Frequency and Duration Frequency of Treatment 2x/Week Plan of Care Start Date 09/05/21 Plan of Care End Date 12/06/21 Therapeutic Interventions Therapeutic Interventions Home Exercise Program,Joint Mobilizations,Manual Therapy, Patient/Caregiver Education, Self-Care/Home Management,Soft Tissue Mobilization,Taping, Therapeutic Activities, Therapeutic Exercises Modalities Cold Pack/Ice Massage,Electric Stimulation,Hot Packs, Traction- Mechanical, Ultrasound Next Visit Focus/Plan Next Note Type Treatment Note Next Visit Plan Check progress towards goals. Next tx: Manual contract relax assist releases (L hip IR, ER, hamstring) and review/ issue doorway ITB and QL stretch. Recheck body mechanics car, & gym lifting. Continue hip flexor stretching with functional core, and L hip strengthening. Continue manual Iliopsoas release. Add IR/ ER hip rotation stretches and strengthening for LLE. Pt education on proper gait, self care and home exercises. Progress core strengthening. Manual lumbar traction as needed. POC: Focus on core/pelvic/hip stabilization and improve L hip mobility & fascial mobility lumbar/L hip. As needed, decrease soft tissue muscle guarding and pain.
--- NOTE | 2021-11-21 17:12 | PT.OTN ---
Current Diagnoses Low back pain, unspecified (11/21/21) Physical Therapy Treatment Note PT-OP-A Visit Information Start: 08/30/21 20:11 Freq: Status: Active Protocol: Document 11/21/21 09:49 LRN (Rec: 11/21/21 10:36 LRN [id number]) Out-Patient Physical Therapy Visit Information Visit Information Visit Type Treatment Note Visit Start Time 09:49 Visit Stop Time 10:33 Total Visit Minutes 44 Visit Number Evaluation Information Evaluation Date 09/05/21 PT-OP-B Current Condition Start: 08/30/21 20:11 Freq: Status: Active Protocol: Document 09/05/21 08:09 LRN (Rec: 09/05/21 12:06 LRN [id number]) Current Condition History of Current Condition Onset Date Few weeks ago. Current Complaints Pn primarily in L LB>buttock> lateral leg into big toe, little in umbilicus History of Current Condition Frequent flared up episodes of back pain that worsens for ~ 1 week. Currently in a stable place in his back. Decades of history of back pain. Always looking to try and improve. Walk/hike daily but very fragile. If turn too fast can have a lot of problems for a week. Must be careful how he sits, moves, bend over, etc. Gets numbness in the legs and into the feet when hurts self. Hopes to be able to strengthen muscle groups to stabilize core. Laser surgery to remove 2 portions of disc and remove bone spurs in the lumbar spine somewhere in [facility] for lumbar region ~ 6yrs ago and restored ability to walk. Accupuncture helped to relax for the hour, Tramadol was very helpful. Prior Treatments and Tests Has had physical therapy and variable treatments. Just came from [facility] and just had EStim and massage . Like the EStim. After surgery in [facility] had therapy ex's, and ES, massage, heat. Developmental History Developmental History Kids age 27, 23 & two 4 yr olds. Couldn't carry first 2 kids. 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 Treatment Goals Patient/Caregiver Goals Learn how to take care of the body and strengthen the core. Make him more resilient to situations and help him to be able to do more with his 4 yr old. Would love to do gardening. 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 Sometimes must ask for help to lift heavy objects and heavy objects putting away above head. Current Functional Impairments (Reported) Functional Limitations- ADL's Difficulty bending over, must be careful picking up children . Can't run Personal Factors Other Personal Factors That May Effect Has 4 yr old twins. Therapy/Recovery Decade long history of back pain and surgeries. PT-OP-C Subjective Start: 08/30/21 20:11 Freq: Status: Active Protocol: Document 11/21/21 09:49 LRN (Rec: 11/21/21 10:36 LRN [id number]) OP-PT Subjective Patient Comments Patient Comments In-laws are visiting for a month. States at his new house he was stepping into the shoulder and his foot hit the ledge and his L shoulder hit the wall. His neck felt the discomfort the most. Back is okay. Yesterday did a fast hike and can now do it with greater ease. States he is setting up his home gym in his new home. PT-OP-G Mobility & Gait Start: 08/30/21 20:11 Freq: Status: Active Protocol: Document 09/05/21 08:09 LRN (Rec: 09/05/21 12:06 LRN [id number]) OP Gait Assessment Gait Gait Assistance Required: Independent Able to Maintain Weight Bearing Status Yes During Gait Assistive Devices Assistive Device None Comments Gait Comments Trendelenburg lean to the R. PT-OP-J Posture/Palpation/Skin Start: 08/30/21 20:11 Freq: Status: Active Protocol: Document 09/05/21 08:09 LRN (Rec: 09/05/21 12:06 LRN [id number]) Posture Evaluation Position Standing L-Spine Posture Increased Lordosis Shoulder Posture (L) Elevated Pelvis Posture Anteriorly Tilted Comments Posture Comments L leg a little atrophy, L lower paraspinals mild atrophy . L foot slightly ER'd Palpation Assessment Location Low Back Palpation Location Decreased tone at L lower paraspinals. PT-OP-K Range of Motion Start: 08/30/21 20:11 Freq: Status: Active Protocol: Document 11/04/21 12:45 LRN (Rec: 11/04/21 14:38 LRN [id number]) Hip Goniometric Range of Motion Hip Right Passive Hip ROM WFL No Testing Position Supine Straight Leg Raise 85 Internal Rotation 20 External Rotation 55 Left Passive Hip ROM WFL No Testing Position Supine Straight Leg Raise 65 External Rotation 65 Comments IR is -10 deg's PT-OP-L Special Tests Start: 08/30/21 20:11 Freq: Status: Active Protocol: Document 09/05/21 08:09 LRN (Rec: 09/05/21 12:06 LRN [id number]) Special Tests Lumbar Spine Special Tests [place] Test Results + bilaterally Straight Leg Raise Test Results 85 R, 60 L Standing Flexion Test Results + Comments LLB/LLE pain Vertical Spine Loading Test Results - Comments No pain, pt went into extension PT-OP-M Strength Start: 08/30/21 20:11 Freq: Status: Active Protocol: Document 11/04/21 12:45 LRN (Rec: 11/04/21 14:38 LRN [id number]) Hip Strength Hip Manual Muscle Testing Right Flexion (L2) 5 Normal Extension (S1) 3+ Fair+ Abduction 5 Normal Adduction 5 Normal External Rotation 5 Normal Internal Rotation 5 Normal Left Flexion (L2) 3 Fair Extension (S1) 3 Fair Abduction 5 Normal Adduction 3+ Fair+ External Rotation 3 Fair Internal Rotation 5 Normal PT-OP-Q Treatments Start: 08/30/21 20:11 Freq: Status: Active Protocol: Document 11/21/21 09:49 LRN (Rec: 11/21/21 10:36 LRN [id number]) Cardio Equipment Treadmill Duration (Minutes) 10 Speed 3.4 > 3.5 HR 90. Incline incline 1 x 5' > incline 2 x 5 ' > 1.5 x 5' Other .88 miles Therapeutic Exercises Supine Exercises Fig 4 stretch Supine Exercise Name Fig 4 (reviewed HEP) Side left Reps/Minutes B 60 Holds Comments limited L but improved, awareness not so long/stress to flare L SI LTR Supine Exercise Name Lower trunk rotation long leg over opp straight leg stretch Side bilateral Equipment Used Long legged, arms out to side T Reps/Minutes 30 x2 Comments cued try keep shlds toward floor- more flex to R then L IT Band stretch Side bilateral Equipment Used w/ strap Reps/Minutes 2 x 60 ea HS Stretch Supine Exercise Name Hamstring/LE neural stretch - HEP Side bilateral Resistance pillow under head Equipment Used grasp behind thigh Reps/Minutes 1 x 60 ea Piriformis Stretch Supine Exercise Name Piriformis - HEP Side bilateral Reps/Minutes 2 x 60 ea Comments Used hands to pull knee up to chest, hip IR ROM taken SKTC Supine Exercise Name SKTC w/ AP - HEP Side bilateral Equipment Used pillow under head Reps/Minutes 2 x 60 ea Sidelying Exercises Hip AB/AD Sidelying Exercise Name Hip AB/AD Side bilateral Reps/Minutes 10x each Sitting Exercises Hip ER Sitting Exercise Name Hip ER active strengthening - ankle over knee Side left Reps/Minutes 10x 2 Hip IR Sitting Exercise Name Hip IR AROM Reps/Minutes 10x 2 Hip ER strengthening Sitting Exercise Name Crossing ankle over knee with good posture, with & w/o assist Side left Equipment Used Gait belt to assist lift Reps/Minutes 10x Comments Good awareness of core stability w/movement of ex, needing cuing. Other Exercises child's pose Other Exercise Name viewed self stretch Reps/Minutes 30 stretch Comments good form, limited sitting onto heels demosrtrated. 1/2 knee hip flexor stretch Other Exercise Name 1/2 knee hip flexor stretch: same UE reach OH Side bilateral Equipment Used pillow on floor for knees Reps/Minutes 30 SH x2 Comments Pt able to get good stretch Quadruped Other Exercise Name Opposite UE/LE Ext lifts - HEP Side bilateral Reps/Minutes 10SH x 5 reps Comments slow progress ROM tolerant stab w/ core fac Self-Care/Home Management Treatment Education Patient Education Home Exercise Program Activities Self-Care/Home Management Activities Issued HEP: hip strengthening ex's & Lev 2 TB PT-OP-R Modalities Start: 08/30/21 20:11 Freq: Status: Active Protocol: Document 09/09/21 14:36 NBM (Rec: 09/09/21 18:37 NB [id number]) Hot Pack/Cold Pack Treatment Cold Pack Location Lumbar and L glute Patient Position Prone Treatment Duration (minutes) 10 Patient Tolerance Good Comments lumbar cold pack PT-OP-T Assessment and Plan Start: 08/30/21 20:11 Freq: Status: Active Protocol: Document 11/21/21 09:49 LRN (Rec: 11/21/21 10:36 LRN [id number]) Physical Therapy Assessment Goals Three Impairment Strength Short Term Goal (STG) Lift a little more weight 11/01/21: progressing ability to lift 10-15# ball with rotations standing and added UEs 10# curls, 3# DB ABD self HEP. 11/19: progressin# DB OH and 5# FF/ HABD, Med ball 10- 15# diagonal D1ext/D2 flexion. 11/21/21: Pt reports begin able to lift more weights. 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 11/01/21: progressing: is compliant with core HEP, able to lift daughter and son with less back discomfort. Noted hiking up inclines getting easier. But feels still need be cautious with reaching out away from body and gym exercises proper alignement due to R SI/ LB will tell him vulnerable. 11/19/21: progressing: able complete plank 1min 40 sec at gym, last PT tx 93sec. 11/21/21: Improved and able to stabilize core better. Pt able to hold plank > 1 minute. LTG Duration 12/06/21 (11/21/21: MET GOAL ) Two Impairment Decreased mobility due to back L hip/LE pain. Impairment Pt requires ~ 1 week of recovery when he flares up his back. Pt has L LB/buttock pain and sometimes LE/foot pain when reaching outward to do activities. Short Term Goal (STG) Improve pt ability to be more resilient to mobility situations (recovery time < 24 hrs with a flare up). 10/02/21: progressing: states getting more resilent with recovery, better self aware of core fac to support LBP. 10/22/21: having pain when sit talking to someone in rotation , doesn't go a day without pain. Pain rotation giving cast iron pot to someone. 11/19/21: GOAL MET: recovery 12 -24 hrs, sitting on hard chairs at event only stiff next day. STG Duration (GOAL MET: 11/19/21 ) Cnc Lathe Machine Operator Goal (LTG) Pt will be able to have greater tolerance to reaching away from body and therefore able to do more with his 4 yr olds. 10/02/21: progressing: getting better is focused on positioning pulling out water hose and reaching in car to give core support. 10/22/21: can lift/carry kids 45 -50# but only if close to body but reaching to buckle them in or pick something off floor does me in. 11/04/21: Can buckle kids if moving properly and not staying in the position too long. Can pickle solution maker light items off the floor). 11/19/21: Progessing: minisquat positioning to stand OH press FF 6-10# DBs/med bal, 3# DBs chest presses able tolerate in minisquat positioning, D2 flexion 10-15# med ball painfree. 11/21/21: Could do nothing initially and now can hold weight away from body. Can now do more with kids, can now take kids to playground and lift kids onto equipement, and can hold his children for a long time (minutes), used to be only able to lift him only to position him. LTG Duration 12/06/21 (11/21/21: MET GOAL ) One Impairment Lacks appropriage HEP Short Term Goal (STG) Pt educated in Proper body mechanics for daily activities and possibly be able to help with gardening. STG Duration 09/13/21 (09/13/21: MET GOAL) Nursing Home Goal (LTG) Pt will be educated in a self care HEP of core/hip mobility and strengthening exercises. (09/13/21: HEP: hip mobility ex's) 09/24/21: Initiated self STMs ball wall, rolling pin, quadruped UE/ LE ext, cat camel. 10/02/21: added downward dog, toe raises back to wall, LS rotation. 10/14/21/reviewed 10/22/21: added bug, core trunk rotation wt ball. 10/29/21: added LTR long leg, prone scorpion LS rotation. 11/01/21: added Fig 4 11/19/21: progressing: Progressing chest press 3# DBs at, added trunk flexion LB/QL and hip ER funtional stretch. Mini squat chest press and repeated stand<> OH press. Supine LTR. supine Tball FF and HABD 3# DBs for posterior chain and core strengthening with increase anterior chain increase lengthening hip ext. LTG Duration 12/06/21 (11/21/21: MET GOAL) Assessment Summary Assessment Pt has met all his goals and is able to tolerate endurance exercise of >15'. He is actively walking/hiking without pain, only onset of back tightness. He demonstrates good knowledge of his HEP and he feels he understands what he can do at the gym for exercises. Doorway ITB and QL stretch was not reviewed due to time constraints. The pt appears ready for discharge to his HEP and pt is agreeable. Physical Therapy Plan Discharge Physical Therapy Discharge Reasons Goals Met Discharge Comments Based on the pt's back history , physical therapy in the future would be appropriate if he is unable to recover from a back flare up on his HEP. Thank you for your referral.
== END 2021-11-22 11:56 | disposition home or self-care (01) ==
LOC: PHYS 09:45
PROVIDERS: Family Provider Physician Assistant; PCP Physician Assistant; Referring Provider Physician Assistant; Visit Provider Physician Assistant
DX: M54.50 Low back pain, unspecified (principal)
CPT/HCPCS: 97110; 97140; 97162; 97535

== ENCOUNTER → 2022-02-26 14:10 | Outpatient (CLI) | payer BC, OTHER, SELFPAY ==
--- NOTE | 2022-02-26 14:12 | DI.RAD.S_ITS ---
PROCEDURE: XR LUMBAR SPINE MIN 4V INDICATIONS: Low Back Pain TECHNIQUE: 5 views of the lumbar spine were acquired, including bilateral oblique views. COMPARISON: None. FINDINGS: Bones: 5 nonrib-bearing vertebrae are present. There is normal bony alignment. No vertebral body compression fractures. There is diffuse intervertebral disc space narrowing, endplate sclerosis and facet sclerosis. Schmorl's nodes are present at multiple levels. No suspicious bony lesions. Soft tissues: Overlying bowel gas pattern is normal. No suspicious soft tissue calcifications. Oblique images: No pars defects. IMPRESSION: Degenerative change. No spondylolysis or spondylolisthesis. Dictated by: Vy Mills M.D. on 02/26/2022 at 17:20 Approved by: Vy Mills M.D. on 02/26/2022 at 17:21
== END ==
PROVIDERS: Family Provider Physician Assistant; PCP Family Medicine; Referring Provider Anesthesiology; Visit Provider Anesthesiology
DX: M47.26 Other spondylosis with radiculopathy, lumbar region (principal); M54.50 Low back pain, unspecified; G89.29 Other chronic pain
CPT/HCPCS: 72110; 99214

== ENCOUNTER 2022-05-15 15:10 | Outpatient (CLI) | payer BC, OTHER, SELFPAY ==
--- NOTE | 2022-05-15 15:13 | DI.RAD.S_ITS ---
PROCEDURE: PAIN L INTERLAMINAR/CAUDAL INJ INDICATIONS: SPONDYLOSIS COMPARISON: None. FINDINGS: Fluoroscopic spot filming was performed to verify placement of spinal needles at the L4-5 level(s), as labeled on the films. Appropriate location(s) of the needle tip(s) was confirmed by injection of iodinated contrast. IMPRESSION: Fluoro guidance was provided intraoperatively for L4-5 translaminar epidural steroid injection performed by the ordering physician. Dictated by: Mariusz Muniz M.D. on 05/15/2022 at 22:19 Approved by: Mariusz Muniz M.D. on 05/15/2022 at 22:19
[2022-05-15 15:50] VITALS: BP 143/82; PULSE 63; RESP 20; TEMP 36.4; O2SAT 98
[2022-05-15 16:10] VITALS: BP 148/78; PULSE 55; RESP 16; O2SAT 96
[2022-05-15 16:15] VITALS: BP 158/87; PULSE 62; RESP 16; O2SAT 95
[2022-05-15 16:20] VITALS: BP 148/76; PULSE 65; RESP 20; O2SAT 97
--- NOTE | 2022-05-15 17:30 | P.PCN_ITS ---
Date/Time/Diagnoses Date of procedure: 05/15/22 Time of procedure: 16:00 Procedure Notes Physician: Kingsley Cronin Total Fluoroscopy time (seconds): 15 Total sedation minutes: 0 Procedure in detail & Post-procedure care: L4-5 Interlaminar Epidural Steroid Injection Indications: Bryan is presenting for treatment of lumbar radiculopathy with low back and leg pain. Preoperative diagnosis: Lumbar radiculopathy Postoperative diagnosis: Same Focused Examination: Ax3 Mood and affect are normal Vital Signs: VSS ASA: 2 Consent: Following review of allergies and potential side effects/complications, including, but not necessarily limited to, infection, allergic reaction, local tissue breakdown, stroke, temporary or permanent nerve injury, paralysis, and possible , the patient indicated that they understood and agreed to procee d.? An informed consent document was signed by the patient, witnessed by a nurse and placed in the patient's chart.? Additionally, other treatment options including medications and physical therapy were reviewed with the patient. All questions were answered. Site was then marked. Anesthesia: Local Position: Prone Monitoring: NIBP, Pulse oximetry, 3 lead EKG Needle used: 18 G 3.5? Tuohy Contrast: Isovue 300M Injectate: Depo-Medrol 80 mg with 0.25% Bupivacaine 2 mL Technique: The skin was prepped with chloraprep and then draped in a sterile fashion. Time out was performed as per protocol. Oxygen applied via NC. Skin and subcutaneous structures of the needle entry site was then infiltrated with 3 mL of lidocaine 1%. Under AP, lateral and contralateral oblique fluoroscopic control, the Tuohy needle was guided into the L4-5 epidural space. The space was accessed with loss of resistance technique. Isovue 300M was then injected and the spread was consistent with the epidural space. There was no evidence for in travascular or intrathecal uptake. After negative aspiration, the above- mentioned injectate was then slowly administered and the needle withdrawn. The patient expressed no unusual discomfort or paresthesias during the injection. Band-Aids applied to injection sites. EBL: less than 1 ml Complications: None Post Procedure: Patient was taken to the recovery and monitored. The patient was provided a Pain Log to continue to record the patient's response to the target- specific procedure prior to the patient's follow-up visit with the referring physician. Patient was stable upon discharge. Detailed post procedure instructions were provided. Patient was asked to call in the event of worsening pain, fever, weakness, numbness or bladder or bowel incontinence.
== END 2022-05-15 16:26 | disposition home or self-care (01) ==
PROVIDERS: Family Provider Physician Assistant; PCP Family Medicine; Referring Provider Anesthesiology; Visit Provider Anesthesiology
DX: M54.16 Radiculopathy, lumbar region (principal)
CPT/HCPCS: 62323; J1040; J3490

== ENCOUNTER 2022-06-25 14:26 | Outpatient (CLI) | payer BC, OTHER, SELFPAY ==
--- NOTE | 2022-06-25 14:28 | DI.RAD.S_ITS ---
PROCEDURE: PAIN L INTERLAMINAR/CAUDAL INJ INDICATIONS: SPONDYLOSIS COMPARISON: [facility], XA, PAIN L INTERLAMINAR/CAUDAL INJ, 05/15/2022, 16:06. FINDINGS: Fluoroscopic spot filming was performed to verify placement of spinal needles at the lower lumbar level(s), as labeled on the films. Appropriate location(s) of the needle tip(s) was confirmed by injection of iodinated contrast. IMPRESSION: Needle placement as above Dictated by: Bassam Barrientos M.D. on 06/25/2022 at 16:33 Transcribed by: NUZHAT on 06/25/2022 at 16:33 Approved by: Bassam Barrientos M.D. on 06/25/2022 at 16:50
[2022-06-25 14:45] VITALS: BP 127/65; PULSE 62; RESP 16; TEMP 36.4; O2SAT 99
[2022-06-25 15:11] VITALS: BP 137/89; PULSE 62; RESP 13; O2SAT 99
[2022-06-25] MEDS: methylPREDNISolone acetate 80 MG/ML VIAL INJ (15:14)
[2022-06-25] MEDS: IOPAMIDOL 15 ML VIAL 3 ML INJ (15:14)
[2022-06-25] MEDS: BUPIVACAINE 0.25% (PF) VIAL 2 ML INJ (15:15)
[2022-06-25 15:16] VITALS: BP 134/82; PULSE 64; RESP 14; O2SAT 100
[2022-06-25 15:20] VITALS: BP 142/86; PULSE 61; RESP 16; O2SAT 97
[2022-06-25 15:25] VITALS: BP 138/86; PULSE 65; RESP 16; O2SAT 97
--- NOTE | 2022-06-25 16:52 | P.PCN_ITS ---
Date/Time/Diagnoses Date of procedure: 06/25/22 Time of procedure: 15:00 Procedure Notes Physician: Kingsley Cronin Total Fluoroscopy time (seconds): 13 Total sedation minutes: 0 Procedure in detail & Post-procedure care: L4-5 Interlaminar Epidural Steroid Injection Indications: Bryan is presenting for treatment of lumbar radiculopathy with low back and leg pain. Preoperative diagnosis: Lumbar radiculopathy Postoperative diagnosis: Same Focused Examination: Ax3 Mood and affect are normal Vital Signs: VSS Consent: Following review of allergies and potential side effects/complications, including, but not necessarily limited to, infection, allergic reaction, local tissue breakdown, stroke, temporary or permanent nerve injury, paralysis, and possible , the patient indicated that they understood and agreed to proceed.? An informed consent document was signed by the patient, witnessed by a nurse and placed in the patient's chart.? Additionally, other treatment options including medications and physical therapy were reviewed with the patient. All questions were answered. Site was then marked. Anesthesia: Local Position: Prone Monitoring: NIBP, Pulse oximetry, 3 lead EKG Needle used: 18 G 3.5? Tuohy Contrast: Isovue 300M Injectate: Depo-Medrol 80 mg with 0.25% Bupivacaine 2 mL Technique: The skin was prepped with chloraprep and then draped in a sterile fashion. Time out was performed as per protocol. Oxygen applied via NC. Skin and subcutaneous structures of the needle entry site was then infiltrated with 3 mL of lidocaine 1%. Under AP, lateral and contralateral oblique fluoroscopic control, the Tuohy needle was guided into the L4-5 epidural space. The space was accessed with loss of resistance technique. Isovue 300M was then injected and the spread was consistent with the epidural space. There was no evidence for intravascular or intrathecal uptake. After negative aspiration, the above- mentioned injectate was then slowly administered and the needle withdrawn. The patient expressed no unusual discomfort or paresthesias during the injection. Band-Aids applied to injection sites. EBL: less than 1 ml Complications: None Post Procedure: Patient was taken to the recovery and monitored. The patient was provided a Pain Log to continue to record the patient's response to the target- specific procedure prior to the patient's follow-up visit with the referring physician. Patient was stable upon discharge. Detailed post procedure instructions were provided. Patient was asked to call in the event of worsening pain, fever, weakness, numbness or bladder or bowel incontinence.
== END 2022-06-25 15:28 | disposition home or self-care (01) ==
LOC: RAD 14:27
PROVIDERS: Family Provider Physician Assistant; PCP Nurse Practitioner Family; Referring Provider Anesthesiology; Visit Provider Anesthesiology
DX: M54.16 Radiculopathy, lumbar region (principal)
CPT/HCPCS: 62323; J1040; J3490

== ENCOUNTER 2022-12-08 14:56 | Outpatient (CLI) | payer BC, OTHER, SELFPAY ==
--- NOTE | 2022-12-08 14:57 | DI.RAD.S_ITS ---
PROCEDURE: PAIN L INTERLAMINAR/CAUDAL INJ INDICATIONS: SPONDYLOSIS COMPARISON: [facility], XA, PAIN L INTERLAMINAR/CAUDAL INJ, 06/25/2022, 15:12. [facility], XA, PAIN L INTERLAMINAR/CAUDAL INJ, 05/15/2022, 16:06. FINDINGS: Fluoroscopic spot filming was performed to verify placement of spinal needles at the L4-5 level(s), as labeled on the films. Appropriate location(s) of the needle tip(s) was confirmed by injection of iodinated contrast. IMPRESSION: Intraoperative fluoroscopic views demonstrating epidural injection. Dictated by: Hermilo Estrada M.D. on 12/08/2022 at 16:59 Approved by: Hermilo Estrada M.D. on 12/08/2022 at 16:59
[2022-12-08 15:10] VITALS: BP 132/72; PULSE 66; RESP 16; O2SAT 97
[2022-12-08 15:29] VITALS: BP 145/72; PULSE 58; PULSE 59; RESP 14; RESP 15; O2SAT 98; O2SAT 99
[2022-12-08] MEDS: iopamidoL 15 ML VIAL 3 ML INJ (15:31)
[2022-12-08] MEDS: DEXAMETHASONE 10 MG/ML VIAL INJ (15:31)
[2022-12-08 15:34] VITALS: BP 142/77; PULSE 57; RESP 21; O2SAT 100
[2022-12-08 15:35] VITALS: BP 136/73; PULSE 58; RESP 17; O2SAT 100
[2022-12-08 15:42] VITALS: BP 133/74; PULSE 61; RESP 16; O2SAT 100
--- NOTE | 2022-12-08 17:00 | P.PCN_ITS ---
Date/Time/Diagnoses Date of procedure: 12/08/22 Time of procedure: 15:30 Procedure Notes Physician: Kingsley Cronin Total Fluoroscopy time (seconds): 12 Total sedation minutes: 0 Procedure in detail & Post-procedure care: L4-5 Interlaminar Epidural Steroid Injection Indications: Bryan is presenting for treatment of lumbar radiculopathy with low back and leg pain. Preoperative diagnosis: Lumbar radiculopathy Postoperative diagnosis: Same Focused Examination: Ax3 Mood and affect are normal Vital Signs: VSS Consent: Following review of allergies and potential side effects/complications, including, but not necessarily limited to, infection, allergic reaction, local tissue breakdown, stroke, temporary or permanent nerve injury, paralysis, and possible , the patient indicated that they understood and agreed to proceed.? An informed consent document was signed by the patient, witnessed by a nurse and placed in the patient's chart.? Additionally, other treatment options including medications and physical therapy were reviewed with the patient. All questions were answered. Site was then marked. Anesthesia: Local Position: Prone Monitoring: NIBP, Pulse oximetry, 3 lead EKG Needle used: 18 G 3.5? Tuohy Contrast: Isovue 300M Injectate: Dexamethasone 10 mg with 1% lidocaine 2 mL Technique: The skin was prepped with chloraprep and then draped in a sterile fashion. Time out was performed as per protocol. Oxygen applied via NC. Skin and subcutaneous structures of the needle entry site was then infiltrated with 3 mL of lidocaine 1%. Under AP, lateral and contralateral oblique fluoroscopic control, the Tuohy needle was guided into the L4-5 epidural space. The space was accessed with loss of resistance technique. Isovue 300M was then injected and the spread was consistent with the epidural space. There was no evidence for intravascular or intrathecal uptake. After negative aspiration, the above- mentioned injectate was then slowly administered and the needle withdrawn. The patient expressed no unusual discomfort or paresthesias during the injection. Band-Aids applied to injection sites. EBL: less than 1 ml Complications: None Post Procedure: Patient was taken to the recovery and monitored. The patient was provided a Pain Log to continue to record the patient's response to the target- specific procedure prior to the patient's follow-up visit with the referring physician. Patient was stable upon discharge. Detailed post procedure instructions were provided. Patient was asked to call in the event of worsening pain, fever, weakness, numbness or bladder or bowel incontinence.
== END 2022-12-08 15:46 | disposition home or self-care (01) ==
LOC: RAD 14:57
PROVIDERS: Family Provider Physician Assistant; PCP Nurse Practitioner Family; Referring Provider Anesthesiology; Visit Provider Anesthesiology
DX: M54.16 Radiculopathy, lumbar region (principal)
CPT/HCPCS: 62323; J1100